=== PATIENT | female | born 1995 | race Caucasian/White ===

== ENCOUNTER → 2019-08-17 11:00 | Outpatient (BNVA) | payer OTHER, SELFPAY | PROVIDERS: Family Provider Family Medicine; PCP Family Medicine; Visit Provider Family Medicine | DX: I10 Essential (primary) hypertension (principal) | CPT/HCPCS: 80053; 85025 ==

== ENCOUNTER 2020-11-01 12:43 | Inpatient (IN) | payer OTHER, MEDICAID, SELFPAY ==
[2020-11-01] VITALS (52 sets, daily range): BP systolic 118–158; BP diastolic 66–111; PULSE 74–125; RESP 17; TEMP 36.1–36.9; O2SAT 97–99; BMI 25.4
[2020-11-01] MEDS: miSOPROStol 100 mcg tablet 25 MCG VAGINAL (13:13)
[2020-11-01 13:31] LABS: Basophils % 0.3 %; Eosinophils # 0.1 10^3/uL (0.0-0.8); Eosinophils % 0.5 %; Hemoglobin 12.1 g/dL (11.5-15.3); Lymphocytes # 1.8 10^3/uL (0.8-4.8); Lymphocytes % 17.3 %; Mean Corpuscular HGB Conc 33.6 g/dL (30.0-36.0); Mean Corpuscular Hemoglobin 31.9 pg (28.0-34.0); Mean Platelet Volume 10.6 fL (7.4-10.4); Monocytes # 0.6 10^3/uL (0.2-0.9); Monocytes % 5.6 %; Neutrophils # 7.88 10^3/uL (1.8-7.7); Neutrophils % 75.9 %; Nucleated Red Blood Cells % 0 %; Platelet Count 318 10^3/cmm (130-400); Red Blood Count 3.79 10^6/uL (4.1-5.3); Red Cell Distribution Width 12.8 % (12.1-15.1); White Blood Count 10.4 10^3/uL (4.0-10.0)
--- NOTE | 2020-11-01 16:11 | P.ANESASSM_ITS ---
Pre-Anesthetic Assessment Pre-Anesthetic Assessment: Height/Weight: Height 1.47 m Weight 55.338 kg Temp Pulse Resp BP 98.1 F 104 H 17 124/88 11/01/20 14:56 11/01/20 15:17 11/01/20 12:22 11/01/20 15:17 Was Beta Brett taken within 24 hours: N/A Was Clonidine taken within 24 hours: N/A Social: Social History: No alcohol and No tobacco Exam: Pre-Anes Outpt Exam: alert, oriented x 3, clear to auscultation bilaterally and regular rate & rhythm Airway: Submandibular: WNL Cervical ROM: WNL MP: 2 Dentition: Full CV/HEM: CV/HEM: HTN Anesthetic Plan: ASA status: 2 Anesthesia: Regional (specify below) (Labor epidural) Risk of > 500 ml blood loss (7ml/kg in children): No PFSH Anesthesia PFSH: Medical History (Updated 07/08/20 @ 12:49 by Madelyn Fernandez DO) Benign hypertension Surgical History History of appendectomy Family History Mother Crohn disease Father CAD (coronary artery disease) Social History Smoking and tobacco status: never smoked Alcohol intake: never Female Reproductive History: Date of last menstrual period: 01/30/20 : 5 Data Anesthesia CBC & Chem 7: 11/01/20 12:50 Other Labs: Laboratory Results - last 48 hr 11/01/20 12:50 WBC 10.4 H RBC 3.79 L Hgb 12.1 Hct 36.0 L MCV 95.0 MCH 31.9 MCHC 33.6 RDW 12.8 Plt Count 318 MPV 10.6 H Neut % (Auto) 75.9 Lymph % (Auto) 17.3 [place] % (Auto) 5.6 Eos % (Auto) 0.5 Baso % (Auto) 0.3 Neut # (Auto) 7.88 H Lymph # (Auto) 1.8 [place] # (Auto) 0.6 Eos # (Auto) 0.1 Baso # (Auto) 0.0 Nucleated RBC % (auto) 0 Nucleated RBCs # 0.0 Cardiac Studies: No Data to Display
[2020-11-01] MEDS: acetaminophen 325 mg Tablet 650 MG PO (17:01)
--- NOTE | 2020-11-01 17:04 | P.HP_ITS ---
Providers/Chief Complaint Admitting Physician: Luis Brown MD Primary Care Provider: Luis Brown MD Chief Complaint: elevated blood pressure and blurred vision History of Present Illness Rebekah Wagner is a 25 year old female who is a 5 para 2 with an EDC of 11/05/2020. She has been followed by this physician throughout her without any major problems or concerns. She was working today and found herself a little lightheaded and having some blurred vision. She also had a headache. At that time, they took her blood pressure and it was 156/112 and checked her urine which showed 2+ protein in her urine. She called this physician's office and she was sent to [facility] labor and delivery directly. On arrival to the OB department her blood pressure was 154/96. At that time a decision was made to proceed with misoprostel cervical ripening for -induced hypertension. She denies any significant edema or shortness of breath at this time. CBC was done on admission which showed a normal platelet count. The remainder of the preeclampsia profile will 1 and be drawn to see where we are at. Presently her blood pressure has come down to high normal levels with no tachycardia or other symptoms at this time. Her headache is improved. Review of Systems Const: Denies: fever(s), chills, change in appetite, change in weight or fatigue Eyes: Reports: blurry vision (This is improved at this time.) ENMT: Denies: throat pain, odynophagia or swelling of lips/tongue Card: Denies: chest pain, edema or dyspnea on exertion Resp: Denies: dyspnea, productive cough or non-productive cough GI: Denies: abdominal pain, nausea, vomiting, diarrhea or constipation : Reports: amenorrhea (She is 39 weeks . She is having occasional contractions.); Denies: vaginal bleeding Musc: Denies: neck pain or back pain Neuro: Reports: headache(s) (This is improved at this time.); Denies: sensory changes, difficulty walking, dizziness or vertigo Psych: Reports: anxiety (Slight.) Endo: Denies: polyuria, polydipsia, excessive sweating or heat intolerance Aftab/Lymph: Denies: easy bruising or enlarged lymph nodes All/Imm: Denies: urticaria, throat swelling or facial swelling Medications/Allergies Home Medications Medication Instructions Recorded Confirmed Last Taken Type azithromycin 250 mg tablet See Rx Instructions PO .COMPLEX #6 07/08/20 07/08/20 Unknown Rx tab amoxicillin 875 mg-potassium 1 tab PO Q12H #20 tab 07/15/20 Unknown Rx clavulanate 125 mg tablet ondansetron 4 mg disintegrating 4 mg PO Q8H PRN #10 tab 08/31/20 Unknown Rx tablet Allergies Allergy/AdvReac Type Severity Reaction Status Date / Time No Known Allergies Allergy Unverified 07/08/20 12:43 PFSH Acute PFSH: Medical History (Updated 11/01/20 @ 17:12 by Luis Brown MD) Benign hypertension Surgical History History of appendectomy Family History Mother Crohn disease Father CAD (coronary artery disease) Social History Smoking and tobacco status: never smoked Alcohol intake: never Female Reproductive History: Date of last menstrual period: 01/30/20 : 5 Vitals/I&O/Wt Last Vital Signs Temp 98.1 F 11/01/20 14:56 Pulse 99 11/01/20 16:38 Resp 17 11/01/20 12:22 BP 131/80 11/01/20 16:38 Weight last 48 hrs Weight 55.338 kg Physical Exam Const: COMMON NORMALS: no acute distress (She appears slightly uncomfortable with contractions.), healthy appearing, alert and well nourished HENMT: COMMON NORMALS: moist oral mucous membranes Resp: COMMON NORMALS: normal respiratory effort, No retractions, No use of accessory muscles and clear to auscultation bilaterally Cardio: COMMON NORMALS: regular rate, regular rhythm and No murmurs present (Cardio) GI: COMMON NORMALS: non-tender INSPECTION: Yes abdominal distension (She is 39 weeks .) Back/Pelvis: COMMON NORMALS: no CVA tenderness and no thoracic nor lumbar tenderness Extremity: COMMON NORMALS: normal to inspection, full ROM, no calf tenderness and no pedal edema Neuro: COMMON NORMALS: CN's II-XII intact bilaterally, moves all extremities, no focal motor deficits, no sensory deficits noted and deep tendon reflexes 2+ bilaterally Psych: COMMON NORMALS: mental status grossly normal, Normal thought process present, cooperative, normal affect and activity/motor behavior normal Skin: COMMON NORMALS: no rashes or lesions noted Data : 11/01/20 12:50 A&P Assessment and plan (1) -induced hypertension: As she is term and has -induced hypertension the decision is made after discussion with the patient and spouse to proceed with cervical ripening and induction. Her blood pressure will be monitored closely and if there is any sign of problems we may begin magnesium or emergency hypertensive measures if needed. We will going to check her preeclampsia profile from blood and urine and adjust orders depending on those findings. Status: Acute (2) Term : Secondary to her -induced hypertension we will go ahead and proceed with cervical ripening using misoprostol. Benefits and risks have been discussed with the patient and permission form has been signed. Status: Acute Attestations Medical Necessity Statement*: This patient has a term with -induced hypertension. We have begun induction processes to deliver her baby. I expect her hospital stay to be greater than 2 midnights at this time. Time Spent in Patient Care: 16 - 35 minutes Coding Level of Care Code Acute Transitional Kindergarten Teacher for Robb Fwd Diagnoses -induced hypertension O13.9 Term Z34.90
[2020-11-01 17:56] LABS: Add Urine Microscopic? YES; Bilirubin Urine 1+ (Negative); Blood Urine 2+ (Negative); Glucose Urine UA Norm (Normal); Ketones Urine 2+ (Negative); Leukocyte Esterase Urine Negative (Negative); Nitrate Urine Negative (Negative); Protein Urine Neg (Negative); Urine Appearance Clear (CLEAR); Urine Color Yellow (Yellow); Urobilinogen Urine 1 mg/dL (Negative); pH Urine 6.5 (5-7)
[2020-11-01 17:57] LABS: Bacteria Urine 1+ /hpf; Mucus Urine 2+ /hpf
[2020-11-01 18:01] LABS: Chloride 99 mmol/L (98-107); Potassium 4.1 mmol/L (3.5-5.1)
[2020-11-01 18:10] LABS: Urine Creatinine 170 mg/dL (28-217)
[2020-11-01 18:11] LABS: UPRO/UCREAT Ratio 0.12 mg/mg CR; Urine Protein Random 21 mg/dL
[2020-11-01 18:38] LABS: Alanine Aminotransferase 19 U/L (0-33); Albumin Level 3.8 g/dL (3.5-5.2); Alkaline Phosphatase 156 IU/L (35-105); Aspartate Amino Transferase 18 U/L (0-32); Blood Urea Nitrogen 12 mg/dL (6-20); Calcium 8.5 mg/dL (8.5-10.5); Carbon Dioxide 21 mmol/L (22-29); Globulin 2.8 g/dL (1.3-4.6); Glomerular Filtration Rate 121.8 mL/min (90-130); Glucose 69 mg/dL (65-115); Osmolality Calculated 272 mOsm/kg (285-295); Sodium 132 mmol/L (136-145); Total Bilirubin 0.5 mg/dL (0.15-1.2); Total Protein 6.6 g/dL (6.6-8.7); Uric Acid 4.3 mg/dL (2.4-5.7)
[2020-11-01] MEDS: lactated ringers 1,000 ML 999 ML IV (20:02)
--- NOTE | 2020-11-01 21:12 | ANES.PROC ---
Anesthesia Procedures Procedure/Date: 11/01/20 Procedure Narrative: LABOR EPIDURAL Epidural: Time Out Performed: Yes Consents Signed: Procedure Consent Consent: from patient, risks and benefits reviewed and patient agrees to proceed Lumbar Level: L3-L4 Epidural position: sitting Epidural procedure: sterile prep of area, 1% lidocaine to numb the area (2 ML), 18 g needle, negative for paresthesia passed, neg for paresthesia, test dose given, 1.5% xylocaine 1:200k epi (3 ML), placed PCEA, no systemic response, sterile dressing applied, L.U.D. no apparent complications and 0.2% Ropiavacaine @ mls/hr (9) Additional Comments: LOT [id number] EXP 2021-03-30 LABOR EPIDURAL REQUESTED. R/B DISCUSSED. PATIENT WISHES TO PROCEED. STERILE PREP AND DRAPE. JOANA, CATH ADVANCED EASILY. TAPED AT 11. TOLERATED WELL. NEG TEST DOSE. GOOD PAIN CONTROL NOTED.
[2020-11-01] MEDS: dextrose 5%-lactated ringers 1,000 ML 125 ML IV (21:21)
[2020-11-02] VITALS (19 sets, daily range): BP systolic 108–137; BP diastolic 62–93; PULSE 64–98; RESP 16; TEMP 35.7–36.9
--- NOTE | 2020-11-02 00:04 | P.PCNOB_ITS ---
Delivery Note: Date of delivery: November 02, 2020 this 25-year-old 5 now para 3 female at 39 weeks and 4 days gestation had began having a headache and blurred vision. She was found to have elevated blood pressure and protein in her urine and thus she was sent to [facility] labor and delivery. Evaluation there found her to have elevated blood pressure but no edema or other significant findings. As she was term with -induced hypertension the decision was made to proceed with misoprostol cervical ripening for induction purposes. She was given misoprostol 25 mcg x 1 dose and began having contractions. She contracted throughout the day and dilated to approximately 5 cm dilated. She was feeling a lot of pressure in spite of epidural anesthesia. Artificial rupture membranes was accomplished with a small amount of clear fluid obtained. She dilated to complete cervical dilatation and +2 station. She then was able to deliver a healthy, viable female by spontaneous vaginal delivery at 2327. Upon delivery the head the mouth and nose were suctioned at the perineum followed by delivery of the right shoulder anteriorly in the left shoulder posteriorly and the remainder of the . The was suctioned some more and then laid on mother's abdomen. She continued to spit up lots of clear fluid and after 1 minute the umbilical cord was clamped and cut. The was then taken to the warmer where she was deleed with approximately 20 mL of clear fluid obtained. She developed some tachypnea and the O2 sats were slow to come up. Therefore, she was given positive pressure with oxygen around 30% and is doing well. Infant Apgars were 7 and 8 at 1 and 5 minutes respecti vely. There was no nuchal cord and the cord had 3 blood vessels. There was no episiotomy and no lacerations. weighed 6 pounds 5 ounces. There was no complications. Estimated blood loss approximately 113 mL. A&P Assessment and plan (1) -induced hypertension: This was not a problem during labor or delivery process. Presently her blood pressure is not bad at all. Status: Acute (2) Normal spontaneous vaginal delivery: Patient did well with labor and delivery process after misoprostol cervical ripening. She will be followed for routine care and change will be made as necessary. Status: Acute Coding Level of Care Code Acute Production Machine Shop Supervisor for Cristian Sutton Diagnoses -induced hypertension O13.9 Normal spontaneous vaginal delivery O80
--- NOTE | 2020-11-02 07:16 | P.PN_ITS ---
LAMP CLEANER Subjective Subjective: Interval history: Patient is doing well with mild lochia. She is bonding with very well with her infant. She is formula feeding at this time. Labor: Station: +1 Amniotic Membrane Status: Ruptured Monitor Mode: Palpation Contraction Pattern: Regular Vitals/I&O/Wt Last Vital Signs Temp 96.3 F L 11/02/20 05:34 Pulse 76 11/02/20 05:33 Resp 16 11/02/20 00:34 BP 131/84 11/02/20 05:33 Pulse Ox 98 11/01/20 21:41 11/01/20 11/02/20 11/02/20 22:59 06:59 14:59 Intake Total 1000 / 1000 1036 / 2036 Output Total 900 / 910 Balance 990 / 990 136 / 1126 Weight last 48 hrs Weight 55.338 kg Physical Exam Const: COMMON NORMALS: no acute distress, patient oriented x3, healthy appearing, alert and well nourished Resp: COMMON NORMALS: normal respiratory effort, No retractions and No use of accessory muscles Cardio: COMMON NORMALS: regular rate, regular rhythm and No murmurs present (Cardio) RATE: regular rate RHYTHM: regular rhythm GI: COMMON NORMALS: Normal to inspection, nondistended, normoactive bowel sounds present, Soft to palpation and non-tender PALPATION: Yes Soft to palpation : COMMON NORMALS: Yes no CVA tenderness BLADDER/KIDNEY EXAM: Yes no CVA tenderness EXTERNAL FEMALE EXAM: Yes other (Fundus is firm.) Back/Pelvis: COMMON NORMALS: no CVA tenderness Neuro: COMMON NORMALS: patient oriented x3 SENSORIUM/ORIENTATION: Yes alert Psych: COMMON NORMALS: mental status grossly normal, Normal thought process present and cooperative THOUGHT PROCESS: Normal thought process present Skin: COMMON NORMALS: no rashes or lesions noted, no wounds and turgor normal GENERAL SKIN EXAM: no rashes or lesions noted and turgor normal Data : 11/01/20 12:50 11/01/20 17:15 A&P Assessment and plan (1) Normal spontaneous vaginal delivery: Patient is doing well with just mild lochia. She is ambulating well and tolerating a regular diet. Status: Acute (2) -induced hypertension: Blood pressures are running normal at this time. Status: Acute Attestations Medical Necessity Statement*: This patient delivered a baby by spontaneous vaginal delivery a little before midnight last night. She will require 1 more midnight hospital stay. Time Spent in Patient Care: less than 15 minutes Coding Level of Care Code Acute Speech Language Pathologist Prn for Chg Fwd Diagnoses Normal spontaneous vaginal delivery O80 -induced hypertension O13.9
[2020-11-02] MEDS: docusate sodium 100 mg Capsule PO ×2 (09:05→21:45)
[2020-11-02] MEDS: ibuprofen 800 mg tablet PO ×3 (09:05→21:44)
[2020-11-02] MEDS: prenatal vitamin Capsule 1 CAP PO (09:06)
[2020-11-02 14:29] LABS: Hematocrit 32.6 % (37.0-47.0); Hemoglobin 10.8 g/dL (11.5-15.3); Mean Corpuscular HGB Conc 33.1 g/dL (30.0-36.0); Mean Corpuscular Hemoglobin 31.3 pg (28.0-34.0); Mean Corpuscular Volume 94.5 fL (81-99); Mean Platelet Volume 10.8 fL (7.4-10.4); Platelet Count 278 10^3/cmm (130-400); Red Blood Count 3.45 10^6/uL (4.1-5.3); Red Cell Distribution Width 12.6 % (12.1-15.1)
[2020-11-03 00:01] VITALS: RESP 16
[2020-11-03 04:32] VITALS: BP 125/83; PULSE 75; TEMP 35.9
--- NOTE | 2020-11-03 09:06 | PM.OBGYDC ---
Discharge Providers LIFE SCIENCES TEACHER Date of Admission: 11/01/20 12:43 Date of Discharge: 11/03/20 Attending Provider at Admission: Luis Brown MD Attending Provider at Discharge: Luis Brown MD Primary Care Provider: Luis Brown MD Diagnoses at Discharge Discharge Diagnosis (1) Normal spontaneous vaginal delivery: Status: Acute (2) -induced hypertension: Status: Acute Reason for Visit Reason for Visit: elevated blood pressure and blurred vision Hospital Course Hospital Course Patient was admitted on her day of admission secondary to -induced hypertension and term . She was given misoprostol 25 mcg x 1 dose and delivered by spontaneous vaginal delivery shortly before midnight the day of admission. Since delivery, she is done extremely well. She is just had mild lochia with no significant clots or pain or cramping. She is ambulating well and tolerating regular diet and is felt to be stable for discharge. Information Peripartum Data: Delivery Method: Vaginal Physical Exam Const: COMMON NORMALS: no acute distress and healthy appearing GENERAL APPEARANCE: cooperative, comfortable and well kempt HENMT: COMMON NORMALS: moist oral mucous membranes Resp: COMMON NORMALS: normal respiratory effort and clear to auscultation bilaterally AUSCULTATION: clear to auscultation bilaterally Cardio: COMMON NORMALS: regular rate and regular rhythm RATE: regular rate RHYTHM: regular rhythm GI: COMMON NORMALS: Normal to inspection, nondistended, normoactive bowel sounds present, Soft to palpation and non-tender (Fundus is firm.) PALPATION: Yes Soft to palpation Extremity: COMMON NORMALS: normal to inspection, full ROM and no pedal edema Neuro: COMMON NORMALS: no focal motor deficits and no sensory deficits noted Psych: COMMON NORMALS: mental status grossly normal, cooperative and normal affect APPEARANCE: Yes well kempt Skin: COMMON NORMALS: no rashes or lesions noted GENERAL SKIN EXAM: no rashes or lesions noted Discharge Data Data Completed and Pending: Labs from last 24 hours 11/02/20 13:52 WBC 10.0 RBC 3.45 L Hgb 10.8 L Hct 32.6 L MCV 94.5 MCH 31.3 MCHC 33.1 RDW 12.6 Plt Count 278 MPV 10.8 H Vitals: Last Vital Signs Temp 96.6 F L 11/03/20 04:32 Pulse 75 11/03/20 04:32 Resp 16 11/03/20 00:01 BP 125/83 11/03/20 04:32 Pulse Ox 98 11/01/20 21:41 Discharge Plan Discharge Patient Disposition: Home Condition: Stable Prescriptions: No Action azithromycin [Zithromax Z-Ramsey] 250 mg tablet See Rx Instructions PO .COMPLEX Qty: 6 RF: 0 amoxicillin-pot clavulanate [Augmentin] 875-125 mg tablet 1 tab PO Q12H Qty: 20 RF: 0 ondansetron 4 mg tablet,disintegrating 4 mg PO Q8H PRN (Reason: nausea and vomiting) Qty: 10 RF: 0 Referrals: Luis Brown MD [Primary Care Provider] - 6 Weeks Discharge Diet: Usual diet Discharge Activity: Resume usual activity Patient Instructions: Opioid Safety Discharge Attestations LIFE SCIENCES TEACHER Time Spent in Discharge Care*: less than 30 min Specific Discharge Activities: Specific discharge activities: educating patient, documenting/other paperwork and evaluating patient/reviewing data Coding Level of Care Code Acute Shaving Machine Operator for [facility] Fwd Exam Comprehensive Diagnoses Normal spontaneous vaginal delivery O80 -induced hypertension O13.9
[2020-11-03 09:49] VITALS: BP 175/99; PULSE 101; TEMP 36.7
[2020-11-03] MEDS: prenatal vitamin Capsule 1 CAP PO (09:51)
[2020-11-03] MEDS: ibuprofen 800 mg tablet PO (09:51)
[2020-11-03] MEDS: docusate sodium 100 mg Capsule PO (09:52)
[2020-11-03 09:53] VITALS: BP 160/95; PULSE 88
[2020-11-03 09:57] VITALS: BP 148/92; PULSE 107
[2020-11-03 10:10] VITALS: BP 148/92; PULSE 107; RESP 15; TEMP 36.8
== END 2020-11-03 10:10 | disposition home or self-care (01) | DRG 807 ==
LOC: OPOB 12:50 → OBGYN 12:50
PROVIDERS: Admitting Provider Family Medicine; PCP Family Medicine; Visit Provider Family Medicine
DX: O13.4 Gestational [pregnancy-induced] hypertension without significant proteinuria, complicating childbirth (principal); Z37.0 Single live birth; Z3A.39 39 weeks gestation of pregnancy
CPT/HCPCS: 36415; 51702; 59025; 59409; 80053; 81001; 82570; 84156; 84550; 85025; 85027; 99211; J2795

== ENCOUNTER → 2021-02-22 11:28 | Outpatient (BNVA) | payer OTHER, MEDICAID, SELFPAY | PROVIDERS: PCP Family Medicine; Visit Provider Nurse Practitioner | DX: J06.9 Acute upper respiratory infection, unspecified (principal); Z20.822 Contact with and (suspected) exposure to COVID-19 | CPT/HCPCS: 87635 ==

== ENCOUNTER → 2021-03-08 11:39 | Outpatient (BNVA) | payer OTHER, MEDICAID, SELFPAY | PROVIDERS: PCP Family Medicine; Visit Provider Nurse Practitioner | DX: R53.83 Other fatigue (principal); R25.2 Cramp and spasm | CPT/HCPCS: 80053; 82306; 82728; 84439; 84443; 85025 ==

== ENCOUNTER → 2021-03-27 14:37 | Outpatient (BNVA) | payer OTHER, MEDICAID, SELFPAY | PROVIDERS: PCP Family Medicine; Visit Provider Pediatrics Adolescent Medicine | DX: R30.9 Painful micturition, unspecified (principal) | CPT/HCPCS: 81003 ==

== ENCOUNTER → 2021-04-26 14:12 | Outpatient (BNVA) | payer OTHER, MEDICAID, SELFPAY | PROVIDERS: PCP Family Medicine; Visit Provider Obstetrics & Gynecology | DX: Z12.4 Encounter for screening for malignant neoplasm of cervix (principal) | CPT/HCPCS: 88175 ==

== ENCOUNTER 2021-08-17 08:32 | Outpatient (CLI) | payer OTHER, MEDICAID, SELFPAY ==
--- NOTE | 2021-08-17 | US_ITS ---
WS: [id number] TRANSABDOMINAL PELVIC AND TRANSVAGINAL PELVIC ULTRASOUND HISTORY: PELVIC PAIN COMPARISON: 07/13/2016 Uterus: 7.1 cm x 4.7 cm x 3.8 cm. Normal size uterus is mobile. No fibroid or mass. Endometrium: 1.1 cm. Very minimally heterogeneous endometrium. No abnormality. Right ovary: 4.1 cm x 2.5 cm x 2.1 cm. Normal size RIGHT ovary with a few small follicles. In the jessica tral over this area increased echogenicity which may be collapsing hemorrhagic cyst. Left ovary: 3.5 cm x 1.7 cm x 1.8 cm. Small follicles. No mass. Normal vascularity. There is a very small amount of free fluid in the cul-de-sac and adjacent to the RIGHT ovary. US/US pelvic with transvaginal IMPRESSION: 1. No endometrial abnormality. 2. Small amount of free fluid in the pelvis and adjacent to the RIGHT ovary. 3. Mildly hemorrhagic cyst within the RIGHT ovary appears collapsed. No solid mass.
== END 2021-08-17 08:33 | disposition home or self-care (01) ==
PROVIDERS: PCP Family Medicine; Visit Provider Nurse Practitioner
DX: R10.2 Pelvic and perineal pain (principal); N83.201 Unspecified ovarian cyst, right side
CPT/HCPCS: 76830; 76856

== ENCOUNTER → 2022-01-23 11:19 | Outpatient (BNVA) | payer OTHER, MEDICAID, SELFPAY | PROVIDERS: Visit Provider Family Medicine | DX: R10.13 Epigastric pain (principal) | CPT/HCPCS: 80053; 85025 ==

== ENCOUNTER → 2022-02-01 12:55 | Outpatient (BNVA) | payer OTHER, MEDICAID, SELFPAY | PROVIDERS: Referring Provider Student in an Organized Health Care Education/Training Program; Visit Provider Student in an Organized Health Care Education/Training Program | DX: D72.820 Lymphocytosis (symptomatic) (principal) | CPT/HCPCS: 36415; 80503; 82550; 84443; 84484; 85651; 86038; 86140; 86308; 86618; 86664; 86665; 86666; 86757 ==

== ENCOUNTER 2022-03-09 14:55 | Outpatient (CLI) | payer OTHER, MEDICAID, SELFPAY ==
--- NOTE | 2022-03-09 15:15 | USCV_ITS ---
Rebekah Wagner Age: 26 Gender: F : 1995 Exam Date: 03/09/2022 15:05 Ordering Phys: Usha Bangura MD Technologist: Clarissa Flores [place] [facility] [place]: Tachycardia BP: 130 / 80 HR: 92 Rhythm: Sinus Technical Quality: Adequate MEASUREMENTS (Male / Female) Normal Values 2D ECHO LV Chamber Size 2.8 cm RV Chamber Size 2.5 cm LV Ejection Fraction MOD 2C 67.9 % LV Ejection Fraction 2C AL 69.9 % LA Diameter 2.8 cm LA Width 2.1 cm LA Height 2.4 cm RA Width 2.5 cm RA Height 2.4 cm IVC Diameter 1.1 cm M-MODE Aortic Annulus Diameter 2.6 cm LA Ao Ratio MM 1.1 MV E Point Septal Separation 0.7 cm DOPPLER AV Peak Velocity 127.0 cm/s LVOT Peak Velocity 99.0 cm/s MV Area PHT 4.1 cm squared Mitral E to A Ratio 1.0 MV E' Velocity 51.0 cm/s Mitral E to MV E' Ratio 4.8 Mitral E to LV E' Lateral Ratio 4.6 Mitral E to LV E' Septal Ratio 5.0 TR Peak Velocity 110.7 cm/s TR Peak Gradient 4.9 mmHg TR Mean Velocity 72.6 cm/s TR Mean Gradient 2.5 mmHg TR Velocity Time Integral 25.4 cm TV Peak E Velocity 68.0 cm/s Right Atrial Pressure 3.0 mmHg Pulmonary Artery Systolic Pressu 7.9 mmHg RV Acceleration Time 0.2 s RV Ejection Time 0.3 s RV AcT/ET 0.5 FINDINGS Left Ventricle Left ventricle is normal in size. LV systolic function is normal with EF 55 to 60%. No regional wall motion abnormalities are seen. Diastolic function is normal Right Ventricle Normal in size and function Right Atrium Normal in size Left Atrium Normal in size Mitral Valve Mitral valve is structurally normal. No significant stenosis or regurgitation Aortic Valve Structurally normal aortic valve. No significant stenosis or regurgitation. Tricuspid Valve Trace tricuspid regurgitation. Insufficient TR jet to evaluate RVSP. Pulmonic Valve Not well visualized Pericardium Normal Aorta Normal in size IVC IVC appears to be normal CONCLUSIONS LV systolic function is normal with EF 55 to 60%. Diastolic function is normal. Trace tricuspid regurgitation. No comparison studies are available Tim Da Silva MD (Electronically Signed) Final Date: 24 March 2022 12:38 S
== END 2022-03-09 14:56 | disposition home or self-care (01) ==
PROVIDERS: PCP Family Medicine; Visit Provider Student in an Organized Health Care Education/Training Program
DX: R00.0 Tachycardia, unspecified (principal); R00.2 Palpitations; I07.1 Rheumatic tricuspid insufficiency
CPT/HCPCS: 93306

== ENCOUNTER 2022-03-24 17:23 | Outpatient (CLI) | payer OTHER, MEDICAID, SELFPAY ==
--- NOTE | 2022-03-24 17:36 | XRR_ITS ---
PROCEDURE INFORMATION: Exam: XR Abdomen Exam date and time: 03/24/2022 5:37 PM Age: 26 years old Clinical indication: Abdominal pain; Additional info: Stomach pain TECHNIQUE: Imaging protocol: Radiologic exam of the abdomen. Views: Frontal supine view of the abdomen. 1 View. COMPARISON: No relevant prior studies available. FINDINGS: Gastrointestinal tract: Constipation without bowel dilation to indicate obstruction. Bones/joints: Unremarkable. XR/XR [id number] IMPRESSION: Constipation without bowel dilation to indicate obstruction.
== END 2022-03-24 17:24 | disposition home or self-care (01) ==
LOC: RAD 17:23
PROVIDERS: PCP Family Medicine; Visit Provider Nurse Practitioner
DX: K59.00 Constipation, unspecified (principal); R10.9 Unspecified abdominal pain
CPT/HCPCS: 74018

== ENCOUNTER → 2022-06-07 09:17 | Outpatient (BNVA) | payer OTHER, MEDICAID, SELFPAY | PROVIDERS: PCP Family Medicine; Visit Provider Nurse Practitioner | DX: J02.9 Acute pharyngitis, unspecified (principal) | CPT/HCPCS: 87070 ==

== ENCOUNTER 2022-06-19 11:30 | Outpatient (CLI) | payer OTHER, MEDICAID, SELFPAY ==
--- NOTE | 2022-06-19 12:00 | USCV_ITS ---
Rebekah Wagner Age: 27 Gender: F : 1995 Exam Date: 06/19/2022 11:38 Ordering Phys: Saúl Lee MD ([email or web address]) Technologist: CT Exam Location: [facility] – [place] Indication: stenosis/occlusion Risk Factors: Previous Vascular Surgery: Right Brachial BP: / Left Brachial BP: / Right Left Velocity (cm/s) Spectral Plaque Velocity (cm/s) Spectral Plaque Syst/Diast Broadening Syst/Diast Broadening 83.20/ 22.70 Prox CCA 124.50/ 25.10 85.20/ 27.50 Mid CCA 123.40/ 32.80 87.90/ 33.00 Distal CCA 101.60/ 38.20 73.30/ 34.80 Prox ICA 75.50 / 32.60 88.10/ 35.90 Mid ICA 88.30 / 30.90 78.70/ 31.20 Distal ICA 76.30 / 34.30 67.80 ECA 65.00 1.00 ICA/CCA 0.71 Antegrade Vertebral Antegrade 65.10/ 16.50 cm/s 97.00/ 30.90 cm/s Tri Subclavian Tri 83.50 92.90 FINDINGS No significant plaques No Unstable lesions normal Doppler flow velocities and ratios CONCLUSIONS No significant stenosis or unstable lesions in the internal carotid arteries bilaterally, based on the above findings Dr Saúl Lee MD [facility] (Electronically Signed) Final Date: 21 June 2022 08:24 S
== END 2022-06-19 11:31 | disposition home or self-care (01) ==
PROVIDERS: PCP Family Medicine; Visit Provider Internal Medicine Cardiovascular Disease
DX: I65.23 Occlusion and stenosis of bilateral carotid arteries (principal)
CPT/HCPCS: 93880

== ENCOUNTER → 2022-07-04 12:28 | Outpatient (BNVA) | payer OTHER, MEDICAID, SELFPAY | PROVIDERS: PCP Family Medicine; Visit Provider Family Medicine | DX: R00.0 Tachycardia, unspecified (principal); G47.00 Insomnia, unspecified; R06.02 Shortness of breath; I10 Essential (primary) hypertension | CPT/HCPCS: 80053; 82607; 85025 ==

== ENCOUNTER 2022-08-08 10:00 | Outpatient (CLI) | payer MEDICAID, SELFPAY ==
[2022-08-08 10:14] VITALS: BMI 19.4
--- NOTE | 2022-08-08 11:13 | ECG_ITS ---
[facility] Test Date: 2022-08-08 Pat Name: Rebekah Wagner Department: Room: Gender: Female Investment Analyst: : 1995 Requested By: Saúl Lee Order Number: [id number] Mica MD: Saúl Lee M.D. Interpretive Statements NAME OF STUDY: Exercise/sestamibi/sestamibi stress test INDICATION: VARGAS, PROCEDURE: The baseline electrocardiogram showed normal sinus rhythm with a diffuse nonspecific ST-T changes. At the baseline, the patient's blood pressure was 140/85 mm Hg with a heart rate of 106. The patient exercised for 11 minutes and 30 seconds on a standard Brenden protocol. Patient attained a maximum heart rate of 181 beats per minute(93% of the maximum predicted heart rate) with a blood pressure at the peak exercise of 157/95 mm Hg. The EKG at the peak exercise revealed no significant changes. Patient did not have any chest pain or any significant arrhythmis with the exercise Sestamibi was injected 1 minute prior to the peak exercise During the recovery phase, there were no new changes. Blood pressure at the end of the recovery phase was 127/85 mm Hg with a heart rate of 102 per minute. CONCLUSION: 1. No significant EKG changes with the treadmill exercise 2. No exercise-induced chest pain or cardiac arrhythmia 3. Good exercise tolerance, attained a maximum of 13.5 METs 4. Sestamibi/Sestamibi perfusion results pending; see separate report. Electronically Signed On 08-11-2022 13:50:39 [employer] by Saúl Lee M.D. [email or web address]
--- NOTE | 2022-08-08 11:13 | NMCV_ITS ---
NM nickie perf SPECT r/s* [id number] Rebekah Wagner Age: 27 Gender: F : 1995 Exam Date: 08/08/2022 11:58 Ordering Phys: Saúl Lee MD ([email or web address]) Technologist: SHERYL Aj Exam Location: [facility] Indications: DYSPNEA ON EXERTION STRESS TEST Please [facility] IMAGE PROTOCOL Rest/Stress 1 Exercise Day Radiopharmaceutical Dose (mCi) Administration Site Administered by Rest: Tc-99m 9.8 IV SHERYL Aj Sestamibi Stress:Tc-99m 30.1 IV SHERYL Avilez Sestamibi Rest: 08-Aug-2022 60 Discovery 630 Stress: 08-Aug-2022 30 Discovery 630 Radiopharmaceutical was injected at 91 % maximum heart rate. Images obtained in supine and prone position. SPECT RESULTS Technical Quality: Excellent Raw Data Analysis: Normal Image Corrections: No attenuation or motion correction applied Summed Stress Score: 0 Summed Rest Score: 0 Summed Difference Score: 0 PERFUSION FINDINGS Fairly uniform myocardial tracer uptake FUNCTIONAL RESULTS (calculated via Gated SPECT) Stress Image LV EF (%): 71 Stress EDV (mL):48 TID: 0.88 Stress ESV (mL):14 FUNCTIONAL FINDINGS: Segmental wall motion analysis revealing no gross wall motion abnormalities IMPRESSIONS 1. Unremarkable Myocardial perfusion imaging. 2. Normal LV ejection fraction of 71%. 3. LV wall motion analysis revealing no gross wall motion abnormalities. 4. Normal LV volume Low probability for coronary ischemia, based on the above findings Dr Saúl Lee MD [facility] (Electronically Signed) Final Date: 08 August 2022 13:30 S
[2022-08-08 12:52] VITALS: BP 127/85; PULSE 103
== END 2022-08-08 10:01 | disposition home or self-care (01) ==
LOC: CDL 10:05
PROVIDERS: PCP Family Medicine; Visit Provider Internal Medicine Cardiovascular Disease
DX: R06.09 Other forms of dyspnea (principal)
CPT/HCPCS: 36415; 78452; 81025; 93017; A9500

== ENCOUNTER 2022-09-04 13:49 | Inpatient (IN) | payer MEDICAID, SELFPAY ==
[2022-09-04] VITALS (59 sets, daily range): BP systolic 72–119; BP diastolic 41–84; PULSE 118–174; RESP 0–39; TEMP 36.9–39.7; O2SAT 93–100; BMI 19.4
--- NOTE | 2022-09-04 13:55 | ECG_ITS ---
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 Measurements Intervals [place] Rate: 182 P: 0 TN: 0 QRS: 69 QRSD: 60 T: 70 QT: 235 QTc: 410 Interpretive Statements SUPRAVENTRICULAR TACHYCARDIA NONSPECIFIC ST & T-WAVE ABNORMALITY CRITICAL TEST RESULT No previous ECG available for comparison Electronically Signed On 09-04-2022 18:18:43 AUTOMATED PROCESS OPERATOR by Brian Luna M.D. [email or web address] [email or web address]/store/[id number] f
--- NOTE | 2022-09-04 13:56 | W.ED.FEVER ---
HPI - Fever General: Chief Complaint: Fever Stated Complaint: fever, n/v Time Seen by Provider: 09/04/22 13:56 History of Present Illness: Ms. Wagner is a 27-year-old lady with history of hypertension, tachycardia presenting to the emergency department for generalized illness. Reports symptoms starting over the past 2 days with body aches, chills, subjective fevers, nausea, vomiting, tachycardia, shortness of breath, lightheadedness. Symptoms are worse with exertion. Moderate to severe in intensity. No other specific changes in health, exacerbating, or alleviating factors identified. Onset (ago): day(s) Exacerbating factors: nothing Relieving factors: nothing Associated symptoms: Reports chills, chest pain, myalgias, nausea, short of breath, vomiting and other Review of Systems General: Reports: 10 or more systems reviewed and unremarkable except in HPI and below Const: Reports: chills Card: Reports: chest pain GI: Reports: nausea and vomiting PFS ED PFSH: Medical History Benign hypertension Has chronic hypertension diagnosed in 2018 and is not currently on any medication. This is managed by her primary care provider Chest discomfort No pertinent past medical history Denies diabetes, asthma, seizures, DVT/PE PCP: Dr. Kevin Camposness of breath Surgical History History of appendectomy Laparoscopic procedure performed in 2011 Family History Father Hypertension CAD (coronary artery disease) Stroke CVA in 30's Mother Crohn disease Denies family history of Colon cancer Ovarian cancer Diabetes Clotting disorder Dementia Heart disease Hyperlipidemia Chronic kidney disease (CKD) Breast cancer Suicide Anesthesia complication Bleeding disorder Lung disease Cancer Uterine cancer Thyroid condition Social History (Updated 09/12/22 @ 15:30 by Kiya Mcclure LPN) Smoking and tobacco status: never smoked Alcohol intake: never Lives independently: Yes Marital status: Number of children: 3 Current occupational status: employed 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 Current gender identity: Female Physical Exam Const: COMMON NORMALS: alert GENERAL APPEARANCE: cooperative, well developed and ill appearing HENMT: COMMON NORMALS: normocephalic and atraumatic HEAD & SCALP: normocephalic and atraumatic Eye: COMMON NORMALS: conjunctivae normal CONJUNCTIVA: Yes conjunctivae normal SCLERA: sclerae normal Neck/C-Spine: COMMON NORMALS: supple GENERAL: Yes trachea midline Resp: COMMON NORMALS: normal respiratory effort and clear to auscultation bilaterally EFFORT & INSPECTION: Yes tachypneic AUSCULTATION: clear to auscultation bilaterally Cardio: COMMON NORMALS: regular rhythm RATE: tachycardic RHYTHM: regular rhythm GI: COMMON NORMALS: Soft to palpation PALPATION: Yes Soft to palpation and No Tenderness to palpation present (GI) Extremity: GENERAL: Yes normal exam except as noted and No edema Neuro: COMMON NORMALS: moves all extremities SENSORIUM/ORIENTATION: Yes alert and No Orientation impaired Psych: COMMON NORMALS: mental status grossly normal and Normal thought process present THOUGHT PROCESS: Normal thought process present Procedures Lumbar Puncture Time Out Performed: Yes Patient Position: left lateral decubitus Skin Prep: Povidone-Iodine 1% and 0.5% Chlorhexidine/Alcohol Local Anesthetic: lidocaine 2% and with epi Amount of anesthesia used (mL): 10 Spinal Needle Gauge: 20G Interspace Used: L3-L4 Opening Pressure (cmH20): 18 Fluid Initially Obtained: clear Complications: none Course Vital Signs: Vital signs: Vital Signs Temperature 98.1 F 09/07/22 13:17 Pulse Rate 85 09/07/22 13:17 Respiratory Rate 17 09/07/22 13:17 Blood Pressure 117/74 09/07/22 13:17 Pulse Oximetry 99 09/07/22 13:17 Oxygen Delivery Me thod 09/07/22 12:00 MDM - Fever Medical Decision Making 27-year-old lady presenting with generalized illness. Patient is ill-appearing on clinical exam with tachycardia. EKG notable for sinus tachycardia, no STEMI. Labs notable for leukocytosis, normal hemoglobin. Metabolic panel with evidence of mild dehydration/metabolic stress. Lactic acid is elevated, magnesium is mildly low. Negative range 2-hour delta troponin. Urinalysis with possible evidence of urinary tract infection though squamous epithelial contamination is present. Chest x-ray with no lobar consolidation or pneumothorax. Given patient's overall clinical appearance she requires advanced imaging. CT head with paranasal sinus inflammation however no acute intracranial abnormality. CT without acute pathology to explain symptoms. During ED course patient treated with IV fluids and broad-spectrum antibiotics. Given her history of tachycardia after fluid resuscitation a small dose of metoprolol was given. Antiemetic and magnesium supplementation also given. Patient appears to have sepsis picture though no clear etiology of infection is identified. Urinalysis is not convincing however may be a source if everything else is ruled out. The results of ED evaluation were discussed with the patient including plan for admission due to requirement for level of care not available if discharged to prevent significant worsening/deterioration. Patient agreeable with plan. Discussed with hospitalist service who was agreeable to admit patient. In further discussion after hospitalist evaluation of patient we will perform lumbar puncture. This is reasonable as the patient has evidence of infection as noted above without clear source and does endorse headache. She was consented for procedure and procedure performed without complication and sample sent to lab for further analysis. Medical Records I reviewed the patient's medical records. Lab Data I reviewed the patient's lab results. 09/04/22 14:00 09/04/22 14:00 Radiology Impressions Chest X-Ray 09/04/22 14:01 IMPRESSION: No acute findings. Chest/Abdomen/Pelvis CT 09/04/22 16:16 IMPRESSION: 1. No acute pulmonary findings. 2. 5 mm pulmonary nodules. If the patient does not have known cancer, follow up should be based on clinical information because of the low risk of cancer IMPRESSION: 1. No acute findings. COMMENTS: Consistent with the [employer]'s Incidental Findings Committee white paper (J Am Laura Radiol 2018): Any incidental renal lesion less than 1 cm or classified as too small to characterize, or any incidental cystic renal lesion characterized as simple-appearing, is likely benign. No follow-up imaging is recommended for these lesions per consensus recommendations based on imaging criteria. ADDENDUM: 09/04/22 1832 Findings were discussed with Dr Cardenas at 09/04/2022 6:27 PM COMMISSIONER OF INTERNAL REVENUE. The case was reviewed again for evidence of pyelonephritis or infection of the collecting system. There is no convincing evidence for pyelonephritis. 1-2 mm nonobstructing right renal calculus is noted in retrospect. Head CT 09/04/22 18:40 IMPRESSION: 1. No acute intracranial abnormality. 2. Inflammatory changes of the paranasal sinuses. Gallbladder Ultrasound 09/04/22 20:21 IMPRESSION: Normal RIGHT upper quadrant ultrasound. Cervical Spine CT 09/06/22 08:53 IMPRESSION: No evidence of discitis or osteomyelitis. Lumbar Spine CT 09/06/22 08:53 IMPRESSION: No evidence of discitis or osteomyelitis. Thoracic Spine CT 09/06/22 08:53 IMPRESSION: No acute thoracic spine findings. Laboratory Results WBC 29.4 10^3/uL (4.0-10.0) H 09/04/22 14:00 RBC 4.79 10^6/uL (4.1-5.3) 09/04/22 14:00 Hgb 14.5 g/dL (11.5-15.3) 09/04/22 14:00 Hct 43.3 % (37.0-47.0) 09/04/22 14:00 MCV 90.4 fl (81-99) 09/04/22 14:00 MCH 30.3 pg (28.0-34.0) 09/04/22 14:00 MCHC 33.5 g/dL (30.0-36.0) 09/04/22 14:00 RDW 12.3 % (12.1-15.1) 09/04/22 14:00 Plt Count 425 10^3/cmm (130-400) H 09/04/22 14:00 MPV 9.3 fL (7.4-10.4) 09/04/22 14:00 Neut % (Auto) 93.6 % 09/04/22 14:00 Lymph % (Auto) 3.1 % 09/04/22 14:00 [place] % (Auto) 0.7 % 09/04/22 14:00 Eos % (Auto) 1.2 % 09/04/22 14:00 Baso % (Auto) 0.3 % 09/04/22 14:00 Neut # (Auto) 27.49 10^3/uL (1.8-7.7) H 09/04/22 14:00 Lymph # (Auto) 0.9 10^3/uL (0.8-4.8) 09/04/22 14:00 [place] # (Auto) 0.2 10^3/uL (0.2-0.9) 09/04/22 14:00 Eos # (Auto) 0.3 10^3/uL (0.0-0.8) 09/04/22 14:00 Baso # (Auto) 0.1 10^3/uL (0.0-0.1) 09/04/22 14:00 Nucleated RBC % (auto) 0 % 09/04/22 14:00 Nucleated RBCs # 0.0 /100WBC 09/04/22 14:00 ESR 41 mm/hr (0-15) H 09/04/22 14:00 D-Dimer 0.99 ug/mIFEU (0-0.59) H 09/04/22 14:00 Sodium 134 mmol/L (136-145) L 09/04/22 14:00 Potassium 3.8 mmol/L (3.5-5.1) 09/04/22 14:00 Chloride 96 mmol/L (98-107) L 09/04/22 14:00 Carbon Dioxide 21 mmol/L (22-29) L 09/04/22 14:00 Anion Gap 20.8 (5-19) H 09/04/22 14:00 BUN 17 mg/dL (6-20) 09/04/22 14:00 Creatinine 0.9 mg/dL (0.5-0.9) 09/04/22 14:00 GFR Calculation 75.1 mL/min (90-130) L 09/04/22 14:00 Glucose 95 mg/dL (65-115) 09/04/22 14:00 Calculated Osmolality 279 mOsm/kg (285-295) L 09/04/22 14:00 Lactic Acid 1.6 mmol/L (0.5-2.2) 09/04/22 16:25 Lactate 3.5 mmol/L (0.5-2.2) H 09/04/22 14:00 Calcium 8.8 mg/dL (8.5-10.5) 09/04/22 14:00 Magnesium 1.6 mg/dL (1.7-2.3) L 09/04/22 14:00 Ferritin 124 ng/mL (15-150) 09/04/22 14:00 Total Bilirubin 1.0 mg/dL (0.15-1.2) 09/04/22 14:00 AST 23 U/L (0-32) 09/04/22 14:00 ALT 18 U/L (0-33) 09/04/22 14:00 Alkaline Phosphatase 91 U/L (35-105) 09/04/22 14:00 C-Reactive Protein 155.4 mg/L (0.0-4.9) H 09/04/22 14:00 Total Protein 7.4 g/dL (6.6-8.7) 09/04/22 14:00 Albumin 3.7 g/dL (3.5-5.2) 09/04/22 14:00 Globulin 3.7 g/dL (1.3-4.6) 09/04/22 14:00 Lipase 18 U/L (13-60) 09/04/22 14:00 Procalcitonin 2.85 ng/mL (0-0.5) H 09/04/22 14:00 TSH 1.16 uIU/mL (0.27-4.20) 09/04/22 14:00 TSH 1.19 uIU/mL (0.27-4.20) 09/04/22 14:00 HCG, Qual Negative (Negative) 09/04/22 14:00 Random Cortisol 30.19 ug/dL (2.47-19.5) H 09/04/22 14:00 Urine Color Yellow (Yellow) 09/04/22 15:20 Urine Appearance Clear (CLEAR) 09/04/22 15:20 Urine pH 5 (5-7) 09/04/22 15:20 Ur Specific [place] 1.015 (1.005-1.030) 09/04/22 15:20 Urine Protein Neg (Negative) 09/04/22 15:20 Urine Glucose (UA) Norm (Normal) 09/04/22 15:20 Urine Ketones 1+ (Negative) H 09/04/22 15:20 Urine Blood Neg (Negative) 09/04/22 15:20 Urine Nitrate Negative (Negative) 09/04/22 15:20 Urine Bilirubin Neg (Negative) 09/04/22 15:20 Urine Urobilinogen Norm mg/dL (Negative) 09/04/22 15:20 Ur Leukocyte Esterase 2+ (Negative) H 09/04/22 15:20 Urine RBC 0-4 /hpf (0-2) H 09/04/22 15:20 Urine WBC 55-80 /hpf (0-5) H 09/04/22 15:20 Ur Squamous Epith Cells 10-15 /hpf (0-5) H 09/04/22 15:20 Amorphous Sediment Not Reportable 09/04/22 15:20 Urine Bacteria Trace /hpf (NONE) 09/04/22 15:20 Urine Mucus Trace /hpf 09/04/22 15:20 Urine Opiates Screen Negative ng/mL (Negative) 09/04/22 15:20 Ur Barbiturates Screen Negative ng/mL (Negative) 09/04/22 15:20 Ur Phencyclidine Scrn Negative ng/mL (Negative) 09/04/22 15:20 Ur Amphetamines Screen Negative ng/mL (Negative) 09/04/22 15:20 U Benzodiazepines Scrn Negative ng/mL (Negative) 09/04/22 15:20 Urine Cocaine Screen Negative ng/mL (Negative) 09/04/22 15:20 U Marijuana (THC) Screen Negative ng/mL (Negative) 09/04/22 15:20 Hepatitis A IgM Ab Non-reactive (Nonreactive) 09/04/22 14:00 Hep Bs Antigen Non-reactive (Nonreactive) 09/04/22 14:00 Hep B Core IgM Ab Non-reactive (Nonreactive) 09/04/22 14:00 Hepatitis C Antibody Non-reactive (Nonreactive) 09/04/22 14:00 HIV 1&2 Ab & HIV 1 Ag Non-reactive (Non-Reactiv) 09/04/22 14:00 HIV 1&2 Antibody Non-reactive (Non-Reactiv) 09/04/22 14:00 Influenza Type A Ag negative (Negative) 09/04/22 14:11 Influenza Type B Ag negative (Negative) 09/04/22 14:11 SARS-CoV-2 Ag (Rapid) negative (Negative) 09/04/22 14:11 Critical Care Time Critical Care Time: Critical Care Time: Yes Total Critical Care Time: 55 Attestation: Due to a high probability of clinically significant, possibly life threatening deterioration, the patient required my highest level of attention and preparedness to intervene emergently and I personally spent this critical care time directly and personally managing the patient. This critical care time included obtaining a history; examining the patient; pulse oximetry; ordering and review of laboratory and imaging studies; arranging urgent treatment with development of a management plan; evaluation of patient's response to treatment; frequent reassessment; and, discussions with other providers as applicable. It was exclusive of separately billable procedures. Primary system involved is infectious disease. Discharge Plan Discharge Patient Disposition: Admitted As Inpatient Admit Provider: Gregory Cardenas Clinical Impression: Severe sepsis Condition: Stable Discharge Diet: Regular Discharge Activity: Resume usual activity Coding Level of Care Code ED Product/Device Technologist for Cristian Sutton
--- NOTE | 2022-09-04 14:01 | XRR_ITS ---
PROCEDURE INFORMATION: Exam: XR Chest Exam date and time: 09/04/2022 2:30 PM Age: 27 years old Clinical indication: Shortness of breath; Additional info: Svt, SOB TECHNIQUE: Imaging protocol: Radiologic exam of the chest. Views: 1 view. COMPARISON: CR XR KUB [id number] 03/24/2022 5:37 PM FINDINGS: Lungs: Unremarkable. No consolidation. Pleural spaces: Unremarkable. No pleural effusion. No pneumothorax. Heart/Mediastinum: Unremarkable. No cardiomegaly. Bones/joints: Unremarkable. XR/XR chest 1V portable [id number] IMPRESSION: No acute findings.
--- NOTE | 2022-09-04 14:05 | ECG_ITS ---
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 Measurements Intervals [place] Rate: 148 P: 65 AR: 125 QRS: 66 QRSD: 66 T: 45 QT: 324 QTc: 510 Interpretive Statements SINUS TACHYCARDIA, POSSIBLE ATRIAL FLUTTER NONSPECIFIC T-WAVE ABNORMALITY ABNORMAL RHYTHM ECG No previous ECG available for comparison Electronically Signed On 09-04-2022 18:18:52 LOCAL GOVERNMENT LEGISLATOR by Brian Luna M.D. [id number]
[2022-09-04] MEDS: sodium chloride 0.9% 1,000 ML 999 ML IV ×2 (14:15→14:29)
[2022-09-04 14:27] LABS: Basophils # 0.1 10^3/uL (0.0-0.1); Basophils % 0.3 %; Eosinophils # 0.3 10^3/uL (0.0-0.8); Eosinophils % 1.2 %; Hematocrit 43.3 % (37.0-47.0); Hemoglobin 14.5 g/dL (11.5-15.3); Lymphocytes # 0.9 10^3/uL (0.8-4.8); Lymphocytes % 3.1 %; Mean Corpuscular HGB Conc 33.5 g/dL (30.0-36.0); Mean Corpuscular Hemoglobin 30.3 pg (28.0-34.0); Mean Corpuscular Volume 90.4 fl (81-99); Mean Platelet Volume 9.3 fL (7.4-10.4); Monocytes # 0.2 10^3/uL (0.2-0.9); Monocytes % 0.7 %; Neutrophils # 27.49 10^3/uL (1.8-7.7); Neutrophils % 93.6 %; Nucleated Red Blood Cells % 0 %; Platelet Count 425 10^3/cmm (130-400); Red Blood Count 4.79 10^6/uL (4.1-5.3); Red Cell Distribution Width 12.3 % (12.1-15.1); White Blood Count 29.4 10^3/uL (4.0-10.0)
--- NOTE | 2022-09-04 14:27 | PC.PHAR ---
pt states she takes care of her own medications-nahid marion ordered mebendazole 100mg to be in 09/05/22 rx written 09/04/22-
[2022-09-04 14:36] LABS: Lactate (Lactic Acid level) 3.5 mmol/L (0.5-2.2)
[2022-09-04 14:37] LABS: HCG, Serum Qual Negative (Negative)
[2022-09-04 14:39] LABS: Influenza A by IFA negative (Negative); Influenza B by IFA negative (Negative); SARS Covid-2 Antigen negative (Negative)
[2022-09-04 14:46] LABS: Procalcitonin 2.85 ng/mL (0-0.5); Thyroid Stimulating Hormone 1.19 uIU/mL (0.27-4.20)
[2022-09-04] MEDS: piperacillin-tazobactam 3.375 GM in sodium chloride 0.9% (plus) 50 ML IV (14:56)
[2022-09-04 14:57] LABS: Alanine Aminotransferase 18 U/L (0-33); Albumin Level 3.7 g/dL (3.5-5.2); Alkaline Phosphatase 91 U/L (35-105); Anion Gap 20.8 (5-19); Aspartate Amino Transferase 23 U/L (0-32); Blood Urea Nitrogen 17 mg/dL (6-20); C Reactive Protein 155.4 mg/L (0.0-4.9); Calcium 8.8 mg/dL (8.5-10.5); Carbon Dioxide 21 mmol/L (22-29); Chloride 96 mmol/L (98-107); Globulin 3.7 g/dL (1.3-4.6); Glomerular Filtration Rate 75.1 mL/min (90-130); Glucose 95 mg/dL (65-115); Magnesium 1.6 mg/dL (1.7-2.3); Osmolality Calculated 279 mOsm/kg (285-295); Potassium 3.8 mmol/L (3.5-5.1); Sodium 134 mmol/L (136-145); Total Protein 7.4 g/dL (6.6-8.7)
[2022-09-04] MEDS: vancomycin 1,000 MG in sodium chloride 0.9% 250 ML 250 MG IV (14:59)
[2022-09-04] MEDS: magnesium sulfate premix 4 GM/100 ML PREMIX IV (15:46)
[2022-09-04 16:12] LABS: Add Urine Microscopic? YES; Bilirubin Urine Neg (Negative); Blood Urine Neg (Negative); Glucose Urine UA Norm (Normal); Ketones Urine 1+ (Negative); Leukocyte Esterase Urine 2+ (Negative); Nitrate Urine Negative (Negative); Protein Urine Neg (Negative); Specific Gravity, Urine 1.015 (1.005-1.030); Urine Appearance Clear (CLEAR); Urine Color Yellow (Yellow); Urobilinogen Urine Norm (Negative); pH Urine 5 (5-7)
[2022-09-04 16:13] LABS: Add Urine Culture? No; Bacteria Urine TRACE /hpf; Mucus Urine TRACE /hpf; RBC Urine 0-4 /hpf (0-2); WBC Urine 55-80 /hpf (0-5)
--- NOTE | 2022-09-04 16:16 | CTR_ITS ---
PROCEDURE INFORMATION: Exam: CT Chest With Contrast; Diagnostic Exam date and time: 09/04/2022 4:38 PM Age: 27 years old Clinical indication: Fever and nausea and vomiting; Fever and shortness of breath; Additional info: Sirs, SOB, nausea, vom TECHNIQUE: Imaging protocol: Diagnostic computed tomography of the chest with contrast. Radiation optimization: All CT scans at this facility use at least one of these dose optimization techniques: automated exposure control; mA and/or kV adjustment per patient size (includes targeted exams where dose is matched to clinical indication); or iterative reconstruction. Contrast material: OMNI 350; Contrast volume: 85 ml; Contrast route: INTRAVENOUS (IV); REPORTING DATA: Count of CT and Cardiac NM exams in prior 12 months: This patient has received [address] and 0 known cardiac nuclear medicine studies in the 12 months prior to the current study. COMPARISON: CR XR chest 1V portable [id number] 09/04/2022 2:30 PM RADIATION DOSE METRICS: Total DLP (mGy-cm): 429.73 FINDINGS: Lungs: 5 mm right lower lobe nodule. 5 mm left lower lobe nodule. The lungs are otherwise clear. No consolidation. Pleural spaces: Unremarkable. No pneumothorax. No pleural effusion. Heart: Unremarkable. No cardiomegaly. No pericardial effusion. Lymph nodes: Unremarkable. No enlarged lymph nodes. Vasculature: Unremarkable. No aortic aneurysm. Bones/joints: Unremarkable. No acute fracture. Soft tissues: Unremarkable. in this age group. (Reference: Josi) References: Josi Weber et al. Guidelines for Management of Incidental Pulmonary Nodules Detected on CT Images: From the Fleischner Society 2017. Radiology. 2017;284(1):228-243. PROCEDURE INFORMATION: Exam: CT Abdomen And Pelvis With Contrast Exam date and time: 09/04/2022 4:38 PM Age: 27 years old Clinical indication: Fever and nausea and vomiting; Fever and shortness of breath; Additional info: Sirs, SOB, nausea, vom TECHNIQUE: Imaging protocol: Computed tomography of the abdomen and pelvis with contrast. Radiation optimization: All CT scans at this facility use at least one of these dose optimization techniques: automated exposure control; mA and/or kV adjustment per patient size (includes targeted exams where dose is matched to clinical indication); or iterative reconstruction. Contrast material: OMNI 350; Contrast volume: 85 ml; Contrast route: INTRAVENOUS (IV); REPORTING DATA: Count of CT and Cardiac NM exams in prior 12 months: This patient has received [address] and 0 known cardiac nuclear medicine studies in the 12 months prior to the current study. COMPARISON: CR XR KUB [id number] 03/24/2022 5:37 PM RADIATION DOSE METRICS: Total DLP (mGy-cm): 429.73 FINDINGS: Liver: Normal. No mass. Gallbladder and bile ducts: Normal. No calcified stones. No ductal dilation. Pancreas: Normal. No ductal dilation. Spleen: Normal. No splenomegaly. Adrenal glands: Normal. No mass. Kidneys and ureters: Hypodensities in both kidneys are too small to characterize but are most likely cysts. No follow-up imaging is recommended. Otherwise unremarkable. No calculus or hydronephrosis. Stomach and bowel: Unremarkable. No obstruction. No mucosal thickening. Appendix: The appendix is not visualized. No secondary signs of appendicitis. Intraperitoneal space: Unremarkable. No free air. No significant fluid collection. Vasculature: Unremarkable. No abdominal aortic aneurysm. Lymph nodes: Unremarkable. No enlarged lymph nodes. Urinary bladder: Unremarkable as visualized. Reproductive: Unremarkable as visualized. Bones/joints: Unremarkable. No acute fracture. Soft tissues: Unremarkable. CT/CT chest abdpel w/*[id number] IMPRESSION: 1. No acute pulmonary findings. 2. 5 mm pulmonary nodules. If the patient does not have known cancer, follow up should be based on clinical information because of the low risk of cancer IMPRESSION: 1. No acute findings. COMMENTS: Consistent with the [place] [employer]'s Incidental Findings Committee white paper (J Am Laura Radiol 2018): Any incidental renal lesion less than 1 cm or classified as too small to characterize, or any incidental cystic renal lesion characterized as simple-appearing, is likely benign. No follow-up imaging is recommended for these lesions per consensus recommendations based on imaging criteria.
[2022-09-04] MEDS: metoprolol tartrate 1 mg/1 mL SDV 5 mL 2.5 MG IVP (16:47)
[2022-09-04] MEDS: iohexol 350 mg/mL 500 mL Btl (per mL) IV (16:50)
[2022-09-04 16:59] LABS: Lactic Sepsis W/Reflex 1.6 mmol/L (0.5-2.2)
[2022-09-04] MEDS: ondansetron 2 mg/ML SDV 2 mL 4 MG IVP (17:59)
--- NOTE | 2022-09-04 18:38 | ECG_ITS ---
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 Measurements Intervals [place] Rate: 135 P: 42 [place]: 149 QRS: 59 QRSD: 82 T: 18 QT: 297 QTc: 445 Interpretive Statements SINUS TACHYCARDIA LOW QRS VOLTAGE IN PRECORDIAL LEADS [QRS DEFLECTION < 1.0 mV IN CHEST LEADS] POSSIBLE RIGHT VENTRICULAR CONDUCTION DELAY [RSR (QR) IN V1/V2] NONSPECIFIC T-WAVE ABNORMALITY ABNORMAL RHYTHM ECG Compared to ECG 09/04/2022 14:05:49 Low QRS voltage now present T-wave abnormality still present Electronically Signed On 09-05-2022 15:03:43 EMERGENCY DETAIL DRIVER by Brian Luna M.D. [email or web address] [email or web address]/OM/[id number]
--- NOTE | 2022-09-04 18:40 | CTR_ITS ---
PROCEDURE INFORMATION: Exam: CT Head Without Contrast Exam date and time: 09/04/2022 7:10 PM Age: 27 years old Clinical indication: Abnormal findings; Abnormal lab test; Altered mental status/memory loss and other: N/v; Patient HX: Severe lethargy with n/v. Wbc of 30k. TECHNIQUE: Imaging protocol: Computed tomography of the head without contrast. Radiation optimization: All CT scans at this facility use at least one of these dose optimization techniques: automated exposure control; mA and/or kV adjustment per patient size (includes targeted exams where dose is matched to clinical indication); or iterative reconstruction. REPORTING DATA: Count of CT and Cardiac NM exams in prior 12 months: This patient has received 2 known CTs and 0 known cardiac nuclear medicine studies in the 12 months prior to the current study. COMPARISON: No relevant prior studies available. RADIATION DOSE METRICS: Total DLP (mGy-cm): 981.38 FINDINGS: Brain: Normal. No hemorrhage. Unremarkable white matter. No mass effect. Cerebral ventricles: No ventriculomegaly. Paranasal sinuses: Mucosal thickening in the paranasal sinuses. Small air-fluid level in the left maxillary sinus. Mastoid air cells: Visualized mastoid air cells are well aerated. Bones/joints: Unremarkable. No acute fracture. Soft tissues: Unremarkable. CT/CT head wo con* [id number] IMPRESSION: 1. No acute intracranial abnormality. 2. Inflammatory changes of the paranasal sinuses.
--- NOTE | 2022-09-04 18:41 | P.HP_ITS ---
Providers/Chief Complaint Admitting Physician: Gregory Cardenas MD Primary Care Provider: Luis Brown MD Chief Complaint: fever, n/v History of Present Illness Rebekah Wagner is a 27 year old female , history of tachycardia, history of COVID-19, history of leukocytosis is history of infectious mononucleosis, who presents to [facility] due to fatigue, malaise, fevers, nausea, vomiting, diffuse body aches since Saturday night. Patient tells me that she was doing well, she works in the [employer] in [place], she has 3 kids the youngest being 1-year-old, no sick contacts known at home, her works at a bank, he is not sick she was doing well over the weekend, she went to work on Saturday, she started to feel unwell in the evening time and when she went home she felt quite sick. She had fatigue, malaise, diffuse body aches, fevers, chills, nausea, vomiting, poor appetite. Throughout the next 24 hours, her symptoms worsen, she remained in bed due to feeling ill. No recent travel, no known sick contacts, no history of tick bites, she did have COVID twice, but no recent history of COVID-19, she had infectious mononucleosis for which she saw infectious disease, due to persistent shortness of breath and fatigue. She also had complaints of tachycardia she had a event monitor ordered that showed sinus tachycardia, heart rates as high as 160. She sees cardiology for her tachycardia she is on metoprolol. She denies any drug use, no IV drug use, she does not drink alcohol. She denies any headache, no blurry vision, she does hav e nausea vomiting. She points to her neck she tells me that everything from the neck down hurts her she hurts all over. She does report neck pain, neck pain with range of motion, but her arms hurt or her chest hurts her her abdomen hurts her, her back hurts her her legs hurt her. No recent falls, recent injuries. She has had an appendectomy. She is a bit tender in the right upper quadrant, and a bit nauseous she still has her gallbladder. No diarrhea. No bloody or black stools. Denies any dysuria she has had UTIs in the past, no history of kidney stones, no history of pyelonephritis. She denies being . Denies a history of STDs, no vaginal discharge. Currently alert oriented x3, no facial droop no slurring of words, no focal weakness, no paresthesias, Review of Systems Const: Reports: fever(s), chills, body aches, fatigue and malaise Eyes: Denies: change in vision ENMT: Denies: throat pain, hoarseness, mouth pain, nasal discharge or sinus pain Card: Reports: palpitations, pre-syncope and orthopnea; Denies: chest pain, syncope or dyspnea on exertion Resp: Reports: dyspnea; Denies: productive cough, non-productive cough or hemoptysis GI: Reports: abdominal pain, nausea and vomiting; Denies: hematemesis, coffee ground emesis, dysphagia, diarrhea, constipation, rectal pain or hematochezia : Reports: flank pain; Denies: difficulty voiding, dysuria, urinary frequency, urinary urgency, genital pruritis, vaginal odor, vaginal bleeding, vaginal discharge or pelvic pain Musc: Reports: neck pain, back pain, extremity pain, joint pain and muscle weakness Skin/Breast: Denies: rash Neuro: Denies: headache(s), numbness in extremities, weakness in extremities, difficulty walking, dizziness, confusion or seizure-like activity Endo: Denies: polyuria or polydipsia Aftab/Lymph: Reports: enlarged lymph nodes; Denies: easy bruising or easy bleeding Medications/Allergies Home Medications Medication Instructions Recorded Confirmed Last Taken Type metoprolol tartrate 25 mg tablet 25 mg PO BID 30 days #60 tabs 05/29/22 09/04/22 09/04/22 07:15 Rx albuterol sulfate 90 mcg/actuation 1 puff inhalation QID PRN 09/04/22 09/04/22 Unknown History aerosol inhaler shortness of breath or wheezing cefdinir 300 mg capsule 300 mg PO BID 10 days #20 caps 09/04/22 09/04/22 09/04/22 12:00 Rx ibuprofen 200 mg tablet 800 mg PO Q8H PRN Pain 09/04/22 09/04/22 09/04/22 History mebendazole 100 mg chewable tablet See Rx Instructions .Route 09/04/22 09/04/22 Unknown History .COMPLEX enterobiasis ondansetron 4 mg disintegrating 4 mg PO Q8H PRN nausea and 09/04/22 09/04/22 09/04/22 12:00 Rx tablet vomiting #10 tabs Allergies Allergy/AdvReac Type Severity Reaction Status Date / Time No Known Allergies Allergy Verified 09/04/22 14:23 PFSH Acute PFSH: Medical History Benign hypertension Has chronic hypertension diagnosed in 2018 and is not currently on any medication. This is managed by her primary care provider Chest discomfort No pertinent past medical history Denies diabetes, asthma, seizures, DVT/PE PCP: Dr. Brown Shortness of breath Surgical History History of appendectomy Laparoscopic procedure performed in 2011 Family History Father Hypertension CAD (coronary artery disease) Stroke CVA in 30's Mother Crohn disease Denies family history of Colon cancer Ovarian cancer Diabetes Clotting disorder Dementia Heart disease Hyperlipidemia Chronic kidney disease (CKD) Breast cancer Suicide Anesthesia complication Bleeding disorder Lung disease Cancer Uterine cancer Thyroid condition Social History Smoking and tobacco status: never smoked Alcohol intake: never Lives independently: Yes Marital status: Number of children: 3 Current occupational status: employed 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 Current gender identity: Female Vitals/I&O/Wt Last Vital Signs Temp 98.4 F 09/04/22 13:50 Pulse 153 H 09/04/22 15:55 Resp 18 09/04/22 15:55 BP 90/61 09/04/22 15:55 Pulse Ox 96 09/04/22 15:55 O2 Del Method 09/04/22 15:55 09/04/22 09/04/22 09/04/22 06:59 14:59 22:59 Intake Total 1000 / 1000 1406.731 / 2406.731 Balance 1000 / 1000 1406.731 / 2406.731 Weight last 48 hrs Weight 42.184 kg Physical Exam Const: COMMON NORMALS: no acute distress and patient oriented x3 OTHER: Ill-appearing HENMT: COMMON NORMALS: normocephalic HEAD & SCALP: normocephalic Eye: COMMON NORMALS: Equal, round and reactive pupils present and EOMs intact bilaterally Neck/C-Spine: COMMON NORMALS: no JVD OTHER: Kernig sign negative, Brudzinski sign negative, but does have neck pain with range of motion, no stiffness per se she has good range of motion but has complaints of pain with most range of motion Lymph: OTHER: Has cervical lymphadenopathy Resp: COMMON NORMALS: normal respiratory effort, No retractions, No use of accessory muscles and clear to auscultation bilaterally AUSCULTATION: clear to auscultation bilaterally Cardio: COMMON NORMALS: no JVD, regular rhythm, S1 normal heart sound present and S2 normal heart sound present RATE: tachycardic RHYTHM: regular rhythm HEART SOUNDS: S1 normal heart sound present and S2 normal heart sound present OTHER: Diminished peripheral pulses, DP PT pulses diminished, but palpable, pale appearing GI: COMMON NORMALS: Normal to inspection, nondistended, normoactive bowel sounds present, Soft to palpation, non-tender, No hepatosplenomegaly present, no masses and no bruits PALPATION: Yes Soft to palpation and Yes No hepatosplenomegaly present : OTHER: She has bilateral CVA tenderness Back/Pelvis: COMMON NORMALS: thoracic and lumbar spine normal to inspection and no thoracic nor lumbar tenderness OTHER: Bilateral CVA tenderness Extremity: COMMON NORMALS: no calf tenderness and no pedal edema Neuro: COMMON NORMALS: patient oriented x3, CN's II-XII intact bilaterally, moves all extremities, no focal motor deficits and no sensory deficits noted Psych: COMMON NORMALS: mental status grossly normal Sepsis: Is patient septic: Yes Focused sepsis exam performed: Yes Focused sepsis exam: DP PT pulses diminished bilaterally, capillary fill greater than 3 seconds, pale extremities Data 09/04/22 14:00 09/04/22 14:00 Micro: Microbiology 09/04/22 14:21 Blood Culture - Preliminary Blood SPECIMEN COLLECTED 09/04/22 14:15 Blood Culture - Preliminary Blood SPECIMEN COLLECTED A&P Assessment and plan (1) Septic shock: (2) Pyelonephritis: (3) Severe sepsis: (4) Sinus tachycardia: (5) Hypomagnesemia: Plan Fevers, fatigue, malaise, diffuse muscle aches, nausea, vomiting -Etiology unclear,? possibly second to pyelonephritis, possible meningitis -Could be possible pyelonephritis she has bilateral CVA tenderness, no radiographic evidence of obstructive uropathy, or renal abscess, I discussed this with Krys PRYOR, also spoke to urology -Her urine does have a fair amount of squamous cells, but leukocyte esterase is positive, WBCs are 55-80, 0-4 RBCs, creatinine 0.9 -Possible meningitis -She does have neck pain, but no neck stiffness, Kernig sign negative Brudzinski sign negative, no blurry vision -Nonetheless ER physician will go ahead and perform LP -On abdominal exam she does have some right upper quadrant tenderness although her LFTs are within normal limits, alk phos is within normal limits, will obtain right upper quadrant ultrasound -Lactate is 3.5 -pH is 7.48, bicarb 21 -WBC 29.4 -Pro-Tej 2.85, CRP 155 -COVID negative, flu negative -He is requiring 2 of Levophed has received sepsis bolus, his maps hovering around 65 -In the ER she is afebrile -She does have sinus tachycardia heart rates as high as 170 she received 1 dose of metoprolol Plan -Admit to ICU for concerns for septic shock -Broad-spectrum antibiotic therapy vancomycin, meropenem, doxycycline for atypical infection possible tickborne illness -We will follow urine cultures, blood cultures, sputum cultures -Viral studies -We will follow LP studies, I started her on Decadron -Levophed can maintain MAP in 65 -LR in the 150 cc an hour -Decadron hopefully will help with stress dosing for steroids, for persistent hypotension -Monitor mentation, monitor urine output, monitor clinical status -Neurochecks, aspiration precautions,CT head -RUQ us -DIC panel, D-dimer, serial troponins -Full code -Lovenox for DVT prophylaxis Attestations Medical Necessity Statement*: Patient requires hospitalization, ICU, for septic shock, severe sepsis, pyelonephritis, possible meningitis Coding Level of Care Code Critical Care >/= 30 minutes Critical care time (in minutes): 60 The high probability of a clinically significant, sudden or life threatening deterioration, as referenced in this documentation, required my full and direct attention, intervention and personal management. The critical care time shown is in addition to time spent performing any reported separately billable procedures and includes the following: [x] Data and vital sign review and interpretation [x ] Patient assessment, examination and intervention [x] Medication orders and management [x] Patient/Family updates as able [x] Care Coordination and Documentation. Diagnoses Septic shock A41.9; R65.21 Pyelonephritis N12 Severe sepsis A41.9; R65.20 Sinus tachycardia R00.0 Hypomagnesemia E83.42
[2022-09-04 18:48] LABS: ABG PCO2 23.8 mmHg (35-45); ABG PH Result 7.48 (7.35-7.45); Arterial Blood Gas Hematocrit 38.3 % (37-47); Base Excess ABG -4.3 mmol/L (-2.0-2.0); Blood Gas Allen Test Pos; Blood Gas Operator Identificat CAK; Blood Gas Sample Site Radial, left; Blood Gas Sample Type Arterial; HCO3 ABG 17.6 mmol/L (22-26); Oxygen Device ROOM AIR
[2022-09-04 19:21] LABS: Amphetamines Screen Urine Negative (Negative); Barbiturates Screen Urine Negative (Negative); Benzodiazepines Screen Urine Negative (Negative); Cocaine Screen Urine Negative (Negative); Opiate Screen Urine Negative (Negative); PCP Screen Urine Negative (Negative); THC Screen Urine Negative (Negative)
[2022-09-04 19:21] LABS: Appearance CSF CLEAR (CLEAR); Color CSF COLORLESS (COLORLESS)
[2022-09-04 19:27] LABS: CSF Mononuclear # 0.002 10^3/uL (50-90); Mononuclear WBC CSF % 100 % (50-90); Polynuclear WBC CSF % 0 % (0-10); Red Blood Cell CSF 0 10^3/uL (0-0); White Blood Cell CSF 2 /uL (0-5)
[2022-09-04 19:43] LABS: Pathology Referral Yes
[2022-09-04 19:44] LABS: D Dimer 0.99 ug/mIFEU (0-0.59)
[2022-09-04 19:58] LABS: Erythrocyte Sedimentation Rate 41 mm/hr (0-15); Ferritin 124 ng/mL (15-150); Lipase 18 U/L (13-60); Thyroid Stimulating Hormone 1.16 uIU/mL (0.27-4.20)
--- NOTE | 2022-09-04 19:58 | ECG_ITS ---
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 Measurements Intervals [place] Rate: 134 P: 0 DC: 0 QRS: 60 QRSD: 76 T: 43 QT: 294 QTc: 440 Interpretive Statements Sinus tachycardia ABNORMAL RHYTHM ECG Compared to ECG 09/04/2022 18:38:30 T-wave abnormality no longer present Electronically Signed On 09-05-2022 15:11:10 FUNDRAISING COORDINATOR by Brian Luna M.D. [email or web address] memorial [email or web address] health [id number]
[2022-09-04] MEDS: lactated ringers 1,000 ML 999 ML IV (20:08)
[2022-09-04] MEDS: pantoprazole 40 mg SDV IVP (20:09)
[2022-09-04] MEDS: meropenem 1,000 MG in sodium chloride 0.9% (plus) 50 ML 100 MG IV (20:09)
--- NOTE | 2022-09-04 20:21 | US_ITS ---
WS: [id number] RIGHT UPPER QUADRANT ULTRASOUND HISTORY: sepsis, ruq pain COMPARISON: 12/26/2010. CT examination 09/04/2022 Liver: 13.0 cm in length. Normal size liver. No bile duct dilatation or mass. Portal Vein: Normal hepatopetal flow with monophasic waveform. Gallbladder: Normally distended gallbladder with no stones or wall thickening. CBD: 0.4 cm Pancreas: Normal size and echogenicity. Right kidney: 10.5 cm in length. Normal size and echogenicity. No hydronephrosis or mass. Aorta and IVC: Unremarkable abdominal aorta and IVC. No ascites. US/US gall bladder [id number] IMPRESSION: Normal RIGHT upper quadrant ultrasound.
[2022-09-04 20:24] LABS: Troponin(5th) Baseline 12 ng/L (0-10)
[2022-09-04 20:30] LABS: Cyto Order Verification No Order
[2022-09-04] MEDS: doxycycline 100 MG in sodium chloride 0.9% (plus) 100 ML IV (21:11)
[2022-09-04 21:12] LABS: Cortisol Random 30.19 ug/dL (2.47-19.5)
[2022-09-04] MEDS: dexamethasone 10 mg/mL INJ 6 MG IVP (21:12)
[2022-09-04] MEDS: lactated ringers 1,000 ML 150 ML IV (21:32)
[2022-09-04] MEDS: metoclopramide 5 mg/mL SDV 2 mL IVP (21:33)
[2022-09-04 22:09] LABS: Glucose CSF 61 mg/dL (40-70); Total Protein CSF 22 mg/dL (15-45)
[2022-09-04 22:20] LABS: Creatine Phosphokinase 277 U/L (26-192)
[2022-09-04 22:32] LABS: Hepatitis A Antibody IgM Non-Reactive (Nonreactive); Hepatitis B Core IgM Non-Reactive (Nonreactive); Hepatitis B Surface Antigen Non-Reactive (Nonreactive); Hepatitis C Virus Antibody Non-Reactive (Nonreactive)
[2022-09-04] MEDS: acetaminophen 325 mg Tablet 650 MG PO (22:34)
[2022-09-04 22:38] LABS: HIV 1 & 2 Antibody Non-Reactive (Non-Reactiv); HIV 1 & 2 Antigen Non-Reactive (Non-Reactiv)
[2022-09-05] VITALS (95 sets, daily range): BP systolic 91–122; BP diastolic 52–92; PULSE 78–125; RESP 0–29; TEMP 36.6–37.2; O2SAT 90–100
[2022-09-05 00:13] LABS: Fibrinogen 432 mg/dL (174-498); Partial Thromboplastin Time 43.2 SECONDS (23.9-36.7)
--- NOTE | 2022-09-05 00:14 | ECG_ITS ---
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 Measurements Intervals [place] Rate: 91 P: 63 NH: 156 QRS: 61 QRSD: 68 T: 30 QT: 361 QTc: 446 Interpretive Statements SINUS RHYTHM Compared to ECG 09/04/2022 19:58:58 Sinus tachycardia no longer present Electronically Signed On 09-05-2022 15:12:07 CARAMEL CANDY MAKER by Brian Luna M.D. [email or web address] Groupcommunity hospital of huntington parkLegal River/store/[id number]
[2022-09-05 00:15] LABS: INR 1.57 (0.8-1.2)
[2022-09-05 00:16] LABS: D Dimer 1.66 ug/mIFEU (0-0.59)
[2022-09-05 00:18] LABS: Troponin 5 2HR 11.87 ng/L (0-10)
[2022-09-05 00:21] LABS: Troponin 5 2HR Delta -0.13 ABS# (0-10)
[2022-09-05 00:27] LABS: Monoscreen Negative (Negative)
[2022-09-05] MEDS: sodium chloride 0.9% 500 ML 999 ML IV (00:28)
[2022-09-05 02:07] LABS: Adenovirus Not Detected (NOT DETECT); Chlamydia Pneumoniae Not Detected (NOT DETECT); Coronavirus 229E,HKU1,NL63,OC4 Not Detected (NOT DETECT); Human Metapneumovirus Not Detected (NOT DETECT); Human Rhinovirus/Enterovirus Not Detected (NOT DETECT); Influenza A Not Detected (NOT DETECT); Influenza A H1 Not Detected (NOT DETECT); Influenza A H1-2009 Not Detected (NOT DETECT); Influenza A H3 Not Detected (NOT DETECT); Influenza B Not Detected (NOT DETECT); Mycoplasma Pneumoniae Not Detected (NOT DETECT); Parainfluenza Virus Type 1 Not Detected (NOT DETECT); Parainfluenza Virus Type 2 Not Detected (NOT DETECT); Parainfluenza Virus Type 3 Not Detected (NOT DETECT); Parainfluenza Virus Type 4 Not Detected (NOT DETECT); Respiratory Syncytial Virus A Not Detected (NOT DETECT); Respiratory Syncytial Virus B Not Detected (NOT DETECT); SARS-COV-2 Not Detected (NOT DETECT)
[2022-09-05] MEDS: lactated ringers 1,000 ML 150 ML IV ×3 (03:06→18:17)
[2022-09-05] MEDS: dexamethasone 10 mg/mL INJ 6 MG IVP (03:06)
[2022-09-05] MEDS: meropenem 1,000 MG in sodium chloride 0.9% (plus) 50 ML 100 MG IV ×3 (03:08→20:02)
[2022-09-05 03:34] LABS: Hematocrit 33.8 % (37.0-47.0); Mean Corpuscular HGB Conc 32.5 g/dL (30.0-36.0); Mean Corpuscular Hemoglobin 30.1 pg (28.0-34.0); Mean Corpuscular Volume 92.3 fl (81-99); Mean Platelet Volume 9.6 fL (7.4-10.4); Platelet Count 332 10^3/cmm (130-400); Red Blood Count 3.66 10^6/uL (4.1-5.3); Red Cell Distribution Width 12.6 % (12.1-15.1)
[2022-09-05 03:52] LABS: Troponin 5 6HR 9.29 ng/L (0-10); White Blood Count 36.7 10^3/uL (4.0-10.0)
[2022-09-05 03:53] LABS: Slide Review Slide Review Perform
[2022-09-05 03:57] LABS: Lactic Sepsis W/Reflex 1.4 mmol/L (0.5-2.2)
[2022-09-05 03:58] LABS: Absolute Eosinophils 0.3 10^3/cmm (0.0-0.7); Absolute Segmented Neutrophil 30.5 10/cmm (1.6-7.1); Band Neutrophils Absolute 5.1 10^3/cmm (0.0-1.2); Eosinophils 1 %; Lymphocytes 1 %; Lymphocytes Absolute 0.4 10^3/cmm (1.2-3.4); Monocytes Absolute 0.4 10^3/cmm (0.1-0.6); Segmented Neutrophils 83 %; Total Cells Counted 100 (0-100)
[2022-09-05 03:59] LABS: Absolute Neutrophil 35.6 10^3/cmm (1.4-6.5); Platelet Estimate Normal (Normal); Toxic Granulation 1+
[2022-09-05 04:01] LABS: Procalcitonin 5.71 ng/mL (0-0.5)
[2022-09-05 04:13] LABS: Alanine Aminotransferase 16 U/L (0-33); Albumin Level 2.7 g/dL (3.5-5.2); Alkaline Phosphatase 128 U/L (35-105); Anion Gap 16.7 (5-19); Aspartate Amino Transferase 31 U/L (0-32); Blood Urea Nitrogen 10 mg/dL (6-20); Calcium 7.1 mg/dL (8.5-10.5); Carbon Dioxide 18 mmol/L (22-29); Chloride 109 mmol/L (98-107); Globulin 2.5 g/dL (1.3-4.6); Glucose 135 mg/dL (65-115); Magnesium 2.5 mg/dL (1.7-2.3); Osmolality Calculated 291 mOsm/kg (285-295); Phosphorus 2.7 mg/dL (2.5-4.5); Potassium 3.7 mmol/L (3.5-5.1); Sodium 140 mmol/L (136-145); Total Bilirubin 0.9 mg/dL (0.15-1.2); Total Protein 5.2 g/dL (6.6-8.7)
[2022-09-05 04:35] LABS: Troponin 5 6HR Delta -2.58 ng/L (0-12)
--- NOTE | 2022-09-05 06:32 | PC.NURSE ---
Trejo Cath placed on admit to ICU as ordered. Patient complaint of discomfort from trejo and requested it's removal. Trejo removed without complication. Physician notified.
[2022-09-05 09:00] LABS: LAB Peripheral Smear Sent for Review
[2022-09-05] MEDS: enoxaparin 40 mg/0.4 mL Syringe SUBCUT (09:11)
[2022-09-05] MEDS: doxycycline 100 MG in sodium chloride 0.9% (plus) 100 ML IV ×2 (09:11→21:59)
[2022-09-05] MEDS: vancomycin 750 MG in sodium chloride 0.9% 250 ML 250 MG IV (09:14)
--- NOTE | 2022-09-05 12:01 | PC.NURSE ---
Pt stated her menstrual cycle was last month. She does use tampons. She states they are in around 1.5 hours.
--- NOTE | 2022-09-05 14:27 | P.PN_ITS ---
Subjective Subjective: Patient was seen this morning, she tells me that she feels a lot better, she still on 6 of Levophed, no lightheadedness, dizziness, she is quite hungry today she tells me, no abdominal pain, no flank pain, no fevers, no chills, she denies having a tampon in place, but does use them, Vitals/I&O/Wt Last Vital Signs Temp 98.0 F 09/05/22 08:00 Pulse 105 H 09/05/22 12:00 Resp 23 H 09/05/22 12:00 BP 122/86 09/05/22 12:00 Pulse Ox 99 09/05/22 10:45 O2 Del Method 09/05/22 10:30 09/04/22 09/05/22 09/05/22 22:59 06:59 14:59 Intake Total 2735.090 / 3735.090 1553.910 / 5289.000 1551.899 / 1551.899 Output Total 200 / 200 1350 / 1550 500 / 500 Balance 2535.090 / 3535.090 203.910 / 3739.000 1051.899 / 1051.899 Weight last 48 hrs Weight 42.184 kg Physical Exam Const: COMMON NORMALS: no acute distress and patient oriented x3 Resp: COMMON NORMALS: normal respiratory effort, No retractions, No use of accessory muscles and clear to auscultation bilaterally AUSCULTATION: clear to auscultation bilaterally Cardio: COMMON NORMALS: regular rate, regular rhythm, S1 normal heart sound present and S2 normal heart sound present RATE: regular rate RHYTHM: regular rhythm HEART SOUNDS: S1 normal heart sound present and S2 normal heart sound present GI: COMMON NORMALS: Normal to inspection, nondistended, normoactive bowel sounds present and non-tender Extremity: COMMON NORMALS: no pedal edema Neuro: COMMON NORMALS: patient oriented x3 Psych: COMMON NORMALS: mental status grossly normal Urinary Catheter Management: [place]illa: Cath Placed During This Visit: yes, but has since been removed by the nurse Reason for Continuing Indwelling Catheter: Decision to DC Catheter Urinary Catheter Date of Insertion: 09/04/22 Urinary Catheter Time of Insertion: 20:00 Date Urinary Catheter Removed: 09/04/22 Time Urinary Catheter Discontinued: 20:30 Data 09/05/22 02:16 09/05/22 02:16 Micro: Microbiology 09/04/22 14:21 Blood Culture - Preliminary Blood NEGATIVE TO DATE 09/04/22 14:15 Blood Culture - Preliminary Blood NEGATIVE TO DATE 09/04/22 18:55 Gram Stain - Final Cerebrospinal Fluid CSF Culture - Preliminary 09/04/22 17:06 Urine Culture - Preliminary Urine,Clean Catch Coag positive Staphylococcus 09/04/22 22:50 Gram Stain - Final Sputum - Expectorated Sputum A&P Assessment and plan (1) Septic shock: (2) Pyelonephritis: (3) Severe sepsis: (4) Sinus tachycardia: (5) Hypomagnesemia: (6) Urinary tract infection: Plan Fevers, fatigue, malaise, diffuse muscle aches, nausea, vomiting -Etiology likely sec to UTI, pyelonephritis -Could be possible pyelonephritis she has bilateral CVA tenderness, no radiographic evidence of obstructive uropathy, or renal abscess, I discussed t his with Krys PRYOR, also spoke to urology -Her urine does have a fair amount of squamous cells, but leukocyte esterase is positive, WBCs are 55-80, 0-4 RBCs, creatinine 0.9, urine cultures coagulase positive Staphylococcus -Unlikely meningitis, as Gram stain negative, culture negative, CF studies unrem arkable -This morning she denies neck pain, but no neck stiffness, Kernig sign negative Brudzinski sign negative, no blurry vision -Right upper quadrant ultrasound within normal notes -Lactate is 1.4 -pH is 7.48, bicarb 21 -WBC 36.7, did receive Decadron -Pro-Tej 4.71, CRP 155 -COVID negative, flu negative -She is requiring 6 of Levophed has received sepsis bolus, received IV fluids, his maps hovering around 65 -Currently is a afebrile -She does have sinus tachycardia heart rates as high as 170 she received 1 dose of metoprolol, currently tachycardia has resolved Plan -Admit to ICU for concerns for septic shock -Broad-spectrum antibiotic therapy vancomycin, meropenem, doxycycline for atypical infection possible tickborne illness -We will follow urine cultures, blood cultures, sputum cultures -Viral studies -We will follow LP studies cultures, Decadron stopped -Levophed can maintain MAP in 65 -LR in the 150 cc an hour -Monitor mentation, monitor urine output, monitor clinical status -Neurochecks, aspiration precautions -Full code -Lovenox for DVT prophylaxis Attestations Medical Necessity Statement*: Patient requires position for sepsis, septic shock, pyelonephritis, UTI Coding Level of Care Code Critical Care >/= 30 minutes Critical care time (in minutes): 40 The high probability of a clinically significant, sudden or life threatening deterioration, as referenced in this documentation, required my full and direct attention, intervention and personal management. The critical care time shown is in addition to time spent performing any reported separately billable procedures and includes the following: [x] Data and vital sign review and interpretation [x ] Patient assessment, examination and intervention [x] Medication orders and management [x] Patient/Family updates as able [x] Care Coordination and Documentation. Diagnoses Septic shock A41.9; R65.21 Pyelonephritis N12 Severe sepsis A41.9; R65.20 Sinus tachycardia R00.0 Hypomagnesemia E83.42 Urinary tract infection N39.0
[2022-09-05] MEDS: pantoprazole 40 mg SDV IVP (18:17)
--- NOTE | 2022-09-05 19:51 | PC.NURSE ---
Pt states she feels so much better this evening. She has been afebrile. BP WNL. Levophed gtt, at 6mcg/min this am, off since 1629. Her face , kelsey. around her eyes very swollen and puffy. IV fluids, LR, decreased from 150ml/hr to 50ml/hr. She reports no nausea, or pain this shift. Clear liquid diet started, she is tolerating very well. Pt gets up to BSC to void. Urine is pale yellow and clear. Bilat AC IV. Pt requested to get one out, she agreed to wait a little further out from Levophed being stopped prior to removing the right AC IV.
[2022-09-06] VITALS (11 sets, daily range): BP systolic 98–112; BP diastolic 56–81; PULSE 80–103; RESP 6–21; TEMP 36.3–36.8; O2SAT 96–99
[2022-09-06] MEDS: vancomycin 750 MG in sodium chloride 0.9% 250 ML 250 MG IV ×2 (02:03→22:26)
[2022-09-06] MEDS: meropenem 1,000 MG in sodium chloride 0.9% (plus) 50 ML 100 MG IV ×2 (03:59→16:34)
[2022-09-06 05:50] LABS: Basophils # 0.1 10^3/uL (0.0-0.1); Basophils % 0.3 %; Eosinophils # 0.2 10^3/uL (0.0-0.8); Eosinophils % 0.7 %; Hematocrit 30.2 % (37.0-47.0); Hemoglobin 9.9 g/dL (11.5-15.3); Lymphocytes # 1.3 10^3/uL (0.8-4.8); Lymphocytes % 4.1 %; Mean Corpuscular HGB Conc 32.8 g/dL (30.0-36.0); Mean Corpuscular Hemoglobin 30.1 pg (28.0-34.0); Mean Corpuscular Volume 91.8 fl (81-99); Mean Platelet Volume 9.5 fL (7.4-10.4); Monocytes # 0.9 10^3/uL (0.2-0.9); Monocytes % 2.9 %; Neutrophils # 26.59 10^3/uL (1.8-7.7); Neutrophils % 85.4 %; Nucleated Red Blood Cells % 0 %; Platelet Count 302 10^3/cmm (130-400); Red Blood Count 3.29 10^6/uL (4.1-5.3); Red Cell Distribution Width 12.9 % (12.1-15.1)
[2022-09-06 06:03] LABS: Slide Review Slide Review Perform; White Blood Count 31.1 10^3/uL (4.0-10.0)
[2022-09-06 06:07] LABS: Alanine Aminotransferase 16 U/L (0-33); Albumin Level 2.5 g/dL (3.5-5.2); Alkaline Phosphatase 67 U/L (35-105); Aspartate Amino Transferase 17 U/L (0-32); Blood Urea Nitrogen 11 mg/dL (6-20); C Reactive Protein 106.8 mg/L (0.0-4.9); Calcium 7.7 mg/dL (8.5-10.5); Carbon Dioxide 22 mmol/L (22-29); Chloride 109 mmol/L (98-107); Globulin 2.4 g/dL (1.3-4.6); Glucose 101 mg/dL (65-115); Magnesium 2.1 mg/dL (1.7-2.3); Osmolality Calculated 288 mOsm/kg (285-295); Phosphorus 1.6 mg/dL (2.5-4.5); Sodium 139 mmol/L (136-145); Total Bilirubin 0.4 mg/dL (0.15-1.2); Total Protein 4.9 g/dL (6.6-8.7)
[2022-09-06 06:12] LABS: Procalcitonin 5.19 ng/mL (0-0.5)
--- NOTE | 2022-09-06 08:53 | CT_ITS ---
WS: [email or web address] CT CERVICAL SPINE TECHNIQUE: Noncontrast CT of the cervical spine with coronal and sagittal reformatted images. CLINICAL INFORMATION: abscess/osteo COMPARISON: None. DLP: 836.[address] scans at [facility] use at least one of these dose optimization techniques: automated e xposure control; mA and/or kV adjustment per patient size (includes targeted exams where dose is matc hed to clinical indication); or iterative reconstruction. FINDINGS: Straightening with slight reversal normal cervical lordosis. Normal craniocervical articulation. Norm al C1-C2 articulation. No evidence of discitis or osteomyelitis. Spinal canal is patent. Normal parav ertebral soft tissues. No abscess or fluid collection. Normal thyroid gland. Lung apices are well aer ated. Normal visualized posterior nasopharynx. Visualized posterior nasopharynx: Normal. Prevertebral soft tissues: Normal. CT/CT cervical spin wo con* [id number] IMPRESSION: No evidence of discitis or osteomyelitis.
--- NOTE | 2022-09-06 08:53 | CT_ITS ---
WS: [email or web address] CT THORACIC SPINE TECHNIQUE: Noncontrast CT of the thoracic spine with coronal and sagittal reformatted images. CLINICAL INFORMATION: abscess/osteo COMPARISON: None. DLP: 836.[address] scans at [facility] use at least one of these dose optimization techniques: automated e xposure control; mA and/or kV adjustment per patient size (includes targeted exams where dose is matc hed to clinical indication); or iterative reconstruction. FINDINGS: Normal anatomic alignment. No acute compression. No high-grade central canal stenosis. Disc space hei ghts and vertebral body heights appear well-maintained. No acute compression fractures. Adrenal glands are normal. A few tiny 3 to 4 mm pulmonary opacities in the partially visualized lungs . Slight bibasilar atelectasis. CT/CT thoracic spin wo con* [id number] IMPRESSION: No acute thoracic spine findings.
--- NOTE | 2022-09-06 08:53 | CT_ITS ---
WS: [email or web address] CT LUMBAR SPINE TECHNIQUE: Noncontrast CT of the lumbar spine with coronal and sagittal reformatted images. CLINICAL INFORMATION: abscesss/osteo COMPARISON: None. DLP: 836.[address] scans at [facility] use at least one of these dose optimization techniques: automated e xposure control; mA and/or kV adjustment per patient size (includes targeted exams where dose is matc hed to clinical indication); or iterative reconstruction. FINDINGS: Mild lumbar curve. No acute compression. No high-grade central canal stenosis. No evidence of disciti s or osteomyelitis. Minimal annular bulging L4-L5 and L5-S1. Normal paravertebral soft tissues. Slight bibasilar atelectasis. CT/CT lumbar spine wo con* [id number] IMPRESSION: No evidence of discitis or osteomyelitis.
--- NOTE | 2022-09-06 09:06 | USCV_ITS ---
Rebekah Wagner Age: 27 Gender: F : 1995 Exam Date: 09/06/2022 10:26 Ordering Phys: Gregory Cardenas MD Technologist: Andrea Steele Exam Location: [facility] – [place] Indication: ? veg BP: 115 / 89 HR: 113 Rhythm: Sinus Technical Quality: Adequate MEASUREMENTS (Male / Female) Normal Values 2D ECHO LV Diastolic Diameter PLAX 2.6 cm 4.2 - 5.9 / 3.9 - 5.3 cm LV Systolic Diameter PLAX 2.0 cm IVS Diastolic Thickness 0.9 cm 0.6 - 1.0 / 0.6 - 0.9 cm IVS Systolic Thickness 1.3 cm LVPW Diastolic Thickness 0.8 cm 0.6 - 1.0 / 0.6 - 0.9 cm LVPW Systolic Thickness 1.3 cm LVOT Diameter 1.7 cm LV Ejection Fraction 2D Teich 38.7 % LV Ejection Fraction MOD 2C 57.2 % LV Ejection Fraction 2C AL 57.3 % LA Diameter 2.9 cm IVC Diameter 1.4 cm M-MODE Aortic Annulus Diameter 2.4 cm LA Ao Ratio MM 1.2 MV E Point Septal Separation 0.5 cm DOPPLER AV Peak Velocity 144.0 cm/s LVOT Peak Velocity 105.0 cm/s AV Area Cont Eq vti 1.6 cm squared AV Area Cont Eq pk 1.7 cm squared MV Area PHT 5.0 cm squared Mitral E to A Ratio 0.8 MV E' Velocity 60.0 cm/s Mitral E to MV E' Ratio 5.6 Mitral E to LV E' Lateral Ratio 5.3 Mitral E to LV E' Septal Ratio 5.9 TR Peak Velocity 136.0 cm/s TR Peak Gradient 7.4 mmHg TV Peak E Velocity 108.0 cm/s Right Atrial Pressure 3.0 mmHg Pulmonary Artery Systolic Pressu 10.4 mmHg RV Acceleration Time 0.1 s FINDINGS Left Ventricle Normal left ventricular size and systolic function, EF 62 %. No regional wall motion abnormalities. Right Ventricle The right ventricle is normal in size and function. Right Atrium The right atrium is normal in size. Left Atrium The left atrium is normal in size. Mitral Valve No masses or vegetations noted Aortic Valve Valve appears to be tricuspid. No masses or vegetations noted Tricuspid Valve Thickened tricuspid valve. Pulmonic Valve Not visualized well Pericardium No pericardial effusion. Aorta Normal aortic annulus size. IVC Normal inferior vena cava. CONCLUSIONS Normal left ventricular size and systolic function, EF 62 %. No regional wall motion abnormalities. Normal chamber sizes. No significant stenotic or regurgitant valvular lesions, based on color-flow Doppler examination. No intracardiac masses or vegetations noted Dr Saúl Lee MD [facility] (Electronically Signed) Final Date: 06 September 2022 20:06 S
[2022-09-06] MEDS: enoxaparin 40 mg/0.4 mL Syringe SUBCUT (09:45)
[2022-09-06] MEDS: doxycycline 100 MG in sodium chloride 0.9% (plus) 100 ML IV (09:45)
--- NOTE | 2022-09-06 11:10 | PC.NURSE ---
Transfer Note Patient transferred to med-surg room 256-1 from ICU via wheelchair. Handoff report given to WILLY Do. Patient oriented to environment and equipment. Covering service notified. Orders reviewed and will continue to monitor. Patient alert/oriented x4 on room air upon transfer. No wounds or skin issues noted at this time. All belongings transferred with patient and placed at bedside.
[2022-09-06 12:29] LABS: EBV IGG TEST >750.00 U/mL
[2022-09-06] MEDS: acetaminophen 325 mg Tablet 650 MG PO (13:04)
--- NOTE | 2022-09-06 13:46 | P.PN_ITS ---
Vitals/I&O/Wt Last Vital Signs Temp 98.1 F 09/06/22 12:00 Pulse 99 09/06/22 12:00 Resp 16 09/06/22 12:00 BP 110/76 09/06/22 12:00 Pulse Ox 99 09/06/22 12:00 O2 Del Method 09/06/22 12:00 09/05/22 09/06/22 09/06/22 22:59 06:59 14:59 Intake Total 2197.399 / 4499.298 300 / 4799.298 Output Total 500 / 1500 Balance 1697.399 / 2999.298 300 / 3299.298 Weight last 48 hrs Weight 44.906 kg Weight 42.184 kg Physical Exam Const: COMMON NORMALS: no acute distress and patient oriented x3 Resp: COMMON NORMALS: normal respiratory effort, No retractions, No use of accessory muscles and clear to auscultation bilaterally AUSCULTATION: clear to auscultation bilaterally Cardio: COMMON NORMALS: regular rate, regular rhythm, S1 normal heart sound present and S2 normal heart sound present RATE: regular rate RHYTHM: regular rhythm HEART SOUNDS: S1 normal heart sound present and S2 normal heart sound present GI: COMMON NORMALS: Normal to inspection, nondistended, normoactive bowel so unds present and non-tender Extremity: COMMON NORMALS: no pedal edema Neuro: COMMON NORMALS: patient oriented x3 Psych: COMMON NORMALS: mental status grossly normal Urinary Catheter Management: [place]: Cath Placed During This Visit: yes, but has since been removed by the nurse Reason for Continuing Indwelling Catheter: Decision to DC Catheter Urinary Catheter Date of Insertion: 09/04/22 Urinary Catheter Time of Insertion: 20:00 Date Urinary Catheter Removed: 09/04/22 Time Urinary Catheter Discontinued: 20:30 Data 09/06/22 05:34 09/06/22 05:34 Micro: Microbiology 09/04/22 18:55 Gram Stain - Final Cerebrospinal Fluid CSF Culture - Preliminary 09/04/22 22:50 Gram Stain - Final Sputum - Expectorated Sputum Sputum Culture - Preliminary 09/06/22 05:34 Blood Culture - Preliminary Blood SPECIMEN COLLECTED 09/06/22 05:34 Blood Culture - Preliminary Blood SPECIMEN COLLECTED 09/04/22 14:21 Blood Culture - Preliminary Blood NEGATIVE TO DATE 09/04/22 14:15 Blood Culture - Preliminary Blood NEGATIVE TO DATE 09/04/22 17:06 Urine Culture - Preliminary Urine,Clean Catch Coag positive Staphylococcus A&P Assessment and plan (1) Septic shock: (2) Pyelonephritis: (3) Severe sepsis: (4) Sinus tachycardia: (5) Hypomagnesemia: (6) Urinary tract infection: Plan Fevers, fatigue, malaise, diffuse muscle aches, nausea, vomiting -Etiology likely sec to UTI, pyelonephritis -Could be possible pyelonephritis she has bilateral CVA tenderness, no radiographic evidence of obstructive uropathy, or renal abscess, I discussed this with Krys PRYOR, also spoke to urology -Her urine does have a fair amount of squamous cells, but leukocyte esterase is positive, WBCs are 55-80, 0-4 RBCs, creatinine 0.9, urine cultures coagulase positive Staphylococcus -Unlikely meningitis, as Gram stain negative, culture negative, CF studies unremarkable -This morning she denies neck pain, but no neck stiffness, Kernig sign negative Brudzinski sign negative, no blurry vision -Right upper quadrant ultrasound within normal limits -She did complain of back pain, CT scan of cervical/thoracic/lumbar spine within normal limits -ESR 41 -Lactate is 1.4 -pH is 7.48, bicarb 21 -WBC 36.7, did receive Decadron -Pro-Tej 5, CRP 106 -COVID negative, flu negative -Off Levophed -Currently is a afebrile -She does have sinus tachycardia heart rates as high as 170 she received 1 dose of metoprolol, currently tachycardia has resolved Plan -Moved to general medical floor -Broad-spectrum antibiotic therapy vancomycin, meropenem, doxycycline for atypical infection possible tickborne illness -We will follow urine cultures, blood cultures, sputum cultures -Viral studies -We will follow LP studies cultures, Decadron stopped -Can consider a tagged white blood cell scan if white blood cell count does not improve -LR at 30 cc an hour -Monitor mentation, monitor urine output, monitor clinical status -Infectious disease consulted -Neurochecks, aspiration precautions -Full code -Lovenox for DVT prophylaxis Attestations Medical Necessity Statement*: Patient with his hospitalization for Staph UTI Diagnoses Septic shock A41.9; R65.21 Pyelonephritis N12 Severe sepsis A41.9; R65.20 Sinus tachycardia R00.0 Hypomagnesemia E83.42 Urinary tract infection N39.0
[2022-09-06 14:14] LABS: Cytomegalovirus Antibody (IGG) >10.00 U/mL; Cytomegalovirus Antibody (IGM) <30.00 AU/mL
[2022-09-06] MEDS: pantoprazole 40 mg SDV IVP (17:34)
[2022-09-06] MEDS: lactated ringers 1,000 ML 50 ML IV (18:35)
[2022-09-06 21:35] LABS: Vancomycin Trough < 4.0 ug/mL (10-15)
[2022-09-07] MEDS: doxycycline 100 MG in sodium chloride 0.9% (plus) 100 ML IV
[2022-09-07] MEDS: meropenem 1,000 MG in sodium chloride 0.9% (plus) 50 ML 100 MG IV (00:20)
[2022-09-07 00:50] VITALS: BP 100/61; PULSE 83; RESP 16; TEMP 36.7; O2SAT 98
--- NOTE | 2022-09-07 01:04 | PC.PHAR ---
Pharmacokinetic dosing service Date: 09/07/22 Time: 103 Patient: Floor: Weight: 44.906 Kilograms Vancomycin single level analysis: Current dose being given: mg Current dosing interval: hrs Current infusion time (hrs): 1 Single level Trough Data: Trough level obtained: 4 mcg/ml Timing of trough - # of hrs before next dose: 00.01 Hrs Desired peak: 40 mcg/ml Desired trough: 15 mcg/ml Diagnosis: Relevant medical/social history: Cultures and sensitivities: Other labs: Estimated PK Parameters: New rate constant (lior): 0.096 hr-1 Half-life: 7.22 Hours Vd from levels: 40.42 Liters (0.7 L/kg) CLvanco=?? 3.880 L/hr Estimated New Dose and Interval Recommended dose: 1117.0 mg Recommended interval: 11.2 Hrs Patient response: Patient is responding to treatment [yes/no] wbc decreasing, S/SX reduced [yes/no] Renal function is stable/unstable Recommendations: Give Vancomycin 750 mg q 8 hrs. Infuse over 1 hrs Expected Cpeak: 33.0 mcg/mL Expected Ctrough: 16.9 mcg/mL AUC 0-24 /SUZAN Data: SUZAN 0.5 mcg/mL:?? AUC/SUZAN:? 1159.8 SUZAN 1.0 mcg/mL:?? AUC/SUZAN:? 579.9 Recommended labs and intervals: Measure Bun and Scr 3 times/week. Renal dosing of other antibiotics (review renal dosing of other medications and list guidelines here): Thank you for the consult, will continue to follow. Signature: Tootie Neville [facility]
[2022-09-07 02:54] LABS: Basophils % 0.2 %; Eosinophils % 8.1 %; Hematocrit 28.4 % (37.0-47.0); Hemoglobin 9.2 g/dL (11.5-15.3); Lymphocytes # 2.4 10^3/uL (0.8-4.8); Lymphocytes % 18.9 %; Mean Corpuscular HGB Conc 32.4 g/dL (30.0-36.0); Mean Corpuscular Hemoglobin 29.8 pg (28.0-34.0); Mean Corpuscular Volume 91.9 fl (81-99); Mean Platelet Volume 9.7 fL (7.4-10.4); Monocytes # 0.7 10^3/uL (0.2-0.9); Monocytes % 5.6 %; Neutrophils # 8.45 10^3/uL (1.8-7.7); Neutrophils % 66.4 %; Nucleated Red Blood Cells % 0 %; Platelet Count 260 10^3/cmm (130-400); Red Blood Count 3.09 10^6/uL (4.1-5.3); Red Cell Distribution Width 12.9 % (12.1-15.1); White Blood Count 12.7 10^3/uL (4.0-10.0)
[2022-09-07 03:10] LABS: Alanine Aminotransferase 14 U/L (0-33); Albumin Level 2.6 g/dL (3.5-5.2); Alkaline Phosphatase 65 U/L (35-105); Anion Gap 11.7 (5-19); Aspartate Amino Transferase 15 U/L (0-32); Blood Urea Nitrogen 13 mg/dL (6-20); Calcium 6.9 mg/dL (8.5-10.5); Carbon Dioxide 25 mmol/L (22-29); Chloride 106 mmol/L (98-107); Globulin 1.9 g/dL (1.3-4.6); Glucose 91 mg/dL (65-115); Osmolality Calculated 288 mOsm/kg (285-295); Potassium 3.7 mmol/L (3.5-5.1); Sodium 139 mmol/L (136-145); Total Bilirubin 0.2 mg/dL (0.15-1.2); Total Protein 4.5 g/dL (6.6-8.7)
[2022-09-07 03:18] LABS: Procalcitonin 2.62 ng/mL (0-0.5)
[2022-09-07 04:14] VITALS: BP 100/67; PULSE 92; RESP 16; TEMP 36.5; O2SAT 98
[2022-09-07] MEDS: vancomycin 750 MG in sodium chloride 0.9% 250 ML 250 MG IV (06:26)
--- NOTE | 2022-09-07 06:58 | P.CONIM_ITS ---
Providers/Reason For Consult Consulting Physician/Specialty*: Usha Bangura MD/ Infectious Disease Reason for Consult*: Septic shock Attending Physician: Gregory Cardenas MD Primary Care Provider: Luis Brown MD History of Present Illness History of Present Illness Rebekah Wagner is a 27 year old female in her usual state of health until this Saturday when she went to work. Later that evening she started to experience fever, chills, extereme fatigue, generalized bodyache and was unable to get out of bed the next morning due to lethargy. She presented to the ER where she was found to be hypotensive, leukocytosis > 20893. She also reported neck pain without headache, photophobia. Denies any chest pain, dyspnea, palpitations or syncope. Denies any abdominal pain, nausea or vomiting. Denies any URI symptoms,c hange in voice or change in hearing. Denies any rash though on exam today noted to have faint redness over he face and upper arms, which just started this morning per patient and her nurse at bedside. It appears to be improving since onset. No sick contacts at home. She has 3 kids in elementary school- none have been sick recently. No dysuria. No abnormal vaginal discharge. NO recent skin or soft tissue infections. She has dogs as pets, no h/o tick bites. Uses tampons during her periods but there is none retained currently Her PMH is notable for infectious mononucleosis in 01/2022, esstential vs secondary HTN undergoing outpatient evaluation, sinus tachycardia of unclear significance. Currently w/up is notable for urine cx + MSSA. TTE without vegetations grossly. Blood cx are negative thus far. She is colonized with grp A strep (06/21) Review of Systems General: Reports: 10 or more systems reviewed and unremarkable except in HPI and below Const: Denies: fever(s), chills or body aches Eyes: Denies: change in vision, blurry vision or photophobia ENMT: Reports: hoarseness; Denies: throat pain, enlarged tonsils, odynophagia or nasal congestion Card: Denies: chest pain, palpitations, irregular heart rhythm, edema, swelling of feet/ankles, lightheadedness, pre-syncope, dyspnea on exertion or orthopnea Resp: Denies: dyspnea, productive cough, non-productive cough, wheezing, stridor, pain on inspiration, change in phlegm color, hemoptysis or chest congestion GI: Denies: abdominal pain, nausea, vomiting, hematemesis, coffee ground emesis, dysphagia, heartburn, diarrhea, constipation, GI cramping, change in stool character, hematochezia or melena : Denies: flank pain, difficulty voiding, dysuria, urinary frequency, urinary urgency, urinary hesitancy or hematuria Musc: Denies: neck pain, back pain, extremity pain, joint swelling, joint warmth or deformity Neuro: Denies: headache(s), numbness in extremities, weakness in extremities, sensory changes, difficulty walking, frequent falls, dizziness, vertigo, behavioral changes, Slurred speech present or seizure-like activity Psych: Denies: anxiety, depression, suicidal ideation or homicidal ideation Endo: Denies: polyuria, polydipsia, tired all the time, cold intolerance or hot flashes Aftab/Lymph: Denies: easy bruising or easy bleeding Medications/Allergies Home Medications Medication Instructions Recorded Confirmed Last Taken Type ibuprofen 200 mg tablet 800 mg PO Q8H PRN Pain 09/04/22 09/19/22 09/09/22 10:30 History ondansetron 4 mg disintegrating 4 mg PO Q8H PRN nausea and 09/04/22 09/19/22 09/08/22 Rx tablet vomiting #10 tabs promethazine 25 mg tablet 25 mg PO Q6H PRN nausea and 09/12/22 09/19/22 Unknown Rx vomiting/headache #20 tabs sumatriptan succinate 100 mg tablet See Rx Instructions PO .COMPLEX 09/12/22 09/19/22 Unknown Rx #30 tabs metoprolol tartrate 25 mg tablet 12.5 mg PO BID PRN 09/19/22 Unknown History Allergies Allergy/AdvReac Type Severity Reaction Status Date / Time No Known Allergies Allergy Verified 09/19/22 16:10 Current Medications Generic Name Dose Route Start Last Admin Trade Name Freq PRN Reason Stop Dose Admin Acetaminophen 650 mg 09/04/22 18:12 09/06/22 13:04 Acetaminophen 325 Mg Tablet PO 650 mg Q6H PRN Administration Mild/Mod Pain Or Temp >/= 101 Enoxaparin Sodium 40 mg 09/05/22 09:00 09/06/22 09:45 Enoxaparin 40 Mg/0.4 Ml Syringe SUBCUT 40 mg Q24H JER Administration Lactated Ringer's 1,000 mls @ 30 mls/hr 09/04/22 18:15 09/06/22 18:35 Lactated Ringers IV 50 mls/hr .Q24H JER Administration Meropenem 1,000 mg/ Sodium 50 mls @ 100 mls/hr 09/04/22 20:00 09/07/22 00:55 Chloride IV Infused Q8H JER Infusion Protocol Doxycycline Hyclate 100 mg/ 100 mls @ 100 mls/hr 09/04/22 21:00 09/07/22 00:20 Sodium Chloride IV 0 mls/hr Q12H JER Infusion Protocol Vancomycin HCl 750 mg/ Sodium 250 mls @ 250 mls/hr 09/07/22 07:00 09/07/22 06:26 Chloride IV 250 mls/hr Q8H JER Administration Protocol As Directed Pantoprazole Sodium 40 mg 09/04/22 18:30 09/06/22 17:34 Pantoprazole 40 Mg Sdv IVP 40 mg Q24H JER Administration PFSH Acute PFSH: Medical History Benign hypertension Has chronic hypertension diagnosed in 2018 and is not currently on any medication. This is managed by her primary care provider Chest discomfort No pertinent past medical history Denies diabetes, asthma, seizures, DVT/PE PCP: Dr. Brown Shortness of breath Surgical History History of appendectomy Laparoscopic procedure performed in 2011 Family History Father Hypertension CAD (coronary artery disease) Stroke CVA in 30's Mother Crohn disease Denies family history of Colon cancer Ovarian cancer Diabetes Clotting disorder Dementia Heart disease Hyperlipidemia Chronic kidney disease (CKD) Breast cancer Suicide Anesthesia complication Bleeding disorder Lung disease Cancer Uterine cancer Thyroid condition Social History Smoking and tobacco status: never smoked Alcohol intake: never Substance/Drug Use: never Lives independently: Yes Marital status: Number of children: 3 Current occupational status: employed 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 Current gender identity: Female Vitals/I&O/Wt Last Vital Signs Temp 97.7 F 09/07/22 04:14 Pulse 92 09/07/22 04:14 Resp 16 09/07/22 04:14 BP 100/67 09/07/22 04:14 Pulse Ox 98 09/07/22 04:14 O2 Del Method 09/06/22 20:38 09/06/22 09/06/22 09/07/22 14:59 22:59 06:59 Intake Total 970 / 970 150 / 1120 687.917 / 1807.917 Balance 970 / 970 150 / 1120 687.917 / 1807.917 Weight last 48 hrs Weight 44.906 kg Physical Exam Narrative: General: No acute distress, AO x3 HEENT: PERRLA, pupils bilaterally equal and reactive, pallors not present Chest: Normal vesicular breath sounds, no added sounds, equal good air entry bilaterally CVS: S1-S2 regular, no murmurs, no tachycardia, no gallops, no rubs Abdomen: Soft, nontender, no organomegaly, bowel sounds present Neuro: No focal deficits, no facial deformity, AO x3, power 5/5 in all limbs Extremities:faint rash over her face and upper extremities appearing to be flushed, per patient and nurse much improved since a few hrs ago. Urinary Catheter Management: [place]illa: Cath Placed During This Visit: yes, but has since been removed by the nurse Reason for Continuing Indwelling Catheter: Decision to DC Catheter Urinary Catheter Date of Insertion: 09/04/22 Urinary Catheter Time of Insertion: 20:00 Date Urinary Catheter Removed: 09/04/22 Time Urinary Catheter Discontinued: 20:30 Data 09/07/22 02:16 09/07/22 02:16 Micro: Microbiology 09/06/22 05:34 Blood Culture - Preliminary Blood NEGATIVE TO DATE 09/06/22 05:34 Blood Culture - Preliminary Blood NEGATIVE TO DATE 09/04/22 17:06 Urine Culture - Preliminary Urine,Clean Catch Coag positive Staphylococcus 09/04/22 18:55 Gram Stain - Final Cerebrospinal Fluid CSF Culture - Preliminary 09/04/22 22:50 Gram Stain - Final Sputum - Expectorated Sputum Sputum Culture - Preliminary 09/04 URine cx : S aureus M.I.C. RX --------- ------ * Amoxicillin/Clavulanate <=4/2 S * Ampicillin >8 R * Ampicillin/Sulbactam <=8/4 S * Ceftriaxone <=8 S * Ciprofloxacin <=1 S * Clindamycin <=0.5 S * Gentamicin <=4 S * Levofloxacin <=1 S * Linezolid 4 S * Nitrofurantoin <=32 S * Oxacillin 0.5 S * Penicillin >8 R * Rifampin <=1 S * Tetracycline <=4 S * Trimethoprim/Sulfamethoxazole <=0.5/9.[address] thoracic, lumbosacral spine: no evidence of discitis or OM CSF Claude CLEAR CLEAR CSF Col COLORLESS COLORLESS CSF WBC 2 0-5 /uL CSF RBC 0 0-0 10^3/uL CSF [place] WBC % 100 H 50-90 % CSF Poly WBC % 0 0-10 % CSF [place] # 0.002 L 50-90 10^3/uL CSF Poly # 0.000 0-10 10^3/uL Path Referral Yes CSF cytology : CSF analysis with regards to requisition [id number]. Cerebrospinal fluid, cytology: ? Rare mononuclear cells identified. ? No malignancy identified. Specimen adequacy: Satisfactory. Gram Stain Final 09/05/22 Result RARE WHITE BLOOD CELLS NO ORGANISMS SEEN CSF Culture Final 09/07/22 NO GROWTH ON DAY 3 * This is a corrected result. * A prior result that was reported as final has been changed. CSF Culture Preliminary (changed) 09/06/22 NO GROWTH AFTER 2 DAYS CSF Culture Final (changed) 09/06/22 NO GROWTH AFTER 2 DAYS CSF Culture Preliminary (changed) 09/05/22 NO GROWTH AFTER 1 DAY 09/04: blood cx : negative to date 09/06: blood cx : negtaive to date 06/21: grp A strep throat: positive Other data: [id number] CT Scan Report Signed with Liana Patient: Rebekah Wagner Unit #: [id number] : [id number] Age/Sex: 27 / F ADM Date: 09/04/22 Loc: ICU Room/Bed: [place] [address]: Gregory Cardenas MD Ordering Provider/Ordering MD: Omar Byrne MD Date of Service: 09/04/22 Procedure(s): CT chest abdpel w/*[id number] Accession Number(s): [id number] Report Number: [id number]/CT chest abdpel w/*[id number] Findings were discussed with Dr Cardenas at 09/04/2022 6:27 PM [employer].? The case was reviewed again for evidence of pyelonephritis or infection of the collecting system. There is no convincing evidence for pyelonephritis.? 1-2 mm nonobstructing right renal calculus is noted in retrospect. ? Addendum Dictated By: ?Rafael Potter Addendum Signed By: ?Rafael Potter Signed Date/Time: 09/04/221831 Addendum Cosigned By: ? PROCEDURE INFORMATION: Exam: CT Chest With Contrast; Diagnostic Exam date and time: 09/04/2022 4:38 PM Age: 27 years old Clinical indication: Fever and nausea and vomiting; Fever and shortness of breath; Additional info: Sirs, SOB, nausea, vom TECHNIQUE: Imaging protocol: Diagnostic computed tomography of the chest with contrast. Radiation optimization: All CT scans at this facility use at least one of these dose optimization techniques: automated exposure control; mA and/or kV adjustment per patient size (includes targeted exams where dose is matched to clinical indication); or iterative reconstruction. Contrast material: OMNI 350; Contrast volume: 85 ml; Contrast route: INTRAVENOUS (IV);? REPORTING DATA: Count of CT and Cardiac NM exams in prior 12 months: This patient has received [address] and 0 known cardiac nuclear medicine studies in the 12 months prior to the current study. COMPARISON: CR XR chest 1V portable [id number] 09/04/2022 2:30 PM RADIATION DOSE METRICS: Total DLP (mGy-cm): 429.73 FINDINGS: Lungs: 5 mm right lower lobe nodule. 5 mm left lower lobe nodule. The lungs are otherwise clear. No consolidation. Pleural spaces: Unremarkable. No pneumothorax. No pleural effusion. Heart: Unremarkable. No cardiomegaly. No pericardial effusion. Lymph nodes: Unremarkable. No enlarged lymph nodes. Vasculature: Unremarkable. No aortic aneurysm.? Bones/joints: Unremarkable. No acute fracture. Soft tissues: Unremarkable. in this age group. (Reference: Josi) References: Josi Weber et al. Guidelines for Management of Incidental Pulmonary Nodules Detected on CT Images: From the Fleischner Society 2017. Radiology. 2017;284(1):228-243. ? PROCEDURE INFORMATION: Exam: CT Abdomen And Pelvis With Contrast Exam date and time: 09/04/2022 4:38 PM Age: 27 years old Clinical indication: Fever and nausea and vomiting; Fever and shortness of breath; Additional info: Sirs, SOB, nausea, vom TECHNIQUE: Imaging protocol: Computed tomography of the abdomen and pelvis with contrast. Radiation optimization: All CT scans at this facility use at least one of these dose optimization techniques: automated exposure control; mA and/or kV adjustment per patient size (includes targeted exams where dose is matched to clinical indication); or iterative reconstruction. Contrast material: OMNI 350; Contrast volume: 85 ml; Contrast route: INTRAVENOUS (IV);? REPORTING DATA: Count of CT and Cardiac NM exams in prior 12 months: This patient has received [address] and 0 known cardiac nuclear medicine studies in the 12 months prior to the current study. COMPARISON: CR XR KUB [id number] 03/24/2022 5:37 PM RADIATION DOSE METRICS: Total DLP (mGy-cm): 429.73 FINDINGS: Liver: Normal. No mass. Gallbladder and bile ducts: Normal. No calcified stones. No ductal dilation. Pancreas: Normal. No ductal dilation. Spleen: Normal. No splenomegaly. Adrenal glands: Normal. No mass. Kidneys and ureters: Hypodensities in both kidneys are too small to characterize but are most likely cysts. No follow-up imaging is recommended. Otherwise unremarkable. No calculus or hydronephrosis. Stomach and bowel: Unremarkable. No obstruction. No mucosal thickening. Appendix: The appendix is not visualized. No secondary signs of appendicitis. Intraperitoneal space: Unremarkable. No free air. No significant fluid collection. Vasculature: Unremarkable. No abdominal aortic aneurysm. Lymph nodes: Unremarkable. No enlarged lymph nodes. Urinary bladder: Unremarkable as visualized. Reproductive: Unremarkable as visualized. Bones/joints: Unremarkable. No acute fracture. Soft tissues: Unremarkable. CT/CT chest abdpel w/*[id number] IMPRESSION: 1. No acute pulmonary findings. 2. 5 mm pulmonary nodules. If the patient does not have known cancer, follow up should be based on clinical information because of the low risk of cancer IMPRESSION: 1. No acute findings. ? COMMENTS: Consistent with the [employer]'s Incidental Findings Committee white paper (J Am Laura Radiol 2018): Any incidental renal lesion less than 1 cm or classified as too small to characterize, or any incidental cystic renal lesion characterized as simple-appearing, is likely benign. No follow-up imaging is recommended for these lesions per consensus recommendations based on imaging criteria. ? Dictated By: Rafael Potter Signed By: Rafael Potter Signed Date/Time: 09/04/22 1727 DD TTE: CONCLUSIONS ?Normal left ventricular size and systolic function, EF 62 %. No ?regional wall motion abnormalities. ?Normal chamber sizes. ?No significant stenotic or regurgitant valvular lesions, based ?on color-flow Doppler examination. ?No intracardiac masses or vegetations noted A&P Assessment and plan (1) Septic shock: (2) Severe sepsis: (3) Urinary tract infection: Plan 27 year old lady with history outlined as above p/w sepsis, septic shock Currently on meropenem, vancomycin and doxycycline Overall evaluation thus far with URine cx + was MSSA UA 55-80 WBC, 2+ leukocyte esterase, no reported dysuria though, no recent urological interventions No retained tampons Blood cx negative on 09/04 and 09/06 CT CAP, thoracolumbar spine without any infectious source No URI symptoms, tonsils not enlarged No abdominal pain diarrhea Echocardiogram negative Overall no other source identified apart from a positive UA and urine cx D/c meropenem, vanc and doxy, start cefazolin 2g iv q8h for MSSA directed therapy Overall 10-14 days of treatment will suffice since blood cx negative and no other source identified. Can switch to ceftriaxone at discharge for ease of once daily administration Patient alerted to report to ER if any signs of recurrent symptoms Coding Level of Care Code Acute Code for Chg Fwd High MDM includes number and complexity of problems actively addressed during encounter, amount and/or complexity of data reviewed/ordered and described risk of complication, morbidity or mortality of management as documented Diagnoses Septic shock A41.9; R65.21 Severe sepsis A41.9; R65.20 Urinary tract infection N39.0
[2022-09-07 08:00] VITALS: BP 103/62; PULSE 84; PULSE 88; RESP 17; TEMP 36.7; O2SAT 100; O2SAT 97
[2022-09-07] MEDS: ceFAZolin 2,000 MG in sodium chloride 0.9% (plus) 50 ML 100 MG IV (08:40)
[2022-09-07] MEDS: enoxaparin 40 mg/0.4 mL Syringe SUBCUT (08:40)
[2022-09-07 12:00] VITALS: BP 117/74; PULSE 85; RESP 17; TEMP 36.7; O2SAT 99
--- NOTE | 2022-09-07 12:54 | PM.DCS ---
Discharge Providers Date of Admission: 09/04/22 17:49 Date of Discharge: September 07, 2022 Attending Provider at Admission: Grgeory Cardenas MD Attending Provider at Discharge: Gregory Cardenas MD Primary Care Provider: Luis Brown MD Diagnoses at Discharge Discharge Diagnosis (1) Septic shock: Status: Acute (2) Pyelonephritis: Status: Acute (3) Severe sepsis: Status: Acute (4) Sinus tachycardia: Status: Acute (5) Hypomagnesemia: Status: Acute (6) Urinary tract infection: Status: Acute Reason for Visit Reason for Visit: fever, n/v Hospital Course Hospital Course Rebekah Wagner is a 27 year old female , history of tachycardia, history of COVID-19, history of leukocytosis is history of infectious mononucleosis, who presents to [facility] due to fatigue, malaise, fevers, nausea, vomiting, diffuse body aches since Saturday night.? Patient tells me that she was doing well, she works in the [employer] department in [place], she has 3 kids the youngest being 1-year-old, no sick contacts known at home, her works at a bank, he is not sick she was doing well over the weekend, she went to work on Saturday, she started to feel unwell in the evening time and when she went home she felt quite sick.? She had fatigue, malaise, diffuse body aches, fevers, chills, nausea, vomiting, poor appetite.? Throughout the next 24 hours, her symptoms worsen, she remained in bed due to feeling ill.? No recent travel, no known sick contacts, no history of tick bites, she did have COVID twice, but no recent history of COVID-19, she had infectious mononucleosis for which she saw infectious disease, due to persistent shortness of breath and fatigue.? She also had complaints of tachycardia she had a event monitor ordered that showed sinus tachycardia, heart rates as high as 160.? She sees cardiology for her tachycardia she is on metoprolol.? She denies any drug use, no IV drug use, she does not drink alcohol.? She denies any headache, no blurry vision, she does have nausea vomiting.? She points to her neck she tells me that everything from the neck down hurts her she hurts all over.? She does report neck pain, neck pain with range of motion, but her arms hurt or her chest hurts her her abdomen hurts her, her back hurts her her legs hurt her.? No recent falls, recent injuries.? She has had an appendectomy.? She is a bit tender in the right upper quadrant, and a bit nauseous she still has her gallbladder.? No diarrhea.? No bloody or black stools.? Denies any dysuria she has had UTIs in the past, no history of kidney stones, no history of pyelonephritis.? She denies being .? Denies a history of STDs, no vaginal discharge.? Currently alert oriented x3, no facial droop no slurring of words, no focal weakness, no paresthesias, Patient was admitted to [facility] for fever, fatigue, malaise secondary to UTI and pyelonephritis, initially she was admitted to ICU, due to septic shock, requiring Levophed, possibly broad-spectrum antibiotic therapy, her urine cultures grew Staph aureus, infectious disease was consulted. Patient's condition overall improved, she was moved to general medical floors remained afebrile, leukocytosis improved. Discharged on 7 remaining days of Rocephin follow-up with infectious disease as outpatient. Due to atypical nature of and infection, Staph aureus, she had broad work-up for other sources of infections. So far lumbar puncture cultures remain unremarkable. Blood cultures remain unremarkable. CT of the chest and abdomen pelvis does not show any acute source of infection. CT of her spine does not show any acute source of infection. Gallbladder ultrasound unremarkable. Cardiac echo, no significant valvular vegetations. Interestingly her EBV IgM antibody, and capsid antibody remain positive in addition to her nuclear antigen., Advised to avoid contact sports if any left upper quadrant pain, come back to the emergency room. Follow-up with infectious disease, Physical Exam Const: COMMON NORMALS: no acute distress and patient oriented x3 Resp: COMMON NORMALS: normal respiratory effort, No retractions, No use of accessory muscles and clear to auscultation bilaterally AUSCULTATION: clear to auscultation bilaterally Cardio: COMMON NORMALS: regular rate, regular rhythm, S1 normal heart sound present and S2 normal heart sound present RATE: regular rate RHYTHM: regular rhythm HEART SOUNDS: S1 normal heart sound present and S2 normal heart sound present GI: COMMON NORMALS: Normal to inspection, nondistended, normoactive bowel sounds present and non-tender Extremity: COMMON NORMALS: no pedal edema Neuro: COMMON NORMALS: patient oriented x3 Psych: COMMON NORMALS: mental status grossly normal Urinary Catheter Management: [place]illa: Cath Placed During This Visit: yes, but has since been removed by the nurse Reason for Continuing Indwelling Catheter: Decision to DC Catheter Urinary Catheter Date of Insertion: 09/04/22 Urinary Catheter Time of Insertion: 20:00 Date Urinary Catheter Removed: 09/04/22 Time Urinary Catheter Discontinued: 20:30 Discharge Data Studies Completed and Pending Completed Studies During Hospitalization Category Date Time Status CT cervical spin wo con* [id number] Routine Cat Scan 09/06/22 08:[address] chest abdomen pelvis [CT chest abdpel w/*[id number] Cat Scan 09/04/22 16:16 Completed ] Stat CT head wo con* [id number] Stat Cat Scan 09/04/22 18:[address] lumbar spine wo con* [id number] Routine Cat Scan 09/06/22 08:[address] thoracic spin wo con* [id number] Routine Cat Scan 09/06/22 08:53 Completed XR chest 1V portable [id number] Stat Exams 09/04/22 14:01 Completed CV. echo complete* [id number] Routine Ultrasound 09/06/22 09:06 Completed US gall bladder [id number] Routine Ultrasound 09/04/22 20:21 Completed Pending at discharge Category Date Time Status DIOMEDES Profile Rheumatology AM LABS Lab 09/06/22 05:34 Received Blood Culture AM LABS Lab 09/06/22 05:34 Results Blood Culture Stat Lab 09/04/22 14:21 Results C Reactive Protein AM LABS Lab 09/08/22 04:00 Ordered CSF Culture & Gram Stain Stat Lab 09/04/22 18:55 Results Complete Blood Count w/Auto AM LABS Lab 09/08/22 04:00 Ordered Comprehensive Metabolic Panel AM LABS Lab 09/08/22 04:00 Ordered Herpes Simplex Virus DNA Stat Lab 09/04/22 18:55 Received Lymes Disease Antibodies CSF Stat Lab 09/04/22 18:55 Received Procalcitonin AM LABS Lab 09/08/22 04:00 Ordered Sputum Culture and Gram Stain Stat Lab 09/04/22 22:50 Results Harmon Enceph.Virus IFA CSF Stat Lab 09/04/22 18:55 Received Tick Panel Stat Lab 09/04/22 19:38 Received Urine Culture Stat Lab 09/04/22 17:06 Results West Nile Virus AB Panel,CSF Stat Lab 09/04/22 18:55 Received Radiology Impressions Chest X-Ray 09/04/22 14:01 IMPRESSION: No acute findings. Chest/Abdomen/Pelvis CT 09/04/22 16:16 IMPRESSION: 1. No acute pulmonary findings. 2. 5 mm pulmonary nodules. If the patient does not have known cancer, follow up should be based on clinical information because of the low risk of cancer IMPRESSION: 1. No acute findings. COMMENTS: Consistent with the [employer]'s Incidental Findings Committee white paper (J Am Laura Radiol 2018): Any incidental renal lesion less than 1 cm or classified as too small to characterize, or any incidental cystic renal lesion characterized as simple-appearing, is likely benign. No follow-up imaging is recommended for these lesions per consensus recommendations based on imaging criteria. ADDENDUM: 09/04/22 1832 Findings were discussed with Dr Cardenas at 09/04/2022 6:27 PM [facility] [employer]DER. The case was reviewed again for evidence of pyelonephritis or infection of the collecting system. There is no convincing evidence for pyelonephritis. 1-2 mm nonobstructing right renal calculus is noted in retrospect. Head CT 09/04/22 18:40 IMPRESSION: 1. No acute intracranial abnormality. 2. Inflammatory changes of the paranasal sinuses. Gallbladder Ultrasound 09/04/22 20:21 IMPRESSION: Normal RIGHT upper quadrant ultrasound. Cervical Spine CT 09/06/22 08:53 IMPRESSION: No evidence of discitis or osteomyelitis. Lumbar Spine CT 09/06/22 08:53 IMPRESSION: No evidence of discitis or osteomyelitis. Thoracic Spine CT 09/06/22 08:53 IMPRESSION: No acute thoracic spine findings. Laboratory Results WBC 12.7 10^3/uL (4.0-10.0) H 09/07/22 02:16 RBC 3.09 10^6/uL (4.1-5.3) L 09/07/22 02:16 Hgb 9.2 g/dL (11.5-15.3) L 09/07/22 02:16 Hct 28.4 % (37.0-47.0) L 09/07/22 02:16 MCV 91.9 fl (81-99) 09/07/22 02:16 MCH 29.8 pg (28.0-34.0) 09/07/22 02:16 MCHC 32.4 g/dL (30.0-36.0) 09/07/22 02:16 RDW 12.9 % (12.1-15.1) 09/07/22 02:16 Plt Count 260 10^3/cmm (130-400) 09/07/22 02:16 MPV 9.7 fL (7.4-10.4) 09/07/22 02:16 Neut % (Auto) 66.4 % 09/07/22 02:16 Lymph % (Auto) 18.9 % 09/07/22 02:16 Motley % (Auto) 5.6 % 09/07/22 02:16 Eos % (Auto) 8.1 % 09/07/22 02:16 Baso % (Auto) 0.2 % 09/07/22 02:16 Neut # (Auto) 8.45 10^3/uL (1.8-7.7) H 09/07/22 02:16 Lymph # (Auto) 2.4 10^3/uL (0.8-4.8) 09/07/22 02:16 Motley # (Auto) 0.7 10^3/uL (0.2-0.9) 09/07/22 02:16 Eos # (Auto) 1.0 10^3/uL (0.0-0.8) H 09/07/22 02:16 Baso # (Auto) 0.0 10^3/uL (0.0-0.1) 09/07/22 02:16 Nucleated RBC % (auto) 0 % 09/07/22 02:16 Total Counted 100 (0-100) 09/05/22 02:16 Atypical Lymphs % 0.0 % (0-5) 09/05/22 02:16 Absolute Neutrophils 35.6 10^3/cmm (1.4-6.5) H 09/05/22 02:16 Segmented Neutrophils 83 % 09/05/22 02:16 Abs Segm Neuts (Man) 30.5 10/cmm (1.6-7.1) H 09/05/22 02:16 Band Neutrophils 14.0 % 09/05/22 02:16 Abs Band Neuts (Man) 5.1 10^3/cmm (0.0-1.2) H 09/05/22 02:16 Absolute Lymphocytes 0.4 10^3/cmm (1.2-3.4) L 09/05/22 02:16 Lymphocytes (Manual) 1 % 09/05/22 02:16 Monocytes (Manual) 1.0 % 09/05/22 02:16 Absolute Monocytes 0.4 10^3/cmm (0.1-0.6) 09/05/22 02:16 Eosinophils (Manual) 1 % 09/05/22 02:16 Absolute Eosinophils 0.3 10^3/cmm (0.0-0.7) 09/05/22 02:16 Basophils (Manual) 0.0 % 09/05/22 02:16 Absolute Basophils 0.0 10^3/cmm (0.0-0.2) 09/05/22 02:16 Nucleated RBCs # 0.0 /100WBC 09/07/22 02:16 Toxic Granulation 1+ H 09/05/22 02:16 Platelet Estimate Normal (Normal) 09/05/22 02:16 ESR 41 mm/hr (0-15) H 09/04/22 14:00 PT 19.30 SECONDS (12.1-14.9) H 09/04/22 23:50 INR 1.57 (0.8-1.2) H 09/04/22 23:50 APTT 43.2 SECONDS (23.9-36.7) H 09/04/22 23:50 Fibrinogen 432 mg/dL (174-498) 09/04/22 23:50 Fibrin Degrad Products Neg, <10 ug/mL (NEG) 09/04/22 23:50 D-Dimer 1.66 ug/mIFEU (0-0.59) H 09/04/22 23:50 Specimen Type Arterial 09/04/22 18:37 Sample Site Radial, left 09/04/22 18:37 ABG pH 7.48 (7.35-7.45) H 09/04/22 18:37 ABG pCO2 23.8 mmHg (35-45) L 09/04/22 18:37 ABG pO2 102.0 mmHg (80.0-100.0) H 09/04/22 18:37 ABG HCO3 17.6 mmol/L (22-26) L 09/04/22 18:37 ABG Base Excess -4.3 mmol/L (-2.0-2.0) L 09/04/22 18:37 Hipolito Test Pos 09/04/22 18:37 Hematocrit 38.3 % (37-47) 09/04/22 18:37 O2 Delivery Device Room air 09/04/22 18:37 FiO2 21.0 % 09/04/22 18:37 Senior Automation Engineer ID Cak 09/04/22 18:37 Sodium 139 mmol/L (136-145) 09/07/22 02:16 Potassium 3.7 mmol/L (3.5-5.1) 09/07/22 02:16 Chloride 106 mmol/L (98-107) 09/07/22 02:16 Carbon Dioxide 25 mmol/L (22-29) 09/07/22 02:16 Anion Gap 11.7 (5-19) 09/07/22 02:16 BUN 13 mg/dL (6-20) 09/07/22 02:16 Creatinine 0.5 mg/dL (0.5-0.9) 09/07/22 02:16 GFR Calculation 148.0 mL/min (90-130) H 09/07/22 02:16 Glucose 91 mg/dL (65-115) 09/07/22 02:16 Calculated Osmolality 288 mOsm/kg (285-295) 09/07/22 02:16 Lactic Acid 1.4 mmol/L (0.5-2.2) 09/05/22 02:16 Lactate 3.5 mmol/L (0.5-2.2) H 09/04/22 14:00 Calcium 6.9 mg/dL (8.5-10.5) L 09/07/22 02:16 Phosphorus 1.6 mg/dL (2.5-4.5) L 09/06/22 05:34 Magnesium 2.1 mg/dL (1.7-2.3) 09/06/22 05:34 Ferritin 124 ng/mL (15-150) 09/04/22 14:00 Total Bilirubin 0.2 mg/dL (0.15-1.2) 09/07/22 02:16 AST 15 U/L (0-32) 09/07/22 02:16 ALT 14 U/L (0-33) 09/07/22 02:16 Alkaline Phosphatase 65 U/L (35-105) 09/07/22 02:16 Creatine Kinase 277 U/L (26-192) H 09/04/22 19:38 Troponin T Baseline 12 ng/L (0-10) H 09/04/22 19:38 Troponin T 120 Minute 11.87 ng/L (0-10) H 09/04/22 23:50 Delta Troponin T -0.13 ABS# (0-10) L 09/04/22 23:50 Troponin T Hi Sens 6Hr 9.29 ng/L (0-10) 09/05/22 02:16 Troponin T Hi Sens 6Hr Delta -2.58 ng/L (0-12) L 09/05/22 02:16 C-Reactive Protein 40.0 mg/L (0.0-4.9) H 09/07/22 02:16 Total Protein 4.5 g/dL (6.6-8.7) L 09/07/22 02:16 Albumin 2.6 g/dL (3.5-5.2) L 09/07/22 02:16 Globulin 1.9 g/dL (1.3-4.6) 09/07/22 02:16 Lipase 18 U/L (13-60) 09/04/22 14:00 Procalcitonin 2.62 ng/mL (0-0.5) H 09/07/22 02:16 TSH 1.16 uIU/mL (0.27-4.20) 09/04/22 14:00 TSH 1.19 uIU/mL (0.27-4.20) 09/04/22 14:00 HCG, Qual Negative (Negative) 09/04/22 14:00 Random Cortisol 30.19 ug/dL (2.47-19.5) H 09/04/22 14:00 Urine Color Yellow (Yellow) 09/04/22 15:20 Urine Appearance Clear (CLEAR) 09/04/22 15:20 Urine pH 5 (5-7) 09/04/22 15:20 Ur Specific [place] 1.015 (1.005-1.030) 09/04/22 15:20 Urine Protein Neg (Negative) 09/04/22 15:20 Urine Glucose (UA) Norm (Normal) 09/04/22 15:20 Urine Ketones 1+ (Negative) H 09/04/22 15:20 Urine Blood Neg (Negative) 09/04/22 15:20 Urine Nitrate Negative (Negative) 09/04/22 15:20 Urine Bilirubin Neg (Negative) 09/04/22 15:20 Urine Urobilinogen Norm mg/dL (Negative) 09/04/22 15:20 Ur Leukocyte Esterase 2+ (Negative) H 09/04/22 15:20 Urine RBC 0-4 /hpf (0-2) H 09/04/22 15:20 Urine WBC 55-80 /hpf (0-5) H 09/04/22 15:20 Ur Squamous Epith Cells 10-15 /hpf (0-5) H 09/04/22 15:20 Amorphous Sediment Not Reportable 09/04/22 15:20 Urine Bacteria Trace /hpf (NONE) 09/04/22 15:20 Urine Mucus Trace /hpf 09/04/22 15:20 CSF Appearance Clear (CLEAR) 09/04/22 18:55 CSF Color Colorless (COLORLESS) 09/04/22 18:55 CSF Specific [place] 1.010 09/04/22 18:55 CSF WBC 2 /uL (0-5) 09/04/22 18:55 CSF RBC 0 10^3/uL (0-0) 09/04/22 18:55 CSF Mononuclear # Auto 0.002 10^3/uL (50-90) L 09/04/22 18:55 CSF Mononuclear WBCs % 100 % (50-90) H 09/04/22 18:55 CSF Polynuclear WBCs # 0.000 10^3/uL (0-10) 09/04/22 18:55 CSF Polynuclear WBCs % 0 % (0-10) 09/04/22 18:55 CSF Diff Comment Yes 09/04/22 18:55 CSF Glucose 61 mg/dL (40-70) 09/04/22 18:55 CSF Total Protein 22 mg/dL (15-45) 09/04/22 18:55 Nasal Influ A H1 2008 PCR Not detected (NOT DETECT) 09/04/22 23:40 Vancomycin Trough < 4.0 ug/mL (10-15) L 09/06/22 21:00 Urine Opiates Screen Negative ng/mL (Negative) 09/04/22 15:20 Ur Barbiturates Screen Negative ng/mL (Negative) 09/04/22 15:20 Ur Phencyclidine Scrn Negative ng/mL (Negative) 09/04/22 15:20 Ur Amphetamines Screen Negative ng/mL (Negative) 09/04/22 15:20 U Benzodiazepines Scrn Negative ng/mL (Negative) 09/04/22 15:20 Urine Cocaine Screen Negative ng/mL (Negative) 09/04/22 15:20 U Marijuana (THC) Screen Negative ng/mL (Negative) 09/04/22 15:20 Adenovirus (PCR) Not detected (NOT DETECT) 09/04/22 23:40 C. pneumoniae DNA (PCR) Not detected (NOT DETECT) 09/04/22 23:40 Coronavirus 229E (PCR) Not detected (NOT DETECT) 09/04/22 23:40 CMV IgG Ab >10.00 U/mL H 09/04/22 19:38 CMV IgM Ab <30.00 AU/mL 09/04/22 19:38 EBV IgG Ab >750.00 U/mL H 09/04/22 19:38 EBV IgM Ab 64.10 U/mL H 09/04/22 19:38 EBV Capsid Ag IgG, IgM 60.40 U/mL H 09/04/22 19:38 EBV Nuclear Antigen 269.00 U/mL H 09/04/22 19:38 EBV Interpretation See note 09/04/22 19:38 Hepatitis A IgM Ab Non-reactive (Nonreactive) 09/04/22 14:00 Hep Bs Antigen Non-reactive (Nonreactive) 09/04/22 14:00 Hep B Core IgM Ab Non-reactive (Nonreactive) 09/04/22 14:00 Hepatitis C Antibody Non-reactive (Nonreactive) 09/04/22 14:00 Monoscreen Negative (Negative) 09/04/22 23:50 HIV 1&2 Ab & HIV 1 Ag Non-reactive (Non-Reactiv) 09/04/22 14:00 HIV 1&2 Antibody Non-reactive (Non-Reactiv) 09/04/22 14:00 Human Metapneumovir PCR Not detected (NOT DETECT) 09/04/22 23:40 Influenza A (H1) PCR Not detected (NOT DETECT) 09/04/22 23:40 Influenza A (H3) PCR Not detected (NOT DETECT) 09/04/22 23:40 Influenza Type A Ag negative (Negative) 09/04/22 14:11 Influenza Type A (PCR) Not detected (NOT DETECT) 09/04/22 23:40 Influenza Type B Ag negative (Negative) 09/04/22 14:11 Influenza Type B (PCR) Not detected (NOT DETECT) 09/04/22 23:40 M. pneumoniae (PCR) Not detected (NOT DETECT) 09/04/22 23:40 Parainfluenza 1 (PCR) Not detected (NOT DETECT) 09/04/22 23:40 Parainfluenza 2 (PCR) Not detected (NOT DETECT) 09/04/22 23:40 Parainfluenza 3 (PCR) Not detected (NOT DETECT) 09/04/22 23:40 Parainfluenza 4 (PCR) Not detected (NOT DETECT) 09/04/22 23:40 RSV Type A (PCR) Not detected (NOT DETECT) 09/04/22 23:40 RSV Type B (PCR) Not detected (NOT DETECT) 09/04/22 23:40 Entero/Rhino (PCR) Not detected (NOT DETECT) 09/04/22 23:40 SARS-CoV-2 (PCR) Not detected (NOT DETECT) 09/04/22 23:40 SARS-CoV-2 Ag (Rapid) negative (Negative) 09/04/22 14:11 Vitals Last Vital Signs Temp 98.0 F 09/07/22 08:00 Pulse 88 09/07/22 08:00 Resp 17 09/07/22 08:00 BP 103/62 09/07/22 08:00 Pulse Ox 100 09/07/22 08:00 O2 Del Method 09/07/22 08:00 Discharge Plan Discharge Patient Disposition: Home Condition: Stable Prescriptions: New ceftriaxone 1 gram recon soln 1 g IV DAILY 7 Days Qty: 7 0RF Continued ondansetron 4 mg tablet,disintegrating 4 mg PO Q8H PRN (Reason: nausea and vomiting) Qty: 10 0RF ibuprofen 200 mg Tablet 800 mg PO Q8H PRN (Reason: Pain) albuterol sulfate 90 mcg/actuation HFA aerosol inhaler 1 puff inhalation QID PRN (Reason: shortness of breath or wheezing) Changed metoprolol tartrate 25 mg tablet 12.5 mg PO BID 30 Days Qty: 60 5RF Discontinued cefdinir 300 mg capsule 300 mg PO BID 10 Days Qty: 20 0RF mebendazole 100 mg tablet,chewable See Rx Instructions .ROUTE .COMPLEX Rx Instructions: Take 1 tab today; repeat in 14 days. Discharge Orders: Discharge Order (Routine); Ordered 09/07/22 Ordered By: Gregory Cardenas Referrals: Outpt IV Antibiotics- [facility] [Other] (You are scheduled to come in daily for the next 10 days, at 11:30 to get your IV antibiotics Rocephin, at the GI Lab here in the Hospital. On the weekend you will need to check in at the ER admissions & through the week you can checkin at the Surgical Entrance desk. Any questions call the number above & Ext [phone] or ext. [phone]. ) Usha Bangura MD [Hospitalist] - 09/27/22 3:00 pm ( ) Luis Brown MD [Primary Care Provider] - 09/11/22 10:30 am Discharge Diet: Regular Discharge Activity: Resume usual activity Patient Instructions: Opioid Safety Activity Restrictions/Additional Instructions: - Rocephin, 1 gram, every 24 hours for 7 days -If any recurrent fevers or chills go to the emergency room -Please see primary care in 1 week Discharge Attestations Time Spent in Discharge Care*: greater than 30 min Quality Metrics Clinical Quality Measures [ No reported AMI, CVA or VTE this stay] Coding Level of Care Code 57893 Total time (in minutes) for Discharge: 40 Diagnoses Septic shock A41.9; R65.21 Pyelonephritis N12 Severe sepsis A41.9; R65.20 Sinus tachycardia R00.0 Hypomagnesemia E83.42 Urinary tract infection N39.0
[2022-09-07 13:17] VITALS: BP 117/74; PULSE 85; RESP 17; TEMP 36.7; O2SAT 99
[2022-09-07 13:29] LABS: CENTROMERE B ANTIBODY <1.0 NEG AI (<1.0 NEG); JO-1 ANTIBODY <1.0 NEG AI (<1.0 NEG); RNP ANTIBODY <1.0 NEG AI (<1.0 NEG); SCL-70 ANTIBODY <1.0 NEG AI (<1.0 NEG); SJOGREN'S ANTIBODY (SS-A) <1.0 NEG AI (<1.0 NEG); SM ANTIBODY <1.0 NEG AI (<1.0 NEG); SS-B <1.0 NEG AI (<1.0 NEG)
[2022-09-07 13:37] LABS: Lyme AB Screen <0.90 index
[2022-09-07 14:08] LABS: COMPLEMENT, TOTAL (CH50) 41 U/mL (31-60); Leukemia Profile (BBPL) See Report; Lymphoma Profile (BBPL) See Report
[2022-09-07 15:05] LABS: COMPLEMENT COMPONENT C3C 86 mg/dL (83-193); COMPLEMENT COMPONENT C4C 25 mg/dL (15-57)
[2022-09-07 15:30] LABS: THYROID PEROXIDASE ANTIBODIES 1 IU/mL (<9)
[2022-09-07 16:25] LABS: ANA SCREEN, IFA NEGATIVE (NEGATIVE)
[2022-09-09 15:50] LABS: HSV 1 DNA NOT DETECTED; HSV 2 DNA NOT DETECTED; HSV Source csf
[2022-09-10 17:25] LABS: E. Chaffeensis AB IGG <1:64; E. Chaffeensis AB IGM <1:20
[2022-09-11 10:33] LABS: DNA AB (DS) CRITHIDIA,IFA NEGATIVE (NEGATIVE)
[2022-09-11 17:35] LABS: St. Louis Enceph.Virus IGG CSF <1:1; St. Louis Enceph.Virus IGM CSF <1:1
[2022-09-11 17:35] LABS: RMSF IGG NOT DETECTED; RMSF IGM NOT DETECTED
[2022-09-11 19:35] LABS: Lyme Disease AB (IGG),IBL NO BANDS DETECTED; Lyme Disease AB (IGM), IBL NO BANDS DETECTED
[2022-09-13 21:10] LABS: West Nile Virus AB (IGG) <1.30 index; West Nile Virus AB (IGM) <0.90 index
== END 2022-09-07 13:31 | disposition home or self-care (01) | DRG 871 ==
LOC: ER 17:49 → ICU 17:58 → MEDSURG 09-06 11:18
PROVIDERS: Student in an Organized Health Care Education/Training Program; Admitting Provider Family Medicine; Emergency Provider Emergency Medicine; PCP Family Medicine; Visit Provider Family Medicine
DX: A41.01 Sepsis due to Methicillin susceptible Staphylococcus aureus (principal); R65.21 Severe sepsis with septic shock; N39.0 Urinary tract infection, site not specified; N12 Tubulo-interstitial nephritis, not specified as acute or chronic; E83.42 Hypomagnesemia; R00.0 Tachycardia, unspecified; M54.2 Cervicalgia; I10 Essential (primary) hypertension; I95.9 Hypotension, unspecified; Z86.16 Personal history of COVID-19; Z86.19 Personal history of other infectious and parasitic diseases
CPT/HCPCS: 36415; 36600; 51702; 62270; 70450; 71045; 71260; 72125; 72128; 72131; 74177; 76705; 80053; 80074; 80202; 80306; 80503; 81000; 81001; 82533; 82550; 82728; 82803; 82945; 83605; 83690; 83735; 84100; 84145; 84157; 84315; 84443; 84484; 84703; 85007; 85025; 85362; 85378; 85384; 85610; 85651; 85730; 86140; 86160; 86162; 86235; 86255; 86308; 86376; 86617; 86618; 86653; 86664; 86665; 86666; 86757; 86788; 86789; 87040; 87070; 87075; 87077; 87086; 87184; 87186; 87205; 87426; 87486; 87530; 87581; 87633; 87804; 87806; 88184; 88185; 89050; 93005; 93306; 94664; 96365; 96366; 96367; 96372; 96375; 96376; 99285; C9113; J0690; J1100; J1650; J2185; J2405; J2543; J2765; J3370; J3475; J3490; J7030; J7040; J7050; J7060; J7120; Q9967

== ENCOUNTER 2022-09-08 11:32 | Emergency (ER) | payer MEDICAID, SELFPAY ==
[2022-09-08] VITALS (7 sets, daily range): BP systolic 94–139; BP diastolic 64–102; PULSE 65–100; RESP 12–19; TEMP 36.7; O2SAT 98–100; BMI 19.4
--- NOTE | 2022-09-08 12:41 | ED_ITS ---
HPI - Headache General: Chief Complaint: Headache Stated Complaint: neck pressure/spinal tap 2 days ago Time Seen by Provider: 09/08/22 11:59 Source: patient Mode of arrival: ambulatory History of Present Illness: 27-year-old female who was in earlier this week. She was seen on September 04 and had a significant leukocytosis septic work-up was done CSF blood cultures were negative urine showed coagulase positive staph she is currently on IV antibiotics daily until her final blood cultures are done. She reports today complaining of a headache whenever she is upright it is relieved by laying down. She is concerned about is post spinal tap headache and is asking about potential relief. MD elicited complaint: headache Onset (ago): day(s) Quality & Timing: throbbing Exacerbating factors: sitting/standing Relieving factors: other (Supine) Associated symptoms: Reports nausea; Deny chest pain, confusion, cough, diaphoresis, eye pain, eye redness, fever(s), lightheadedness, loss of vision, malaise, neck stiffness, numbness, paresthesias, photophobia, pre-syncope, rash, seizures, short of breath, sound sensitivity, syncope, vomiting, weakness or other Review of Systems Const: Denies: fever(s), chills, fatigue, malaise or diaphoresis ENMT: Denies: throat pain, ear or mastoid pain, nasal discharge or nasal congestion Card: Denies: chest pain, lightheadedness, syncope or pre-syncope Resp: Denies: dyspnea, productive cough or non-productive cough GI: Reports: nausea; Denies: abdominal pain or vomiting : Denies: flank pain, difficulty voiding, dysuria, urinary frequency or urinary urgency Skin/Breast: Denies: rash Neuro: Denies: confusion PFSH ED PFSH: Medical History Benign hypertension Has chronic hypertension diagnosed in 2018 and is not currently on any medication. This is managed by her primary care provider Chest discomfort No pertinent past medical history Denies diabetes, asthma, seizures, DVT/PE PCP: Dr. Kevin Camposness of breath Surgical History History of appendectomy Laparoscopic procedure performed in 2011 Family History Father Hypertension CAD (coronary artery disease) Stroke CVA in 30's Mother Crohn disease Denies family history of Colon cancer Ovarian cancer Diabetes Clotting disorder Dementia Heart disease Hyperlipidemia Chronic kidney disease (CKD) Breast cancer Suicide Anesthesia complication Bleeding disorder Lung disease Cancer Uterine cancer Thyroid condition Social History Smoking and tobacco status: never smoked Alcohol intake: never Lives independently: Yes Marital status: Number of children: 3 Current occupational status: employed 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 Current gender identity: Female Physical Exam Const: COMMON NORMALS: no acute distress GENERAL APPEARANCE: cooperative and comfortable ORIENTATION/CONSCIOUSNESS: Yes awake, Yes oriented to person, Yes oriented to place and Yes oriented to time HENMT: COMMON NORMALS: normocephalic, atraumatic and hearing grossly normal bilaterally HEAD & SCALP: normocephalic and atraumatic Eye: DIRECT OPHTHALMOSCOPY: No photophobia Resp: COMMON NORMALS: normal respiratory effort, No retractions, No use of accessory muscles and clear to auscultation bilaterally AUSCULTATION: clear to auscultation bilaterally Cardio: COMMON NORMALS: regular rate, regular rhythm and No murmurs present (Cardio) RATE: regular rate RHYTHM: regular rhythm GI: COMMON NORMALS: Soft to palpation and No hepatosplenomegaly present AUSCULTATION: Yes normoactive bowel sounds PALPATION: Yes Soft to palpation, No Tenderness to palpation present (GI), No Guarding due to palpation present (GI) and Yes No hepatosplenomegaly present Extremity: COMMON NORMALS: normal to inspection, capillary refill normal, no clubbing, cyanosis or edema, no calf tenderness and no pedal edema Neuro: SENSORIUM/ORIENTATION: Yes oriented to person, Yes oriented to place and Yes oriented to time Skin: COMMON NORMALS: no rashes or lesions noted GENERAL SKIN EXAM: no rashes or lesions noted Course Vital Signs: Vital signs: Vital Signs Temperature 98.1 F 09/08/22 11:38 Pulse Rate 65 09/08/22 14:30 Respiratory Rate 12 09/08/22 14:30 Blood Pressure 97/64 09/08/22 14:30 Pulse Oximetry 100 09/08/22 14:30 Oxygen Delivery Me thod 09/08/22 11:38 MDM - Headache Medical Decision Making Consult and anesthesiology. Dr. Moran was kind enough to come and see the patient she offered the patient blood patch however after she reviewed the case and discussed the risks with the patient there is some risk that if she does have a positive blood culture we may introduce infection to that area. It seems rather low all of the blood cultures to this point are negative Dr. Moran discussed with the patient and ultimately decided not to do the blood patch. In lieu of this she was given infusion of aminophylline as well as IV fluids she is feeling much better after this along with Phenergan that she was given. We will discharge patient home have her follow-up if symptoms persistent. Advised bed rest and should be supine is much as possible increased caffeine ingestion and fluid ingestion. Patient did receive her ceftriaxone infusion while she was in the emergency room because it was due during that time. Medical Records I reviewed the patient's medical records. Lab Data I reviewed the patient's lab results. Laboratory Results PT 12.50 SECONDS (12.1-14.9) 09/08/22 12:05 INR 0.90 (0.8-1.2) 09/08/22 12:05 APTT 30.8 SECONDS (23.9-36.7) 09/08/22 12:05 Discharge Plan Discharge Patient Disposition: Home Clinical Impression: Cerebrospinal fluid leak at lumbar puncture site Condition: Stable Prescriptions: New promethazine 25 mg tablet 25 mg PO Q6H PRN (Reason: nausea and vomiting/headache) Qty: 10 0RF No Action ondansetron 4 mg tablet,disintegrating 4 mg PO Q8H PRN (Reason: nausea and vomiting) Qty: 10 0RF ibuprofen 200 mg Tablet 800 mg PO Q8H PRN (Reason: Pain) metoprolol tartrate 25 mg tablet 12.5 mg PO BID 30 Days Qty: 60 5RF Discharge Orders: Discharge ED (Routine); Ordered 09/08/22 Ordered By: Adelfo Christian Referrals: Luis Brown MD [Primary Care Provider] - Discharge Diet: Usual diet Discharge Activity: Limit activity as instructed Patient Instructions: Opioid Safety, Pain Management Activity Restrictions/Additional Instructions: You were seen today for post spinal tap headache. Your blood cultures have not final resulted so anesthesia did not feel it appropriate to place an epidural patch. The fluids and aminophylline seem to have resolved the majority of your symptoms. Recommend minimal activity try scaling down is much as possible for the next 24 does 48 hours the symptoms should continue to improve you can use promethazine caffeine or anti-inflammatories as needed. If your symptoms worsen recheck. Coding Level of Care Code ED Exceptional Student Education Teacher for Cristian Sutton
[2022-09-08] MEDS: sodium chloride 0.9% 1,000 ML 999 ML IV ×2 (13:01→13:44)
--- NOTE | 2022-09-08 13:19 | PM.MISC ---
Miscellaneous Note Purpose of Documentation: Epidural Blood patch Note: Assessed patient for PDPH after lumbar puncture several days ago for meningitis r/o. Patient presents with classic symptoms of positional headache and neck ache, relieved with recumbent positioning. Discussed options with patient - watchful waiting vs epidural blood patch. Patient's significant other pushed for watchful waiting, but patient desired blood patch. Patient then stated she was still on antibiotics for sepsis. Patient is supposed to be on IV antibiotics for the next 10 days. She has staph in her urine, but blood cultures have been [id number]. However, on 09/05/22 her WBC was over 30K with some neutrophilia. Today is 12.5 with mild continued neutrophilia. Unknown, but elevated risk of epidural abscess was discussed with patient in setting of autologous blood injection into epidural space in setting of recent systemic infection and not having completed a a full course of antibiotics. Patient became more apprehensive of the procedure's risks with this information. Due to her apprehension, I offered a trial of aminophylline, ibuprofen, sumatripan, acetaminophen, and fluid bolus as a way to temporize the headache in the hopes that she can continue to do a few more days of antibiotics and wait for final blood culture results, before reconsidering blood patch. I did inform patient conservative measures are often not that impressive, but that we could try them to see if they help. I emphasized that if patient were to change her mind and decide to undergo blood patch in the next days or so, she could return and we would perform it at anytime for her. I also emphasized the importance of her being well enough to continue her IV antibiotic infusions. She assured me she felt well enough to get to the infusion location and that as long as she could lay down during the infusions, she would be able to complete her course of antibiotics.
[2022-09-08] MEDS: ibuprofen 200 mg Tablet PO (13:43)
[2022-09-08] MEDS: promethazine 25 mg/mL SDV 1 mL IM (13:44)
[2022-09-08] MEDS: SUMAtriptan 25 mg Tablet PO (13:44)
[2022-09-08 14:05] LABS: Partial Thromboplastin Time 30.8 SECONDS (23.9-36.7)
--- NOTE | 2022-09-08 14:17 | PC.NURSE ---
DR. ANNE CONSULTED WITH PT ABOUT BLOOD PATCH. PT REFUSED
--- NOTE | 2022-09-08 14:58 | PC.NURSE ---
PT TYLENOL DOSE LATE DUE TO PT REFUSING SECOND IV AND OTHER MEDICATION INFUSIONS
[2022-09-08] MEDS: acetaminophen 1,000 MG/100 ML PIGGYBACK 400 MG IV (15:12)
[2022-09-08] MEDS: cefTRIAXone 1,000 MG in sodium chloride 0.9% (plus) 50 ML 100 MG IV (15:41)
== END 2022-09-08 16:06 | disposition home or self-care (01) ==
PROVIDERS: Emergency Provider Family Medicine; PCP Family Medicine
DX: G96.09 Other spinal cerebrospinal fluid leak (principal); I10 Essential (primary) hypertension
CPT/HCPCS: 85610; 85730; 96365; 96367; 96372; 96375; 99284; J0131; J0280; J0696; J2550; J7030; J7050

== ENCOUNTER 2022-09-17 11:30 | Outpatient (RCR) | payer MEDICAID, SELFPAY ==
--- NOTE | 2022-09-08 11:40 | SUR.PREOP ---
1125 pt brought to room in ops per in wheelchair,head down and pt rubbing the back of her neck,c/o of severe pressure to neck and head,unable to lift head up at all,stated she has felt bad for 2 days since she had a spinal tap and has tried everything to get rid of it without any success,pt decided she needed to go to ER to get some relief and accompanied pt and to ER 1135 spoke with shahzad in pharmacy and medication mixed and unable to save and rx disposed of properly
[2022-09-09 11:35] VITALS: BP 123/79; PULSE 93; RESP 16; TEMP 36.8; O2SAT 100
[2022-09-09] MEDS: cefTRIAXone 1,000 MG in sodium chloride 0.9% (plus) 50 ML 100 MG IV (11:50)
--- NOTE | 2022-09-09 12:35 | PC.NURSE ---
saline lock flushed with 10ml saline. IV padded with 2x2 and wrapped with coban for comfort.
[2022-09-10] MEDS: cefTRIAXone 1,000 MG in sodium chloride 0.9% (plus) 50 ML 100 MG IV (11:08)
[2022-09-10 11:20] VITALS: BP 125/79; PULSE 89; RESP 18; TEMP 37.1; O2SAT 97
[2022-09-11] MEDS: cefTRIAXone 1,000 MG in sodium chloride 0.9% (plus) 50 ML 100 MG IV (11:43)
[2022-09-11 11:45] VITALS: BP 113/72; PULSE 76; RESP 18; TEMP 36.7; O2SAT 100
[2022-09-12] MEDS: cefTRIAXone 1,000 MG in sodium chloride 0.9% (plus) 50 ML 100 MG IV (11:32)
[2022-09-12 11:34] VITALS: BP 112/74; PULSE 89; RESP 18; TEMP 37.1; O2SAT 99
[2022-09-13] MEDS: cefTRIAXone 1,000 MG in sodium chloride 0.9% (plus) 50 ML 100 MG IV (11:34)
[2022-09-13 11:36] VITALS: BP 117/84; PULSE 79; RESP 18; TEMP 36.6; O2SAT 96
[2022-09-14] MEDS: cefTRIAXone 1,000 MG in sodium chloride 0.9% (plus) 50 ML 100 MG IV (11:33)
[2022-09-14 11:34] VITALS: BP 123/71; PULSE 92; RESP 18; TEMP 36.6; O2SAT 98
[2022-09-15] MEDS: cefTRIAXone 1,000 MG in sodium chloride 0.9% (plus) 50 ML 100 MG IV (11:34)
[2022-09-15 11:36] VITALS: BP 104/80; PULSE 81; RESP 18; TEMP 36.1; O2SAT 98
[2022-09-16 11:33] VITALS: BP 123/83; PULSE 87; RESP 18; TEMP 37; O2SAT 98
[2022-09-16] MEDS: cefTRIAXone 1,000 MG in sodium chloride 0.9% (plus) 50 ML 100 MG IV (11:35)
[2022-09-17] MEDS: cefTRIAXone 1,000 MG in sodium chloride 0.9% (plus) 50 ML 100 MG IV (11:36)
[2022-09-17 11:39] VITALS: BP 127/86; PULSE 90; RESP 18; TEMP 36.8; O2SAT 99
== END 2022-09-28 23:59 | disposition home or self-care (01) ==
LOC: GILAB 11:30
PROVIDERS: PCP Family Medicine; Visit Provider Family Medicine
DX: A41.9 Sepsis, unspecified organism (principal); R65.20 Severe sepsis without septic shock; N39.0 Urinary tract infection, site not specified
CPT/HCPCS: 96365; J0696

== ENCOUNTER 2022-12-23 11:49 | Inpatient (IN) | payer MEDICAID, SELFPAY ==
[2022-12-23] VITALS (8 sets, daily range): BP systolic 95–141; BP diastolic 57–74; PULSE 103–142; RESP 16–20; TEMP 36.6–39.2; O2SAT 94–99; BMI 19.8
--- NOTE | 2022-12-23 12:05 | XRR_ITS ---
PROCEDURE INFORMATION: Exam: XR Chest Exam date and time: 12/23/2022 12:40 PM Age: 27 years old Clinical indication: Cough and dyspnea and fever; Additional info: Dyspnea/cough/fever TECHNIQUE: Imaging protocol: Radiologic exam of the chest. Views: 1 view. COMPARISON: CT chest abdpel w/*[id number] 09/04/2022 4:38 PM FINDINGS: Lungs: Unremarkable. No consolidation. Pleural spaces: Unremarkable. No pleural effusion. No pneumothorax. Heart/Mediastinum: Unremarkable. No cardiomegaly. Bones/joints: Unremarkable. XR/XR chest 1V portable [id number] IMPRESSION: No acute findings.
[2022-12-23 12:17] LABS: Basophils # 0.1 10^3/uL (0.0-0.1); Basophils % 0.3 %; Eosinophils # 0.2 10^3/uL (0.0-0.8); Eosinophils % 1.2 %; Hematocrit 39.3 % (37.0-47.0); Lymphocytes % 5.2 %; Mean Corpuscular HGB Conc 33.1 g/dL (30.0-36.0); Mean Corpuscular Hemoglobin 29.6 pg (28.0-34.0); Mean Corpuscular Volume 89.5 fl (81-99); Neutrophils # 17.25 10^3/uL (1.8-7.7); Neutrophils % 87.6 %; Nucleated Red Blood Cells % 0 %; Platelet Count 314 10^3/cmm (130-400); Red Blood Count 4.39 10^6/uL (4.1-5.3); Red Cell Distribution Width 12.1 % (12.1-15.1); White Blood Count 19.7 10^3/uL (4.0-10.0)
--- NOTE | 2022-12-23 12:21 | ED_ITS ---
HPI - Nausea/Vomiting/Diarrhea General: Chief complaint: Nausea/Vomiting/Diarrhea Stated complaint: BP Low, Loc, N/V, Dizzy Time Seen by Provider: 12/23/22 12:00 Source: patient Mode of arrival: ambulatory History of Present Illness: 27-year-old female who presents to the emergency room with complaints of nausea and vomiting. [place] in the heat she has not been feeling well today felt like she may have gotten overheated yesterday she has been vomiting no diarrhea. She has a fever on arrival here no respiratory compromise no chest pain. She is hospitalized earlier this year with urosepsis and hypomagnesium [place]. MD elicited complaint: nausea and vomiting Onset (ago): hour(s) Description of vomiting: watery and bilious Description of diarrhea: semi-solid Associated nausea: Yes Associated abdominal pain: Yes Location of pain: Diffuse Severity: moderate Quality: cramping Exacerbating factors: none Relieving factors: none Associated symtoms: Reports anorexia, malaise, nausea and weakness; Denies altered mental status, anxiety, bloating, change in vision, chest pain, cough, diaphoresis, decreased urine output, dizziness, dysuria, epistaxis, fatigue, fecal incontinence, fevers/chills, headache(s), myalgias, numbness, palpitations, rash, short of breath, syncope, tenesmus or tinnitus Review of Systems Const: Reports: fever(s) and malaise; Denies: chills, fatigue or diaphoresis Eyes: Denies: change in vision ENMT: Denies: tinnitus or epistaxis Card: Denies: chest pain, palpitations or syncope Resp: Denies: dyspnea, productive cough or non-productive cough GI: Reports: abdominal pain, nausea, vomiting and diarrhea; Denies: bloating or fecal incontinence : Denies: dysuria, urinary frequency or urinary urgency Skin/Breast: Denies: rash or pruritus Neuro: Denies: headache(s) or dizziness Psych: Denies: anxiety PFSH ED PFSH: Medical History Benign hypertension Has chronic hypertension diagnosed in 2018 and is not currently on any medication. This is managed by her primary care provider Chest discomfort No pertinent past medical history Denies diabetes, asthma, seizures, DVT/PE PCP: Dr. Brown Shortness of breath Surgical History History of appendectomy Laparoscopic procedure performed in 2011 Family History Father Hypertension CAD (coronary artery disease) Stroke CVA in 30's Mother Crohn disease Denies family history of Colon cancer Ovarian cancer Diabetes Clotting disorder Dementia Heart disease Hyperlipidemia Chronic kidney disease (CKD) Breast cancer Suicide Anesthesia complication Bleeding disorder Lung disease Cancer Uterine cancer Thyroid condition Social History Smoking and tobacco status: never smoked Alcohol intake: never Substance/Drug Use: never Lives independently: Yes Marital status: Number of children: 3 Current occupational status: employed 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: Female Physical Exam Const: EXAM LIMITATIONS: no altered mental status GENERAL APPEARANCE: cooperative ORIENTATION/CONSCIOUSNESS: Yes awake, Yes oriented to person, Yes oriented to place and Yes oriented to time HENMT: COMMON NORMALS: normocephalic, atraumatic and hearing grossly normal bilaterally HEAD & SCALP: normocephalic and atraumatic Resp: COMMON NORMALS: normal respiratory effort, No retractions, No use of accessory muscles and clear to auscultation bilaterally AUSCULTATION: clear to auscultation bilaterally Cardio: COMMON NORMALS: regular rate, regular rhythm and No murmurs present (Cardio) RATE: regular rate RHYTHM: regular rhythm GI: COMMON NORMALS: Soft to palpation and No hepatosplenomegaly present AUSCULTATION: Yes normoactive bowel sounds PALPATION: Yes Soft to palpation, No Tenderness to palpation present (GI), No Guarding due to palpation present (GI) and Yes No hepatosplenomegaly present Extremity: COMMON NORMALS: normal to inspection, capillary refill normal, no clubbing, cyanosis or edema, no calf tenderness and no pedal edema Neuro: SENSORIUM/ORIENTATION: Yes oriented to person, Yes oriented to place and Yes oriented to time Skin: COMMON NORMALS: no rashes or lesions noted GENERAL SKIN EXAM: no rashes or lesions noted Course Vital Signs: Vital signs: Vital Signs Temperature 102.5 F H 12/23/22 12:01 Pulse Rate 135 H 12/23/22 14:00 Respiratory Rate 18 12/23/22 14:00 Blood Pressure 141/71 12/23/22 14:00 Pulse Oximetry 98 12/23/22 14:00 Oxygen Delivery Me thod Room Air 12/23/22 12:01 MDM - Nausea/Vomiting/Diarrhea Medical Decision Making CT abdomen and chest are negative no signs of cystitis on urine sample. Cultures done fluids given. Her 30 mL/kg bolus would have been 1200 we actually gave her 2000 which she is tolerating well. She is still little bit tachycardic. Discussed Dr. Ortega will admit to [facility] floor. Continue IV fluids and prophylactic antibiotics. Treat hypomagnesemia and hypokalemia per hospitalist. Medical Records I reviewed the patient's medical records. Lab Data I reviewed the patient's lab results. 12/23/22 12:10 12/23/22 12:10 Radiology Impressions Chest X-Ray 12/23/22 12:05 IMPRESSION: No acute findings. Abdomen/Pelvis CT 12/23/22 12:59 IMPRESSION: There are air-fluid levels in nondilated small bowel loops. This can be seen with a nonspecific enteritis. COMMENTS: Consistent with the [employer]'s Incidental Findings Committee white paper (J Am Laura Radiol 2018): Any incidental renal lesion less than 1 cm or classified as too small to characterize, or any incidental cystic renal lesion characterized as simple-appearing, is likely benign. No follow-up imaging is recommended for these lesions per consensus recommendations based on imaging criteria. Laboratory Results WBC 19.7 10^3/uL (4.0-10.0) H 12/23/22 12:10 RBC 4.39 10^6/uL (4.1-5.3) 12/23/22 12:10 Hgb 13.0 g/dL (11.5-15.3) 12/23/22 12:10 Hct 39.3 % (37.0-47.0) 12/23/22 12:10 MCV 89.5 fl (81-99) 12/23/22 12:10 MCH 29.6 pg (28.0-34.0) 12/23/22 12:10 MCHC 33.1 g/dL (30.0-36.0) 12/23/22 12:10 RDW 12.1 % (12.1-15.1) 12/23/22 12:10 Plt Count 314 10^3/cmm (130-400) 12/23/22 12:10 MPV 9.0 fL (7.4-10.4) 12/23/22 12:10 Neut % (Auto) 87.6 % 12/23/22 12:10 Lymph % (Auto) 5.2 % 12/23/22 12:10 [place] % (Auto) 5.0 % 12/23/22 12:10 Eos % (Auto) 1.2 % 12/23/22 12:10 Baso % (Auto) 0.3 % 12/23/22 12:10 Neut # (Auto) 17.25 10^3/uL (1.8-7.7) H 12/23/22 12:10 Lymph # (Auto) 1.0 10^3/uL (0.8-4.8) 12/23/22 12:10 [place] # (Auto) 1.0 10^3/uL (0.2-0.9) H 12/23/22 12:10 Eos # (Auto) 0.2 10^3/uL (0.0-0.8) 12/23/22 12:10 Baso # (Auto) 0.1 10^3/uL (0.0-0.1) 12/23/22 12:10 Nucleated RBC % (auto) 0 % 12/23/22 12:10 Nucleated RBCs # 0.0 /100WBC 12/23/22 12:10 Sodium 135 mmol/L (136-145) L 12/23/22 12:10 Potassium 3.4 mmol/L (3.5-5.1) L 12/23/22 12:10 Chloride 100 mmol/L (98-107) 12/23/22 12:10 Carbon Dioxide 23 mmol/L (22-29) 12/23/22 12:10 Anion Gap 15.4 (5-19) 12/23/22 12:10 BUN 13 mg/dL (6-20) 12/23/22 12:10 Creatinine 0.7 mg/dL (0.5-0.9) 12/23/22 12:10 GFR Calculation 100.4 mL/min (90-130) 12/23/22 12:10 Glucose 102 mg/dL (65-115) 12/23/22 12:10 Calculated Osmolality 280 mOsm/kg (285-295) L 12/23/22 12:10 Lactic Acid 2.2 mmol/L (0.5-2.2) 12/23/22 12:10 Calcium 8.8 mg/dL (8.5-10.5) 12/23/22 12:10 Magnesium 1.4 mg/dL (1.7-2.3) L 12/23/22 12:10 Total Bilirubin 0.6 mg/dL (0.15-1.2) 12/23/22 12:10 AST 13 U/L (0-32) 12/23/22 12:10 ALT 11 U/L (0-33) 12/23/22 12:10 Alkaline Phosphatase 75 U/L (35-105) 12/23/22 12:10 Total Protein 6.4 g/dL (6.6-8.7) L 12/23/22 12:10 Albumin 3.6 g/dL (3.5-5.2) 12/23/22 12:10 Globulin 2.8 g/dL (1.3-4.6) 12/23/22 12:10 Lipase 16 U/L (13-60) 12/23/22 12:10 HCG, Qual Negative (Negative) 12/23/22 12:10 Urine Color Colorless (Yellow) 12/23/22 13:52 Urine Appearance Clear (CLEAR) 12/23/22 13:52 Urine pH 9 (5-7) H 12/23/22 13:52 Ur Specific [place] 1.010 (1.005-1.030) 12/23/22 13:52 Urine Protein Neg (Negative) 12/23/22 13:52 Urine Glucose (UA) Norm (Normal) 12/23/22 13:52 Urine Ketones 1+ (Negative) H 12/23/22 13:52 Urine Blood Neg (Negative) 12/23/22 13:52 Urine Nitrate Negative (Negative) 12/23/22 13:52 Urine Bilirubin Neg (Negative) 12/23/22 13:52 Prot Sulfosalicylic Acd Negative (Negative) 12/23/22 13:52 Urine Urobilinogen Norm mg/dL (Negative) 12/23/22 13:52 Ur Leukocyte Esterase Negative (Negative) 12/23/22 13:52 Discharge Plan Discharge Patient Disposition: Admitted As Inpatient Admit Provider: Paul Ortega Clinical Impression: Sepsis, Hypokalemia, Hypomagnesemia Condition: Stable Coding Level of Care Code ED Technician Test Systems for Cristian Sutton
[2022-12-23 12:34] LABS: HCG, Serum Qual Negative (Negative)
[2022-12-23] MEDS: ondansetron 2 mg/ML SDV 2 mL 4 MG IVP ×2 (12:34→17:47)
[2022-12-23] MEDS: sodium chloride 0.9% 1,000 ML 999 ML IV ×3 (12:34→20:37)
[2022-12-23 12:38] LABS: Lactic Sepsis W/Reflex 2.2 mmol/L (0.5-2.2)
[2022-12-23 12:39] LABS: Alanine Aminotransferase 11 U/L (0-33); Albumin Level 3.6 g/dL (3.5-5.2); Alkaline Phosphatase 75 U/L (35-105); Anion Gap 15.4 (5-19); Aspartate Amino Transferase 13 U/L (0-32); Blood Urea Nitrogen 13 mg/dL (6-20); Calcium 8.8 mg/dL (8.5-10.5); Carbon Dioxide 23 mmol/L (22-29); Chloride 100 mmol/L (98-107); Creatinine Clr Calc Pharmacy 82.1208; Globulin 2.8 g/dL (1.3-4.6); Glomerular Filtration Rate 100.4 mL/min (90-130); Glucose 102 mg/dL (65-115); Magnesium 1.4 mg/dL (1.7-2.3); Osmolality Calculated 280 mOsm/kg (285-295); Potassium 3.4 mmol/L (3.5-5.1); Sodium 135 mmol/L (136-145); Total Bilirubin 0.6 mg/dL (0.15-1.2); Total Protein 6.4 g/dL (6.6-8.7)
--- NOTE | 2022-12-23 12:59 | CTR_ITS ---
PROCEDURE INFORMATION: Exam: CT Abdomen And Pelvis With Contrast Exam date and time: 12/23/2022 1:08 PM Age: 27 years old Clinical indication: Abdominal pain; Epigastric; Prior surgery; Surgery date: 6+ months; Surgery type: Appy; Additional info: Abd pain TECHNIQUE: Imaging protocol: Computed tomography of the abdomen and pelvis with contrast. Radiation optimization: All CT scans at this facility use at least one of these dose optimization techniques: automated exposure control; mA and/or kV adjustment per patient size (includes targeted exams where dose is matched to clinical indication); or iterative reconstruction. Contrast material: OMNI 350; Contrast volume: 80 ml; Contrast route: INTRAVENOUS (IV); REPORTING DATA: Count of CT and Cardiac NM exams in prior 12 months: This patient has received 6 known CTs and 0 known cardiac nuclear medicine studies in the 12 months prior to the current study. COMPARISON: CT chest abdpel w/*[id number] 09/04/2022 4:38 PM RADIATION DOSE METRICS: Total DLP (mGy-cm): 298.1 FINDINGS: Lungs: 3 mm well-circumscribed nodule at the right lung base is stable when compared to the prior study. Liver: Normal. No mass. Gallbladder and bile ducts: Normal. No calcified stones. No ductal dilation. Pancreas: Normal. No ductal dilation. Spleen: Normal. No splenomegaly. Adrenal glands: Normal. No mass. Kidneys and ureters: Subcentimeter bilateral renal cysts with benign features. Follow-up is not necessary. Stomach and bowel: There are air-fluid levels in nondilated small bowel loops. This can be seen with a nonspecific enteritis. Appendix: There has been an appendectomy. Intraperitoneal space: Unremarkable. No free air. No significant fluid collection. Vasculature: Unremarkable. No abdominal aortic aneurysm. Lymph nodes: Unremarkable. No enlarged lymph nodes. Urinary bladder: Unremarkable as visualized. Reproductive: Bilateral ovarian follicles. Bones/joints: Unremarkable. No acute fracture. Soft tissues: Unremarkable. CT/CT abdomen pelvis w con* [id number] IMPRESSION: There are air-fluid levels in nondilated small bowel loops. This can be seen with a nonspecific enteritis. COMMENTS: Consistent with the [place] [employer]'s Incidental Findings Committee white paper (J Am Laura Radiol 2018): Any incidental renal lesion less than 1 cm or classified as too small to characterize, or any incidental cystic renal lesion characterized as simple-appearing, is likely benign. No follow-up imaging is recommended for these lesions per consensus recommendations based on imaging criteria.
[2022-12-23 13:01] LABS: Reflex Lactate Order REFLEX LACTIC ORDERD
[2022-12-23] MEDS: iohexol 350 mg/mL 500 mL Btl (per mL) IV ×2 (13:20→18:01)
[2022-12-23 13:27] LABS: Lipase 16 U/L (13-60)
[2022-12-23] MEDS: levofloxacin-dextrose 5 % 750 MG/150 ML PREMIX 100 MG IV (13:34)
--- NOTE | 2022-12-23 13:34 | PC.PHAR ---
pt states she takes care of her own medications-pt states changed her metoprolol tartrate 25mg to 12.5mg bid prn-ext shows 25mg bid filled 12/17/22 30d/s-pt states not been taking since the dr changed to prn-
[2022-12-23 14:16] LABS: Add Urine Microscopic? NO; Charge for UA Resulting for Rev
[2022-12-23 14:31] LABS: Bilirubin Urine Neg (Negative); Blood Urine Neg (Negative); Glucose Urine UA Norm (Normal); Ketones Urine 1+ (Negative); Leukocyte Esterase Urine Negative (Negative); Nitrate Urine Negative (Negative); Protein Urine Neg (Negative); Sulfosalicylic Acid Urine Negative (Negative); Urine Appearance Clear (CLEAR); Urine Color Colorless (Yellow); Urobilinogen Urine Norm (Negative); pH Urine 9 (5-7)
--- NOTE | 2022-12-23 14:35 | ECG_ITS ---
[facility] Test Date: 2022-12-23 Pat Name: Rebekah Wagner Department: Room: 256 Gender: Female Safety Specialist: : 1995 Requested By: Adelfo Guzman Order Number: [id number] Mica MD: Tim Da Silva M.D. Measurements Intervals [place] Rate: 133 P: 65 ID: [id number] QRS: 77 QRSD: 70 T: 41 QT: 279 QTc: 416 Interpretive Statements SINUS TACHYCARDIA WITH SHORT ID INTERVAL NONSPECIFIC ST & T-WAVE ABNORMALITY Compared to ECG 09/05/2022 02:22:40 Short ID interval now present T-wave abnormality now present Sinus rhythm no longer present Electronically Signed On 12-23-2022 15:47:29 CDT by Tim Da Silva M.D. [id number]
--- NOTE | 2022-12-23 14:49 | CTR_ITS ---
PROCEDURE INFORMATION: Exam: CT Maxillofacial Without Contrast Exam date and time: 12/23/2022 2:52 PM Age: 27 years old Clinical indication: Other: Nasal drainage, sepsis TECHNIQUE: Imaging protocol: Computed tomography of the face without contrast. Radiation optimization: All CT scans at this facility use at least one of these dose optimization techniques: automated exposure control; mA and/or kV adjustment per patient size (includes targeted exams where dose is matched to clinical indication); or iterative reconstruction. REPORTING DATA: Count of CT and Cardiac NM exams in prior 12 months: This patient has received 6 known CTs and 0 known cardiac nuclear medicine studies in the 12 months prior to the current study. COMPARISON: CT head wo con* [id number] 09/04/2022 7:10 PM RADIATION DOSE METRICS: Total DLP (mGy-cm): 440.78 FINDINGS: Orbital cavities: Orbits are normal. Globes are unremarkable. Bones/joints: No acute fracture. Paranasal sinuses: Mild mucosal thickening of the ethmoid air cells and maxillary sinuses. Bilateral ostiomeatal complexes are patent. Soft tissues: Unremarkable. CT/CT sinus wo con* [id number] IMPRESSION: There is mild mucosal thickening of the ethmoid air cells and maxillary sinuses.
--- NOTE | 2022-12-23 15:25 | PM.HP ---
Providers/Chief Complaint Admitting Physician: Paul Ortega Primary Care Provider: Juan Alberto Sharma MD Chief Complaint: BP Low, Loc, N/V, Dizzy History of Present Illness 27-year-old lady came in for evaluation due to nausea vomiting, malaise, in ER with fever 1-2.5, leukocytosis 19.7, sinus tachycardia 140s. Back in August she was hospitalized with septic shock, white count up into the 30s initially, sinus tachycardia, presentation initially shock, which had improved. At that time work-up had revealed urine culture positive for Staph aureus for which she had completed additional 7 days of IV antibiotic after discharge. Admission also had headache, posterior neck pain, was assessed by lumbar puncture which was aseptic, no growth on culture. Blood cultures were negative. Autoimmune DIOMEDES panel negative. Current symptoms started last night with recurrent vomiting, malaise, epigastric pain. Denies any hematemesis, has had no diarrhea, melena or hematochezia. Denies urinary symptoms. She denies any recent ibuprofen use. Does not drink any alcohol. Earlier she has [place] most [place] She sustained mild sunburn, with mild erythema on upper outer arms. May have swallowed little water. No headache, no neck pain or stiffness, no ear discomfort/pain or drainage, no toothache. Has had a runny nose. Throat is mildly sore, she thinks perhaps after vomiting. No cough or shortness of breath no phlegm production. Denies any urinary symptoms, no hematuria, denies any retained tampon. Denies any other rash. Did not notice any tick bites. No recreational drug use, does not smoke or drink alcohol. was sick with a flulike illness 2 weeks ago but resolved within a day. She is noted to have leukocytosis 19.7, tachycardia 140s, fever 102.5F. Neutrophilia 70.25. Minimal monocytosis 1. No significant eosinophilia. Lipase is not elevated. Renal and liver parameters WNL. Sodium 135, potassium 3.4. Magnesium 1.4. Chest x-ray without acute findings. CT abdomen pelvis with air-fluid levels in nondilated small bowel loops. Can be seen with a nonspecific enteritis. UA obtained, 1+ ketones. Otherwise unremarkable. In ER she received 1 L fluid bolus, Zofran, Levaquin. Review of Systems Const: Reports: fever(s) and malaise ENMT: Denies: throat pain, oral sores or ear or mastoid pain Card: Denies: chest pain, edema, pre-syncope or dyspnea on exertion Resp: Denies: dyspnea, productive cough, change in phlegm color or hemoptysis GI: Reports: abdominal pain, nausea and vomiting; Denies: diarrhea, constipation, hematochezia or melena : Denies: flank pain, urinary frequency or hematuria Musc: Denies: back pain, joint swelling or joint redness Skin/Breast: Reports: erythema (Mild sunburn on upper outer arms/shoulders); Denies: rash or new lesions Neuro: Denies: headache(s), numbness in extremities, weakness in extremities, dizziness, confusion or seizure-like activity Medications/Allergies Home Medications Medication Instructions Recorded Confirmed Last Taken Type ibuprofen 200 mg tablet 800 mg PO Q8H PRN Pain 09/04/22 12/23/22 09/09/22 10:30 History metoprolol tartrate 25 mg tablet 12.5 mg PO BID PRN blood 09/19/22 12/23/22 Unknown History pressure/heartrate Allergies Allergy/AdvReac Type Severity Reaction Status Date / Time No Known Allergies Allergy Verified 12/23/22 13:31 PFSH Acute PFSH: Medical History Benign hypertension Has chronic hypertension diagnosed in 2018 and is not currently on any medication. This is managed by her primary care provider Chest discomfort No pertinent past medical history Denies diabetes, asthma, seizures, DVT/PE PCP: Dr. Brown Shortness of breath Surgical History History of appendectomy Laparoscopic procedure performed in 2011 Family History Father Hypertension CAD (coronary artery disease) Stroke CVA in 30's Mother Crohn disease Denies family history of Colon cancer Ovarian cancer Diabetes Clotting disorder Dementia Heart disease Hyperlipidemia Chronic kidney disease (CKD) Breast cancer Suicide Anesthesia complication Bleeding disorder Lung disease Cancer Uterine cancer Thyroid condition Social History Smoking and tobacco status: never smoked Alcohol intake: never Substance/Drug Use: never Lives independently: Yes Marital status: Number of children: 3 Current occupational status: employed Current occupation: [employer] Current gender identity: Female Vitals/I&O/Wt Last Vital Signs Temp 102.5 F H 12/23/22 12:01 Pulse 142 H 12/23/22 14:50 Resp 20 H 12/23/22 14:50 BP 129/69 12/23/22 14:50 Pulse Ox 98 12/23/22 14:50 O2 Del Method Room Air 12/23/22 12:01 12/23/22 12/23/22 12/23/22 06:59 14:59 22:59 Intake Total 1000 / 1000 1150 / 2150 Balance 1000 / 1000 1150 / 2150 Weight last 48 hrs Weight 43.091 kg Physical Exam Narrative: Accompanied by her [id number]. Const: COMMON NORMALS: patient oriented x3 and alert GENERAL APPEARANCE: cooperative ORIENTATION/CONSCIOUSNESS: Yes awake HENMT: COMMON NORMALS: oropharynx normal Neck/C-Spine: COMMON NORMALS: no JVD Resp: COMMON NORMALS: normal respiratory effort and clear to auscultation bilaterally AUSCULTATION: clear to auscultation bilaterally Cardio: COMMON NORMALS: no JVD, regular rhythm, S1 normal heart sound present, S2 normal heart sound present and No murmurs present (Cardio) RATE: regular rate and tachycardic RHYTHM: regular rhythm HEART SOUNDS: S1 normal heart sound present and S2 normal heart sound present GI: COMMON NORMALS: Normal to inspection, nondistended, normoactive bowel sounds present, Soft to palpation and non-tender PALPATION: Yes Soft to palpation Extremity: COMMON NORMALS: no joint enlargement and no pedal edema Neuro: COMMON NORMALS: patient oriented x3 and moves all extremities SENSORIUM/ORIENTATION: Yes alert Skin: COMMON NORMALS: no rashes or lesions noted GENERAL SKIN EXAM: no rashes or lesions noted Data 12/23/22 12:10 12/23/22 12:10 Micro: Microbiology 12/23/22 12:17 Blood Culture - Preliminary Blood SPECIMEN COLLECTED 12/23/22 12:20 Blood Culture - Preliminary Blood SPECIMEN COLLECTED A&P Assessment and plan (1) Sepsis: Sepsis of unclear origin at current time, has been having nausea and vomiting, noted to some possible nonspecific enteritis on CT. Was having epigastric abdominal pain. Vomiting. So far no further vomiting, subjectively feeling a bit better after Zofran, 1 L bolus. Started on Levaquin in ER. We will continue Levaquin for now, as she did have staphylococcal UTI of unclear etiology with hospitalization back in August. For now also add vancomycin. Having a runny nose, check sinus CT. Spent a day outdoors yesterday swimming in a [place]. We will add doxycycline for now, check tick panel. States may be had swallowed small mount of water while swimming in a [place]. Enteritis may be related to that. So far no diarrhea, but discussed with her to let us know in case develops diarrhea to collect a stool sample. Additionally will assess viral panel, does have mild sore throat, possibly secondary to vomiting, but will assess for rapid strep. Monospot. Chest x-ray is clear. No respiratory symptoms. Currently no meningeal signs. No signs of pancreatitis. Urine currently not suggestive of infection. We will request to culture urine nonetheless. Blood cultures have been obtained, follow-up. Does have some sunburn on her arms. No malar rash. Autoimmune DIOMEDES panel last hospitalization was negative. We will check CRP, ESR. Spent most of the day History, feels perhaps got somewhat overheated. Possibly heat related illness component. We will check CK as well. Other lower likelihood but will check urine porphobilinogen for lower likelihood of AIP. Currently noted in sepsis, without endorgan damage. Not in shock. Lactate normal, maintaining blood pressure. Per discussion with ER physician for now hospitalization will start on medical surgical floor. In case of any deterioration condition moved to ICU. Given significant tachycardia continue cardiac monitoring. Additionally likely contraction, no oral intake and vomiting, continue LR infusion for now at 150 mill per hour. (2) Nausea and vomiting: Possibly gastroenteritis as above. PPI twice daily IV. Zofran as needed. NPO, sips chips and meds for now. Lipase noted negative. No EtOH use. States has not taken ibuprofen in several weeks. Would consider discontinuation at discharge. (3) Hypokalemia: Replace hypomagnesemia, replace potassium. Follow-up chemistry and magnesium. (4) Hypomagnesemia: Replace hypomagnesemia, follow-up magnesium. (5) Abdominal pain: Epigastric pain. Minimal abdominal wall tenderness, like after vomiting. PPI twice daily. Plan HTN: Mild, episodic hypertension, takes metoprolol as needed. States has not taken it in several weeks. Discussed with ER physician. ER documentation reviewed. PCP documentation reviewed. ID documentation from last visit reviewed. Attestations Medical Necessity Statement*: Admission of over 2 midnights anticipated for assessment management of sepsis of unclear etiology, at risk of deterioration with recent septic shock, recent complicated UTI with Staphylococcus aureus of unclear etiology. Diagnoses Sepsis A41.9 Nausea and vomiting R11.2 Hypokalemia E87.6 Hypomagnesemia E83.42 Abdominal pain R10.9
[2022-12-23 15:26] LABS: Lactic Acid level (Lactate) 1.1 mmol/L (0.5-2.2)
[2022-12-23] MEDS: lactated ringers 1,000 ML 150 ML IV ×3 (15:33→23:23)
[2022-12-23] MEDS: pantoprazole 40 mg SDV IVP (15:33)
--- NOTE | 2022-12-23 15:38 | PC.PHAR ---
@[email or web address] VANCOMYCIN: 750 MG Q12H SHOULD YIELD TROUGH 16.08. LEVEL ENTERED BEFORE 4TH DOSE 12/25@5185
--- NOTE | 2022-12-23 15:48 | CTR_ITS ---
PROCEDURE INFORMATION: Exam: CTA Chest With Contrast Exam date and time: 12/23/2022 5:56 PM Age: 27 years old Clinical indication: Other: Tachycardia/hypotensive; Patient HX: Tachycardic with hypotension; Additional info: Assess for pe/dissection TECHNIQUE: Imaging protocol: Computed tomographic angiography of the chest with contrast. Exam focused on the arteries. 3D rendering (Not supervised by radiologist): MIP and/or 3D reconstructed images were created by the technologist. Radiation optimization: All CT scans at this facility use at least one of these dose optimization techniques: automated exposure control; mA and/or kV adjustment per patient size (includes targeted exams where dose is matched to clinical indication); or iterative reconstruction. Contrast material: OMNI 350; Contrast volume: 55 ml; Contrast route: INTRAVENOUS (IV); REPORTING DATA: Count of CT and Cardiac NM exams in prior 12 months: This patient has received 6 known CTs and 0 known cardiac nuclear medicine studies in the 12 months prior to the current study. COMPARISON: CT chest abdpel w/*[id number] 09/04/2022 4:38 PM RADIATION DOSE METRICS: Total DLP (mGy-cm): 141.4 FINDINGS: Pulmonary arteries: Normal. No pulmonary emboli. Aorta: Unremarkable. No aortic aneurysm. No aortic dissection. Lungs: Unremarkable. No consolidation. No masses. Pleural spaces: Unremarkable. No pneumothorax. No pleural effusion. Heart: Unremarkable. No cardiomegaly. No pericardial effusion. Lymph nodes: Unremarkable. No enlarged lymph nodes. Bones/joints: Unremarkable. No acute fracture. Soft tissues: Unremarkable. CT/CT angio chest PE protcl [id number] IMPRESSION: No acute findings.
[2022-12-23 15:49] LABS: Monoscreen Negative (Negative)
[2022-12-23 15:55] LABS: Creatine Phosphokinase 61 U/L (26-192)
[2022-12-23 16:04] LABS: Erythrocyte Sedimentation Rate 15 mm/hr (0-15)
[2022-12-23] MEDS: magnesium sulfate premix 4 GM/100 ML PREMIX IV (16:18)
[2022-12-23 16:42] LABS: Rapid Strep A Test Negative (Negative)
--- NOTE | 2022-12-23 17:39 | PC.NURSE ---
Called Dr. Ortega for antibiotics running and patient being a hard stick. Dr. Ortega stated to run magnesium first, Vancomycin second, doxycycline third then run potassium. Talked to Pharmacist and times were changed accordingly.
[2022-12-23] MEDS: vancomycin 750 MG in sodium chloride 0.9% 250 ML 250 MG IV (18:15)
[2022-12-23] MEDS: enoxaparin 30 mg/0.3 mL Syringe SUBCUT (18:15)
[2022-12-23] MEDS: acetaminophen 325 mg Tablet 650 MG PO (18:19)
[2022-12-23 18:20] LABS: Adenovirus Not Detected (NOT DETECT); Chlamydia Pneumoniae Not Detected (NOT DETECT); Coronavirus 229E,HKU1,NL63,OC4 Not Detected (NOT DETECT); Human Metapneumovirus Not Detected (NOT DETECT); Human Rhinovirus/Enterovirus Not Detected (NOT DETECT); Influenza A Not Detected (NOT DETECT); Influenza A H1 Not Detected (NOT DETECT); Influenza A H1-2009 Not Detected (NOT DETECT); Influenza A H3 Not Detected (NOT DETECT); Influenza B Not Detected (NOT DETECT); Mycoplasma Pneumoniae Not Detected (NOT DETECT); Parainfluenza Virus Type 1 Not Detected (NOT DETECT); Parainfluenza Virus Type 2 Not Detected (NOT DETECT); Parainfluenza Virus Type 3 Not Detected (NOT DETECT); Parainfluenza Virus Type 4 Not Detected (NOT DETECT); Respiratory Syncytial Virus A Not Detected (NOT DETECT); Respiratory Syncytial Virus B Not Detected (NOT DETECT); SARS-COV-2 Not Detected (NOT DETECT)
[2022-12-23] MEDS: doxycycline 100 MG in sodium chloride 0.9% (plus) 100 ML IV (19:52)
[2022-12-23] MEDS: ibuprofen 200 mg Tablet 400 MG PO (20:31)
[2022-12-23] MEDS: metroNIDAZOLE IV 500 MG/100 ML PREMIX 100 MG IV (21:27)
[2022-12-23 21:37] LABS: Anion Gap 19.6 (5-19); Blood Urea Nitrogen 12 mg/dL (6-20); Calcium 8.8 mg/dL (8.5-10.5); Carbon Dioxide 21 mmol/L (22-29); Chloride 101 mmol/L (98-107); Creatinine Clr Calc Pharmacy 82.1208; Glomerular Filtration Rate 100.4 mL/min (90-130); Glucose 81 mg/dL (65-115); Osmolality Calculated 285 mOsm/kg (285-295); Potassium 3.6 mmol/L (3.5-5.1); Sodium 138 mmol/L (136-145)
[2022-12-23 23:02] LABS: Anion Gap 12.9 (5-19); Blood Urea Nitrogen 7 mg/dL (6-20); Carbon Dioxide 20 mmol/L (22-29); Chloride 109 mmol/L (98-107); Glucose 98 mg/dL (65-115); Osmolality Calculated 284 mOsm/kg (285-295); Potassium 3.9 mmol/L (3.5-5.1); Sodium 138 mmol/L (136-145)
[2022-12-23] MEDS: potassium chloride ER 20 mEq Tablet PO (23:23)
[2022-12-24] VITALS (8 sets, daily range): BP systolic 95–117; BP diastolic 57–75; PULSE 80–100; RESP 16–18; TEMP 36.2–37; O2SAT 97–98
[2022-12-24] MEDS: pantoprazole 40 mg SDV IVP ×2 (03:50→17:01)
[2022-12-24] MEDS: metroNIDAZOLE IV 500 MG/100 ML PREMIX 100 MG IV (04:15)
[2022-12-24] MEDS: vancomycin 750 MG in sodium chloride 0.9% 250 ML 250 MG IV ×2 (04:53→17:01)
[2022-12-24 05:31] LABS: Basophils # 0.1 10^3/uL (0.0-0.1); Basophils % 0.6 %; Eosinophils # 0.7 10^3/uL (0.0-0.8); Eosinophils % 3.9 %; Hematocrit 34.3 % (37.0-47.0); Lymphocytes # 1.8 10^3/uL (0.8-4.8); Lymphocytes % 9.4 %; Mean Corpuscular HGB Conc 32.1 g/dL (30.0-36.0); Mean Corpuscular Hemoglobin 30.2 pg (28.0-34.0); Mean Corpuscular Volume 94.2 fl (81-99); Mean Platelet Volume 9.1 fL (7.4-10.4); Monocytes # 0.6 10^3/uL (0.2-0.9); Monocytes % 3.1 %; Neutrophils # 15.41 10^3/uL (1.8-7.7); Neutrophils % 82.3 %; Nucleated Red Blood Cells % 0 %; Platelet Count 242 10^3/cmm (130-400); Red Blood Count 3.64 10^6/uL (4.1-5.3); Red Cell Distribution Width 12.5 % (12.1-15.1); White Blood Count 18.7 10^3/uL (4.0-10.0)
[2022-12-24 06:01] LABS: Alanine Aminotransferase 7 U/L (0-33); Albumin Level 2.4 g/dL (3.5-5.2); Alkaline Phosphatase 62 U/L (35-105); Anion Gap 14.4 (5-19); Aspartate Amino Transferase 9 U/L (0-32); Blood Urea Nitrogen 9 mg/dL (6-20); Calcium 7.3 mg/dL (8.5-10.5); Carbon Dioxide 18 mmol/L (22-29); Chloride 108 mmol/L (98-107); Globulin 2.4 g/dL (1.3-4.6); Glomerular Filtration Rate 191.5 mL/min (90-130); Glucose 70 mg/dL (65-115); Magnesium 2.2 mg/dL (1.7-2.3); Osmolality Calculated 279 mOsm/kg (285-295); Potassium 4.4 mmol/L (3.5-5.1); Sodium 136 mmol/L (136-145); Total Bilirubin 0.5 mg/dL (0.15-1.2); Total Protein 4.8 g/dL (6.6-8.7)
[2022-12-24] MEDS: lactated ringers 1,000 ML 150 ML IV (06:27)
--- NOTE | 2022-12-24 12:19 | USCV_ITS ---
Rebekah Wagner Age: 27 Gender: F : 1995 Exam Date: 12/24/2022 12:54 Ordering Phys: Usha Bangura MD Technologist: Andrea Steele [place] [facility] [place]ication: ? veg BP: 120 / 75 HR: 92 Rhythm: Sinus Technical Quality: Adequate MEASUREMENTS (Male / Female) Normal Values 2D ECHO LV Diastolic Diameter PLAX 3.4 cm 4.2 - 5.9 / 3.9 - 5.3 cm LV Systolic Diameter PLAX 1.8 cm IVS Diastolic Thickness 0.9 cm 0.6 - 1.0 / 0.6 - 0.9 cm IVS Systolic Thickness 1.1 cm LVPW Diastolic Thickness 0.8 cm 0.6 - 1.0 / 0.6 - 0.9 cm LVPW Systolic Thickness 1.0 cm LVOT Diameter 2.0 cm LV Ejection Fraction 2D Teich 79.5 % LV Ejection Fraction MOD 2C 72.3 % LV Ejection Fraction 2C AL 72.6 % LA Diameter 2.8 cm IVC Diameter 1.4 cm M-MODE Aortic Annulus Diameter 2.5 cm LA Ao Ratio MM 1.3 MV E Point Septal Separation 0.5 cm DOPPLER AV Peak Velocity 129.0 cm/s LVOT Peak Velocity 101.0 cm/s AV Area Cont Eq vti 2.0 cm squared AV Area Cont Eq pk 2.5 cm squared MV Area PHT 5.0 cm squared Mitral E to A Ratio 1.4 MV E' Velocity 56.5 cm/s Mitral E to MV E' Ratio 6.2 Mitral E to LV E' Lateral Ratio 6.1 Mitral E to LV E' Septal Ratio 6.3 TR Peak Velocity 126.3 cm/s TR Peak Gradient 6.4 mmHg TV Peak E Velocity 89.0 cm/s Right Atrial Pressure 3.0 mmHg Pulmonary Artery Systolic Pressu 9.4 mmHg FINDINGS Left Ventricle Normal left ventricular size, systolic function and wall thickness, with no regional wall motion abnormalities. No regional wall motion abnormalities. Right Ventricle The right ventricle is normal in size and function. Right Atrium The right atrium is normal in size. Left Atrium The left atrium is normal in size. Mitral Valve No gross abnormalities noted Aortic Valve No gross abnormalities noted Tricuspid Valve No gross abnormalities noted Pulmonic Valve No gross abnormalities noted Pericardium No pericardial effusion. Aorta Normal size aortic root and proximal ascending aorta. IVC Normal inferior vena cava. CONCLUSIONS Normal LV size and ejection fraction of 79 %. No gross wall motion normalities. No significant stenotic or regurgitant lesions. Normal cardiac chamber sizes. No significant pericardial effusion No similar previous studies are available for comparison. Dr Saúl Lee MD FAC (Electronically Signed) Final Date: 24 December 2022 18:31 S
[2022-12-24] MEDS: cefTRIAXone 1,000 MG in sodium chloride 0.9% (plus) 50 ML 100 MG IV (13:33)
--- NOTE | 2022-12-24 16:24 | P.PN_ITS ---
Subjective Subjective: Overnight Tmax 100.7 Fahrenheit. Nausea and vomiting is improving today. Clinically appears to be dehydrated. Did not tolerate IV doxycycline due to burning in the veins. Medications: Reviewed: Yes Vitals/I&O/Wt Last Vital Signs Temp 98.5 F 12/24/22 15:47 Pulse 95 12/24/22 15:47 Resp 18 12/24/22 15:47 BP 109/67 12/24/22 15:47 Pulse Ox 98 12/24/22 15:47 O2 Del Method Room Air 12/24/22 15:47 12/24/22 12/24/22 12/24/22 06:59 14:59 22:59 Intake Total 2350 / 6407.5 1560 / 1560 Output Total 500 / 500 Balance 2350 / 6407.5 1060 / 1060 Weight last 48 hrs Weight 51.347 kg Weight 43.091 kg Physical Exam Narrative: General: No acute distress, AO x3 HEENT: PERRLA, pupils bilaterally equal and reactive, pallors not present Chest: Normal vesicular breath sounds, no added sounds, equal good air entry bilaterally CVS: S1-S2 regular, no murmurs, no tachycardia, no gallops, no rubs Abdomen: Soft, nontender, no organomegaly, bowel sounds present Neuro: No focal deficits, no facial deformity, AO x3, power 5/5 in all limbs Data 12/24/22 04:53 12/24/22 04:53 Micro: Microbiology 12/23/22 12:17 Blood Culture - Preliminary Blood NEGATIVE TO DATE 12/23/22 12:20 Blood Culture - Preliminary Blood NEGATIVE TO DATE 12/23/22 13:52 Urine Culture - Preliminary Urine,Clean Catch A&P Assessment and plan (1) Sepsis: Sepsis of unclear origin at current time, has been having nausea and vomiting, noted to some possible nonspecific enteritis on CT. Was having epigastric abdominal pain. Vomiting. So far no further vomiting, subjectively feeling a bit better after Zofran, 1 L bolus. Currently she is on levofloxacin, metronidazole and doxycycline Will DC levofloxacin and change treatment to ceftriaxone 1 g IV every 24 hours due to concern for group A strep. Patient has a past history of being colonized with group A strep, currently is complaining of a sore throat, no cough, recently was sick with URI type symptoms. Continue vancomycin while awaiting blood cultures given past history of Staph aureus UTI. On previous admission in August, Staph aureus appeared to have been in order organism to be isolated from a urine culture in the absence of any other structural abnormalities or catheterization. Blood cultures were serially negative. However given the association of Staph aureus bacteremia with Staph aureus isolated from the urinary stream, will order additional set of blood cultures with a.m. labs. Given recurrent symptoms of fever ongoing every 2 to 3 months since late last year, will repeat an echocardiogram to assess for any possible endocarditis. In August 2022 TTE was essentially negative for any vegetations. Would repeat one now to assess for any interim developments. Given recurrent fevers, respiratory symptoms, enteritis and GI symptoms, check CMV PCR and EBV PCR, though lower probability of CMV or EBV viremia as a cause of her symptoms in an otherwise immunocompetent patient. check tularemia DA. Ch xavier Brucella and bartonella serology. CT of the chest abdomen and pelvis overall without any other localizing source except for nonspecific enteritis. Possibility of viral gastroenteritis still remains. Alternate differential includes heatstroke Negative respiratory viral panel pending tick panel negative HIV, HEP screening from 08/2022 Continue IV hydration with normal saline at 75 cc an hour (2) Nausea and vomiting: (3) Hypokalemia: Replace hypomagnesemia, replace potassium. Follow-up chemistry and magnesium. (4) Hypomagnesemia: Replace hypomagnesemia, follow-up magnesium. (5) Abdominal pain: Epigastric pain. Minimal abdominal wall tenderness, like after vomiting. PPI twice daily. Attestations Medical Necessity Statement*: persisting leukocytosis and fever, sepsis source under evaluation Coding Level of Care Code Acute Code for [facility] Diagnoses Sepsis A41.9 Nausea and vomiting R11.2 Hypokalemia E87.6 Hypomagnesemia E83.42 Abdominal pain R10.9
[2022-12-24] MEDS: doxycycline 100 mg Tablet PO (17:00)
[2022-12-24] MEDS: enoxaparin 30 mg/0.3 mL Syringe SUBCUT (17:01)
[2022-12-24] MEDS: lactated ringers 1,000 ML 75 ML IV (21:53)
[2022-12-25] VITALS: BP 101/63; PULSE 94; RESP 16; TEMP 36.6; O2SAT 97
[2022-12-25 04:00] VITALS: BP 108/69; PULSE 88; RESP 18; TEMP 36.6; O2SAT 97
[2022-12-25 04:12] LABS: Basophils % 0.5 %; Eosinophils # 0.9 10^3/uL (0.0-0.8); Hematocrit 34.8 % (37.0-47.0); Hemoglobin 11.2 g/dL (11.5-15.3); Lymphocytes # 2.1 10^3/uL (0.8-4.8); Lymphocytes % 25.2 %; Mean Corpuscular HGB Conc 32.2 g/dL (30.0-36.0); Mean Corpuscular Hemoglobin 29.6 pg (28.0-34.0); Mean Corpuscular Volume 92.1 fl (81-99); Mean Platelet Volume 9.2 fL (7.4-10.4); Monocytes # 0.4 10^3/uL (0.2-0.9); Monocytes % 5.3 %; Neutrophils # 4.77 10^3/uL (1.8-7.7); Neutrophils % 57.3 %; Nucleated Red Blood Cells % 0 %; Platelet Count 312 10^3/cmm (130-400); Red Blood Count 3.78 10^6/uL (4.1-5.3); Red Cell Distribution Width 12.5 % (12.1-15.1); White Blood Count 8.3 10^3/uL (4.0-10.0)
[2022-12-25 04:34] LABS: Alanine Aminotransferase 6 U/L (0-33); Albumin Level 2.9 g/dL (3.5-5.2); Alkaline Phosphatase 67 U/L (35-105); Anion Gap 10.8 (5-19); Aspartate Amino Transferase 9 U/L (0-32); Blood Urea Nitrogen 8 mg/dL (6-20); Carbon Dioxide 25 mmol/L (22-29); Chloride 108 mmol/L (98-107); Creatinine Clr Calc Pharmacy 136.9966; Globulin 2.7 g/dL (1.3-4.6); Glucose 95 mg/dL (65-115); Magnesium 1.9 mg/dL (1.7-2.3); Osmolality Calculated 288 mOsm/kg (285-295); Potassium 3.8 mmol/L (3.5-5.1); Sodium 140 mmol/L (136-145); Total Bilirubin 0.2 mg/dL (0.15-1.2); Total Protein 5.6 g/dL (6.6-8.7)
[2022-12-25 04:35] LABS: Vancomycin Trough 4.3 ug/mL (10-15)
[2022-12-25] MEDS: pantoprazole 40 mg SDV IVP (05:05)
[2022-12-25] MEDS: vancomycin 1,000 MG in sodium chloride 0.9% 250 ML 250 MG IV (05:09)
[2022-12-25 06:00] VITALS: PULSE 79
[2022-12-25 07:47] VITALS: BP 109/65; PULSE 91; RESP 15; TEMP 37; O2SAT 98
[2022-12-25] MEDS: doxycycline 100 mg Tablet PO (08:54)
[2022-12-25 11:29] VITALS: BP 122/72; PULSE 91; RESP 16; TEMP 36.8; O2SAT 98
--- NOTE | 2022-12-25 11:38 | PM.DCS ---
Discharge Providers Date of Admission: 12/23/22 15:09 Date of Discharge: December 25, 2022 Attending Provider at Admission: Paul Ortega Attending Provider at Discharge: Usha Bangura MD Primary Care Provider: Juan Alberto Sharma MD Diagnoses at Discharge Discharge Diagnosis (1) Sepsis: Status: Acute (2) Nausea and vomiting: Status: Acute (3) Hypokalemia: Status: Acute (4) Hypomagnesemia: Status: Acute (5) Abdominal pain: Status: Acute Reason for Visit Reason for Visit: BP Low, Loc, N/V, Dizzy Hospital Course Hospital Course Rebekah is a 27-year-old lady who came to the emergency room for evaluation of nausea vomiting malaise fever of 102.5 along with leukocytosis of nearly 20,000. She had sinus tachycardia initially upon arrival in the 140s. She has a history of being admitted to the hospital in August 2022 for septic shock at which time work-up had shown urine culture positive for Staph aureus with negative blood cultures. She had been treated with 2 weeks of IV antibiotics at that time. She has had recurrent intermittent episodes of FUO since March 2022. Currently her symptoms started 1 night prior to admission with vomiting malaise and epigastric pain. She had no diarrhea melena or hematochezia. No urinary symptoms. She met SIRS criteria on admission with leukocytosis, fever, and was admitted to the hospital due to concern for sepsis and source evaluation. She did report a mild sore throat with a history of being colonized with group A strep. CT of the chest did not show any consolidation. CT of the abdomen and pelvis showed mild nonspecific enteritis. UA not consistent with a UTI. She currently denies any dysuria. Does not have any retained tampons. No recent [employer] T[employer]ENT concerns. Blood cultures remain negative to date. He had a history of removing ticks from her body several weeks ago. [place] therefore there was a possibility of heatstroke which was considered. She received IV hydration and presumptive antibiotics with Levaquin, vancomycin and metronidazole, then changed to ceftriaxone vancomycin and doxycycline. Over the last 24 hours prior to discharge patient is afebrile. Her leukocytosis has now resolved. Currently she has no persisting symptoms. No nausea vomiting or abdominal pain. She feels back to her baseline. No one source was evident as to her infections. Possibilities include acute viral versus bacterial gastroenteritis versus heat stroke versus tickborne illness. An echocardiogram was also performed during this admission to rule out possibility of endocarditis given recurrence of her symptoms. Additionally EBV/CMV PCR/Bartonella and Brucella serologies have been sent out and are currently pending. Possibility of the latter infections is currently low in an otherwise immunocompetent patient. She is recommended to continue Augmentin for enteritis and doxycycline for possible tickborne illness while her tick panel remains pending. Recommended to follow-up with her primary care provider within 1 week to follow-up on pending results. Physical Exam Narrative: General: No acute distress, AO x3 HEENT: PERRLA, pupils bilaterally equal and reactive, pallors not present Chest: Normal vesicular breath sounds, no added sounds, equal good air entry bilaterally CVS: S1-S2 regular, no murmurs, no tachycardia, no gallops, no rubs Abdomen: Soft, nontender, no organomegaly, bowel sounds present Neuro: No focal deficits, no facial deformity, AO x3, power 5/5 in all limbs Discharge Data Studies Completed and Pending Completed Studies During Hospitalization Category Date Time Status CT abdomen pelvis w con* [id number] Stat Cat Scan 12/23/22 12:[address] sinus wo con* [id number] Routine Cat Scan 12/23/22 14:49 Completed CTA chest [CT angio chest PE protcl [id number]] Stat Cat Scan 12/23/22 15:48 Completed XR chest 1V portable [id number] Stat Exams 12/23/22 12:05 Completed CV. echo complete* [id number] Routine Ultrasound 12/24/22 12:19 Completed Pending at discharge Category Date Time Status Bartonella Species AB(IgG,IgM) AM LABS Lab 12/25/22 03:52 Received Blood Culture AM LABS Lab 12/25/22 03:52 Results Blood Culture Stat Lab 12/23/22 12:20 Results Brucella AB Agglutination AM LABS Lab 12/25/22 03:52 Received CMV PCR [CYTOMEGALOVIRUS DNA, QN, REAL] AM LABS Lab 12/25/22 03:52 Received Complete Blood Count w/Auto AM LABS Lab 12/26/22 04:00 Ordered Comprehensive Metabolic Panel AM LABS Lab 12/26/22 04:00 Ordered EBV PCR [Diego Mccarthy Virus QN PCR] AM LABS Lab 12/25/22 03:52 Received Francisella Tularensis DA AM LABS Lab 12/25/22 03:52 Received Magnesium AM LABS Lab 12/26/22 04:00 Ordered Miscellaneous Test Routine Lab 12/23/22 15:07 Received Stool Culture, Bacterial [Enteric Bacterial Panel by Lab 12/23/22 15:09 Uncollected PCR] Routine Stool WBC [Lactoferrin] Routine Lab 12/23/22 15:09 Uncollected Tick Panel Routine Lab 12/23/22 15:09 Received Vancomycin Trough Timed Lab 12/26/22 04:00 Ordered stool Ova and Parasite [Enteric Parasite Panel by PCR] Lab 12/23/22 15:09 Uncollected Routine Radiology Impressions Chest X-Ray 12/23/22 12:05 IMPRESSION: No acute findings. Abdomen/Pelvis CT 12/23/22 12:59 IMPRESSION: There are air-fluid levels in nondilated small bowel loops. This can be seen with a nonspecific enteritis. COMMENTS: Consistent with the [employer]'s Incidental Findings Committee white paper (J Am Laura Radiol 2018): Any incidental renal lesion less than 1 cm or classified as too small to characterize, or any incidental cystic renal lesion characterized as simple-appearing, is likely benign. No follow-up imaging is recommended for these lesions per consensus recommendations based on imaging criteria. Sinuses CT 12/23/22 14:49 IMPRESSION: There is mild mucosal thickening of the ethmoid air cells and maxillary sinuses. Chest CTA 12/23/22 15:48 IMPRESSION: No acute findings. Laboratory Results WBC 8.3 10^3/uL (4.0-10.0) 12/25/22 03:52 RBC 3.78 10^6/uL (4.1-5.3) L 12/25/22 03:52 Hgb 11.2 g/dL (11.5-15.3) L 12/25/22 03:52 Hct 34.8 % (37.0-47.0) L 12/25/22 03:52 MCV 92.1 fl (81-99) 12/25/22 03:52 MCH 29.6 pg (28.0-34.0) 12/25/22 03:52 MCHC 32.2 g/dL (30.0-36.0) 12/25/22 03:52 RDW 12.5 % (12.1-15.1) 12/25/22 03:52 Plt Count 312 10^3/cmm (130-400) 12/25/22 03:52 MPV 9.2 fL (7.4-10.4) 12/25/22 03:52 Neut % (Auto) 57.3 % 12/25/22 03:52 Lymph % (Auto) 25.2 % 12/25/22 03:52 [place] % (Auto) 5.3 % 12/25/22 03:52 Eos % (Auto) 11.0 % 12/25/22 03:52 Baso % (Auto) 0.5 % 12/25/22 03:52 Neut # (Auto) 4.77 10^3/uL (1.8-7.7) 12/25/22 03:52 Lymph # (Auto) 2.1 10^3/uL (0.8-4.8) 12/25/22 03:52 [place] # (Auto) 0.4 10^3/uL (0.2-0.9) 12/25/22 03:52 Eos # (Auto) 0.9 10^3/uL (0.0-0.8) H 12/25/22 03:52 Baso # (Auto) 0.0 10^3/uL (0.0-0.1) 12/25/22 03:52 Nucleated RBC % (auto) 0 % 12/25/22 03:52 Nucleated RBCs # 0.0 /100WBC 12/25/22 03:52 ESR 15 mm/hr (0-15) 12/23/22 12:10 Sodium 140 mmol/L (136-145) 12/25/22 03:52 Potassium 3.8 mmol/L (3.5-5.1) 12/25/22 03:52 Chloride 108 mmol/L (98-107) H 12/25/22 03:52 Carbon Dioxide 25 mmol/L (22-29) 12/25/22 03:52 Anion Gap 10.8 (5-19) 12/25/22 03:52 BUN 8 mg/dL (6-20) 12/25/22 03:52 Creatinine 0.5 mg/dL (0.5-0.9) 12/25/22 03:52 GFR Calculation 148.0 mL/min (90-130) H 12/25/22 03:52 Glucose 95 mg/dL (65-115) 12/25/22 03:52 Calculated Osmolality 288 mOsm/kg (285-295) 12/25/22 03:52 Lactic Acid 2.2 mmol/L (0.5-2.2) 12/23/22 12:10 Lactic Acid (Sepsis) 1.1 mmol/L (0.5-2.2) 12/23/22 14:50 Calcium 8.0 mg/dL (8.5-10.5) L 12/25/22 03:52 Magnesium 1.9 mg/dL (1.7-2.3) 12/25/22 03:52 Total Bilirubin 0.2 mg/dL (0.15-1.2) 12/25/22 03:52 AST 9 U/L (0-32) 12/25/22 03:52 ALT 6 U/L (0-33) 12/25/22 03:52 Alkaline Phosphatase 67 U/L (35-105) 12/25/22 03:52 Creatine Kinase 61 U/L (26-192) 12/23/22 12:10 C-Reactive Protein 28.0 mg/L (0.0-4.9) H 12/23/22 12:10 Total Protein 5.6 g/dL (6.6-8.7) L 12/25/22 03:52 Albumin 2.9 g/dL (3.5-5.2) L 12/25/22 03:52 Globulin 2.7 g/dL (1.3-4.6) 12/25/22 03:52 Lipase 16 U/L (13-60) 12/23/22 12:10 HCG, Qual Negative (Negative) 12/23/22 12:10 Urine Color Colorless (Yellow) 12/23/22 13:52 Urine Appearance Clear (CLEAR) 12/23/22 13:52 Urine pH 9 (5-7) H 12/23/22 13:52 Ur Specific [place] 1.010 (1.005-1.030) 12/23/22 13:52 Urine Protein Neg (Negative) 12/23/22 13:52 Urine Glucose (UA) Norm (Normal) 12/23/22 13:52 Urine Ketones 1+ (Negative) H 12/23/22 13:52 Urine Blood Neg (Negative) 12/23/22 13:52 Urine Nitrate Negative (Negative) 12/23/22 13:52 Urine Bilirubin Neg (Negative) 12/23/22 13:52 Prot Sulfosalicylic Acd Negative (Negative) 12/23/22 13:52 Urine Urobilinogen Norm mg/dL (Negative) 12/23/22 13:52 Ur Leukocyte Esterase Negative (Negative) 12/23/22 13:52 Nasal Influ A H1 2009 PCR Not detected (NOT DETECT) 12/23/22 16:14 Vancomycin Trough 4.3 ug/mL (10-15) L 12/25/22 03:52 Adenovirus (PCR) Not detected (NOT DETECT) 12/23/22 16:14 C. pneumoniae DNA (PCR) Not detected (NOT DETECT) 12/23/22 16:14 Coronavirus 229E (PCR) Not detected (NOT DETECT) 12/23/22 16:14 Monoscreen Negative (Negative) 12/23/22 12:10 Human Metapneumovir PCR Not detected (NOT DETECT) 12/23/22 16:14 Influenza A (H1) PCR Not detected (NOT DETECT) 12/23/22 16:14 Influenza A (H3) PCR Not detected (NOT DETECT) 12/23/22 16:14 Influenza Type A (PCR) Not detected (NOT DETECT) 12/23/22 16:14 Influenza Type B (PCR) Not detected (NOT DETECT) 12/23/22 16:14 M. pneumoniae (PCR) Not detected (NOT DETECT) 12/23/22 16:14 Parainfluenza 1 (PCR) Not detected (NOT DETECT) 12/23/22 16:14 Parainfluenza 2 (PCR) Not detected (NOT DETECT) 12/23/22 16:14 Parainfluenza 3 (PCR) Not detected (NOT DETECT) 12/23/22 16:14 Parainfluenza 4 (PCR) Not detected (NOT DETECT) 12/23/22 16:14 RSV Type A (PCR) Not detected (NOT DETECT) 12/23/22 16:14 RSV Type B (PCR) Not detected (NOT DETECT) 12/23/22 16:14 Entero/Rhino (PCR) Not detected (NOT DETECT) 12/23/22 16:14 SARS-CoV-2 (PCR) Not detected (NOT DETECT) 12/23/22 16:14 Group A Strep Rapid Negative (Negative) 12/23/22 15:25 Vitals Last Vital Signs Temp 98.3 F 12/25/22 11:29 Pulse 91 12/25/22 11:29 Resp 16 12/25/22 11:29 BP 122/72 12/25/22 11:29 Pulse Ox 98 12/25/22 11:29 O2 Del Method Room Air 12/25/22 11:29 Discharge Plan Discharge Patient Disposition: Home Condition: Stable Prescriptions: New doxycycline monohydrate 100 mg Tablet 100 mg PO BID 7 Days Qty: 14 0RF amoxicillin-pot clavulanate 875-125 mg tablet 1 tab PO BID 5 Days Qty: 10 0RF Continued metoprolol tartrate 25 mg tablet 12.5 mg PO BID PRN (Reason: blood pressure/heartrate) ibuprofen 200 mg Tablet 800 mg PO Q8H PRN (Reason: Pain) Discharge Orders: Discharge Order (Routine); Ordered 12/25/22 Ordered By: Usha Bangura Referrals: Juan Alberto Sharma MD [Primary Care Provider] - 1 week Discharge Diet: Usual diet Discharge Activity: Resume usual activity Patient Instructions: Opioid Safety Discharge Attestations Time Spent in Discharge Care*: greater than 30 min Quality Metrics Clinical Quality Measures [ No reported AMI, CVA or VTE this stay] Coding Level of Care Code Acute Code for Chg Fwd Diagnoses Sepsis A41.9 Nausea and vomiting R11.2 Hypokalemia E87.6 Hypomagnesemia E83.42 Abdominal pain R10.9
[2022-12-25 14:34] LABS: Lyme AB Screen <0.90 index
[2022-12-25 14:45] VITALS: BP 122/72; PULSE 91; RESP 16; TEMP 36.8; O2SAT 98
[2022-12-27 23:30] LABS: RMSF IGG NOT DETECTED; RMSF IGM NOT DETECTED
[2022-12-28 15:16] LABS: Miscellaneous Test SEE COMMENTS
[2022-12-28 15:34] LABS: CMV DNA By PCR NOT DETECTED; CMV DNA, QN PCR NOT DETECTED Log IU/mL; SOURCE BLOOD
[2022-12-28 17:19] LABS: Epstein Barr Virus DNA PCR NOT DETECTED; Epstein Barr Virus DNA QN PCR NOT DETECTED copies/mL; Epstein Barr Virus Source BLOOD
[2022-12-29 21:48] LABS: E. Chaffeensis AB IGG <1:64; E. Chaffeensis AB IGM <1:20
[2022-12-31 20:26] LABS: Brucella AB Agglutination <1:80 titer
[2022-12-31 22:26] LABS: Francisella Tularensis DA <1:20 titer
[2023-01-03 02:10] LABS: Bartonella Henselae IgG AB NEGATIVE; Bartonella Henselae IgM AB NEGATIVE; Bartonella Quintana IgG AB NEGATIVE
[2023-03-27 16:06] LABS: Bartonella Quintana IgM AB NEGATIVE
== END 2022-12-25 14:30 | disposition home or self-care (01) | DRG 872 ==
LOC: ER 12:24 → MEDSURG 14:29
PROVIDERS: Internal Medicine; Admitting Provider Internal Medicine; Emergency Provider Family Medicine; PCP Family Medicine; Visit Provider Student in an Organized Health Care Education/Training Program
DX: A41.9 Sepsis, unspecified organism (principal); A93.8 Other specified arthropod-borne viral fevers; E83.42 Hypomagnesemia; E87.6 Hypokalemia; I10 Essential (primary) hypertension; K52.9 Noninfective gastroenteritis and colitis, unspecified
CPT/HCPCS: 36415; 70486; 71045; 71275; 74177; 80048; 80053; 80202; 81003; 82550; 83605; 83690; 83735; 84703; 85025; 85651; 86000; 86140; 86308; 86611; 86618; 86622; 86666; 86757; 87040; 87081; 87086; 87486; 87496; 87581; 87633; 87798; 87880; 93005; 93306; 96365; 96372; 96375; 99285; C9113; J0696; J1650; J1956; J2405; J3370; J3475; J3490; J7030; J7050; J7120; Q9967

== ENCOUNTER 2023-07-17 05:40 | Emergency (ER) | payer MEDICAID, SELFPAY ==
[2023-07-17 05:46] VITALS: BP 144/104; PULSE 79; RESP 18; TEMP 36.4; O2SAT 99; BMI 19.8
--- NOTE | 2023-07-17 06:00 | XRR_ITS ---
PROCEDURE INFORMATION: Exam: XR Chest Exam date and time: 07/17/2023 6:03 AM Age: 28 years old Clinical indication: Other: Upper abd pain; Additional info: Dyspnea/cough TECHNIQUE: Imaging protocol: Radiologic exam of the chest. Views: 1 view. COMPARISON: CT angio chest PE protcl [id number] 12/23/2022 5:56 PM FINDINGS: Lungs: Unremarkable. No consolidation. Pleural spaces: Unremarkable. No pleural effusion. No pneumothorax. Heart/Mediastinum: Unremarkable. No cardiomegaly. Bones/joints: Unremarkable. XR/XR chest 1V portable [id number] IMPRESSION: No acute findings.
[2023-07-17 06:02] VITALS: BP 145/81; PULSE 79; RESP 20; O2SAT 98
[2023-07-17] MEDS: ondansetron 2 mg/ML SDV 2 mL 4 MG IVP (06:07)
--- NOTE | 2023-07-17 06:10 | CTR_ITS ---
PROCEDURE INFORMATION: Exam: CT Abdomen And Pelvis With Contrast Exam date and time: 07/17/2023 6:35 AM Age: 28 years old Clinical indication: Nausea and vomiting; Abdominal pain; Epigastric; Prior surgery; Surgery date: 6+ months; Surgery type: Appy; Additional info: Abd pain TECHNIQUE: Imaging protocol: Computed tomography of the abdomen and pelvis with contrast. Radiation optimization: All CT scans at this facility use at least one of these dose optimization techniques: automated exposure control; mA and/or kV adjustment per patient size (includes targeted exams where dose is matched to clinical indication); or iterative reconstruction. Contrast material: OMNI 350; Contrast volume: 80 ml; Contrast route: INTRAVENOUS (IV); COMPARISON: CT abdomen pelvis w con* [id number] 12/23/2022 1:08 PM RADIATION DOSE METRICS: Total DLP (mGy-cm): 308.13 FINDINGS: Liver: Normal. No mass. Gallbladder and bile ducts: Normal. No calcified stones. No ductal dilation. Pancreas: Normal. No ductal dilation. Spleen: Normal. No splenomegaly. Adrenal glands: Normal. No mass. Kidneys and ureters: Normal. No hydronephrosis. Stomach and bowel: Unremarkable. No obstruction. No mucosal thickening. Appendix: No evidence of appendicitis. Intraperitoneal space: Unremarkable. No free air. No significant fluid collection. Vasculature: Unremarkable. No abdominal aortic aneurysm. Lymph nodes: Unremarkable. No enlarged lymph nodes. Urinary bladder: Unremarkable as visualized. Reproductive: Likely bilateral ovarian cysts. Fluid within the endometrial canal, correlate with menstrual cycle. Bones/joints: Unremarkable. No acute fracture. Soft tissues: Unremarkable. CT/CT abdomen pelvis w con* [id number] IMPRESSION: No acute subdiaphragmatic pathology.
[2023-07-17 06:12] LABS: Basophils % 0.4 %; Eosinophils % 0.3 %; Lymphocytes % 13.6 %; Mean Corpuscular HGB Conc 34.3 g/dL (30-55); Mean Corpuscular Hemoglobin 30.3 pg (27-33); Mean Corpuscular Volume 88.5 fl (85-98); Mean Platelet Volume 9.2 fL (7.4-10.4); Monocytes # 0.3 10^3/uL (0.2-0.9); Monocytes % 4.2 %; Neutrophils # 5.82 10^3/uL (1.8-7.7); Neutrophils % 81.1 %; Nucleated Red Blood Cells % 0 %; Platelet Count 383 10^3/cmm (157-399); Red Blood Count 4.52 10^6/uL (3.85-5.65); Red Cell Distribution Width 11.9 % (12.1-15.1); White Blood Count 7.18 10^3/uL (3.29-11.43)
[2023-07-17 06:13] VITALS: RESP 22; O2SAT 100
[2023-07-17] MEDS: morphine 4 mg/mL SDV 1 mL IVP ×2 (06:13→08:22)
--- NOTE | 2023-07-17 06:13 | ED_ITS ---
HPI - Abdominal Pain 2 General: Chief Complaint: Abdominal Pain Stated Complaint: center upper abd pain nausea vomit Time Seen by Provider: 07/17/23 05:50 Source: patient Mode of arrival: ambulatory History of Present Illness: 20-year-old female presents emergency ro om with right upper quadrant epigastric abdominal pain that began yesterday. She has had several episodes of vomiting. She denies dysuria urgency or frequency no recent fever sweats or chills. No cough or shortness of breath. She has previously had a cholecystectomy. She states she does not believe there is any potential for her to be . She denies any hematochezia melena hematemesis or coffee-ground emesis. She has not noticed anything that exacerbates or relieves her symptoms MD elicited complaint: abdominal pain Onset (ago): day(s) (1) Pain Consistency: constant Location: Epigastric and RUQ Severity: severe Quality: sharp Exacerbating factors: nothing Relieving factors: nothing Associated Symptoms: Reports GI cramping, nausea, poor appetite and vomiting; Denies anorexia, belching, bloating, change in bowel habits, change in stool character, chills, coffee ground emesis, constipation, diarrhea, dyspepsia, dysuria, excessive flatus, fever(s), heartburn, hematochezia, hematuria, hematemesis, fecal incontinence, loose stools, melena and syncope Related Data: Date of Last Menstrual Period: 07/03/23 Review of Systems 2 Const: Denies: fever(s) or chills Card: Denies: chest pain or syncope Resp: Denies: dyspnea GI: Reports: nausea, vomiting and GI cramping; Denies: abdominal pain, hematemesis, coffee ground emesis, heartburn, diarrhea, constipation, bloating, belching, excessive flatus, fecal incontinence, change in bowel habits, change in stool character, hematochezia or melena : Denies: dysuria, urinary frequency, urinary urgency or hematuria Musc: Denies: neck pain or back pain Skin/Breast: Denies: rash PFSH ED 2 PFSH: Medical History (Updated 07/17/23 @ 09:03 by Adelfo Christian DO) No pertinent past medical history Denies diabetes, asthma, seizures, DVT/PE PCP: Dr. Brown Benign hypertension Has chronic hypertension diagnosed in 2018 and is not currently on any medication. This is managed by her primary care provider Surgical History History of appendectomy Laparoscopic procedure performed in 2011 Family History Father Hypertension CAD (coronary artery disease) Stroke CVA in 30's Mother Crohn's disease Denies family history of Colon cancer Ovarian cancer Diabetes Clotting disorder Dementia Heart disease Hyperlipidemia Chronic kidney disease (CKD) Breast cancer Suicide Anesthesia complication Bleeding disorder Lung disease Cancer Uterine cancer Thyroid disease Social History Smoking and tobacco/nicotine status: never used tobacco/nicotine Alcohol intake: never Substance/Drug Use: never Lives independently: Yes Marital status: Number of children: 3 Current occupational status: employed Current occupation: [employer] Current gender identity: Female Female Reproductive History: Date of last menstrual period: 07/03/23 Physical Exam 2 Const: COMMON NORMALS: no acute distress GENERAL APPEARANCE: cooperative and comfortable ORIENTATION/CONSCIOUSNESS: Yes awake, Yes oriented to person, Yes oriented to place and Yes oriented to time HENMT: COMMON NORMALS: normocephalic, atraumatic and hearing grossly normal bilaterally HEAD & SCALP: normocephalic and atraumatic Resp: COMMON NORMALS: normal respiratory effort, No retractions, No use of accessory muscles and clear to auscultation bilaterally AUSCULTATION: clear to auscultation bilaterally Cardio: COMMON NORMALS: regular rate, regular rhythm and No murmurs present (Cardio) RATE: regular rate RHYTHM: regular rhythm GI: COMMON NORMALS: Soft to palpation and No hepatosplenomegaly present A USCULTATION: Yes normoactive bowel sounds PALPATION: Yes Soft to palpation, No Tenderness to palpation present (GI), No Guarding due to palpation present (GI) and Yes No hepatosplenomegaly present Extremity: COMMON NORMALS: normal to inspection, capillary refill normal, no clubbing, cyanosis or edema, no calf tenderness and no pedal edema Neuro: SENSORIUM/ORIENTATION: Yes oriented to person, Yes oriented to place and Yes oriented to time Skin: COMMON NORMALS: no rashes or lesions noted GENERAL SKIN EXAM: no rashes or lesions noted Course 2 Vital Signs: Vital signs: Vital Signs Temperature 97.5 F L 07/17/23 05:46 Pulse Rate 105 H 07/17/23 08:57 Respiratory Rate 18 07/17/23 08:57 Blood Pressure 145/81 07/17/23 06:02 Pulse Oximetry 99 07/17/23 08:57 Oxygen Delivery Me thod Room Air 07/17/23 08:57 MDM - Abdominal Pain Medical Decision Making Labs and imaging reviewed. Patient has improved somewhat. CT does not show any s set up for outpatient HIDA scan clear liquid diet for next 24 to 48 hours. Ignificant pathology and labs are unremarkable. She is feeling somewhat better. Suspect she may have had some biliary colic. Medical Records I reviewed the patient's medical records. Lab Data I reviewed the patient's lab results. 07/17/23 05:51 07/17/23 05:51 Labs/Radiology: Radiology Impressions Chest X-Ray 07/17/23 06:00 IMPRESSION: No acute findings. Abdomen/Pelvis CT 07/17/23 06:10 IMPRESSION: No acute subdiaphragmatic pathology. Laboratory Results WBC 7.18 10^3/uL (3.29-11.43) 07/17/23 05:51 RBC 4.52 10^6/uL (3.85-5.65) 07/17/23 05:51 Hgb 13.70 g/dL (11.27-16.99) 07/17/23 05:51 Hct 40.0 % (36-47) 07/17/23 05:51 MCV 88.5 fl (85-98) 07/17/23 05:51 MCH 30.3 pg (27-33) 07/17/23 05:51 MCHC 34.3 g/dL (30-55) 07/17/23 05:51 RDW 11.9 % (12.1-15.1) L 07/17/23 05:51 Plt Count 383 10^3/cmm (157-399) 07/17/23 05:51 MPV 9.2 fL (7.4-10.4) 07/17/23 05:51 Neut % (Auto) 81.1 % 07/17/23 05:51 Lymph % (Auto) 13.6 % 07/17/23 05:51 [place] % (Auto) 4.2 % 07/17/23 05:51 Eos % (Auto) 0.3 % 07/17/23 05:51 Baso % (Auto) 0.4 % 07/17/23 05:51 Neut # (Auto) 5.82 10^3/uL (1.8-7.7) 07/17/23 05:51 Lymph # (Auto) 1.0 10^3/uL (0.8-4.8) 07/17/23 05:51 [place] # (Auto) 0.3 10^3/uL (0.2-0.9) 07/17/23 05:51 Eos # (Auto) 0.0 10^3/uL (0.0-0.8) 07/17/23 05:51 Baso # (Auto) 0.0 10^3/uL (0.0-0.1) 07/17/23 05:51 Nucleated RBC % (auto) 0 % 07/17/23 05:51 Nucleated RBCs # 0.0 /100WBC 07/17/23 05:51 Sodium 137 mmol/L (136-145) 07/17/23 05:51 Potassium 3.9 mmol/L (3.5-5.1) 07/17/23 05:51 Chloride 102 mmol/L (98-107) 07/17/23 05:51 Carbon Dioxide 22 mmol/L (22-29) 07/17/23 05:51 Anion Gap 16.9 (5-19) 07/17/23 05:51 BUN 16 mg/dL (6-20) 07/17/23 05:51 Creatinine 0.6 mg/dL (0.5-0.9) 07/17/23 05:51 GFR Calculation 119.0 mL/min (90-130) 07/17/23 05:51 Glucose 120 mg/dL (65-115) H 07/17/23 05:51 Calculated Osmolality 286 mOsm/kg (285-295) 07/17/23 05:51 Calcium 9.8 mg/dL (8.5-10.5) 07/17/23 05:51 Total Bilirubin 0.7 mg/dL (0.15-1.2) 07/17/23 05:51 AST 16 U/L (0-32) 07/17/23 05:51 ALT 12 U/L (0-33) 07/17/23 05:51 Alkaline Phosphatase 72 U/L (35-105) 07/17/23 05:51 Total Protein 7.8 g/dL (6.6-8.7) 07/17/23 05:51 Albumin 4.6 g/dL (3.5-5.2) 07/17/23 05:51 Globulin 3.2 g/dL (1.3-4.6) 07/17/23 05:51 Lipase 21 U/L (13-60) 07/17/23 05:51 HCG, Qual Negative (Negative) 07/17/23 05:51 Urine Color Straw (Yellow) 07/17/23 07:05 Urine Appearance Clear (CLEAR) 07/17/23 07:05 Urine pH 9 (5-7) H 07/17/23 07:05 Ur Specific [place] 1.010 (1.005-1.030) 07/17/23 07:05 Urine Protein Neg (Negative) 07/17/23 07:05 Urine Glucose (UA) Norm (Normal) 07/17/23 07:05 Urine Ketones Negative (Negative) 07/17/23 07:05 Urine Blood Neg (Negative) 07/17/23 07:05 Urine Nitrate Negative (Negative) 07/17/23 07:05 Urine Bilirubin Neg (Negative) 07/17/23 07:05 Prot Sulfosalicylic Acd Negative (Negative) 07/17/23 07:05 Urine Urobilinogen Neg mg/dL (Negative) 07/17/23 07:05 Ur Leukocyte Esterase Negative (Negative) 07/17/23 07:05 All radiology interpretation(s) finalized by discharge Discharge Plan Discharge Patient Disposition: Home Clinical Impression: Abdominal pain in female, Biliary dyskinesia Condition: Stable Prescriptions: New hydrocodone-acetaminophen 5-325 mg tablet 1 tab PO Q6H PRN (Reason: pain) Qty: 20 0RF promethazine 25 mg tablet 25 mg PO Q6H PRN (Reason: nausea and vomiting) Qty: 15 0RF Protonix 40 mg tablet,delayed release (DR/EC) 40 mg PO DAILY Qty: 30 0RF Discharge Orders: Discharge ED (Routine); Ordered 07/17/23 Ordered By: Adelfo Christian Referrals: Juan Alberto Sharma MD [Primary Care Provider] - Patient Instructions: Diet for Stomach Ulcers and Gastritis (ED), GERD (Gastroesophageal Reflux Disease) (ED), Abdominal Pain (ED), Biliary Dyskinesia (DC), Pain Management Activity Restrictions/Additional Instructions: Thank you for choosing [facility] for your healthcare needs today. Please realize this is an emergency room and that we are providing you with a medical screening exam and this may not be complete and all inclusive of all the testing and or work up that you may need to determine your ailment or severity of your illness. It is very important that you follow up as instructed or that you return to the Emergency Department should you have concerns or if your condition changes or worsens in any way. Coding Level of Care Code ED [employer] Consultant for Cristian Sutton
[2023-07-17 06:23] LABS: HCG, Serum Qual Negative (Negative)
[2023-07-17] MEDS: sodium chloride 0.9% 1,000 ML 999 ML IV ×2 (06:26→08:12)
[2023-07-17 06:27] LABS: Alanine Aminotransferase 12 U/L (0-33); Albumin Level 4.6 g/dL (3.5-5.2); Alkaline Phosphatase 72 U/L (35-105); Anion Gap 16.9 (5-19); Aspartate Amino Transferase 16 U/L (0-32); Blood Urea Nitrogen 16 mg/dL (6-20); Calcium 9.8 mg/dL (8.5-10.5); Carbon Dioxide 22 mmol/L (22-29); Chloride 102 mmol/L (98-107); Creatinine Clr Calc Pharmacy 94.9598; Globulin 3.2 g/dL (1.3-4.6); Glucose 120 mg/dL (65-115); Lipase 21 U/L (13-60); Osmolality Calculated 286 mOsm/kg (285-295); Potassium 3.9 mmol/L (3.5-5.1); Sodium 137 mmol/L (136-145); Total Bilirubin 0.7 mg/dL (0.15-1.2); Total Protein 7.8 g/dL (6.6-8.7)
[2023-07-17 07:32] LABS: Add Urine Microscopic? NO; Charge for UA Resulting for Rev
[2023-07-17 07:39] LABS: Bilirubin Urine Neg (Negative); Blood Urine Neg (Negative); Glucose Urine UA Norm (Normal); Ketones Urine Negative (Negative); Leukocyte Esterase Urine Negative (Negative); Nitrate Urine Negative (Negative); Protein Urine Neg (Negative); Sulfosalicylic Acid Urine Negative (Negative); Urine Appearance Clear (CLEAR); Urine Color Straw (Yellow); Urobilinogen Urine Neg (Negative); pH Urine 9 (5-7)
[2023-07-17 08:57] VITALS: PULSE 105; RESP 18; O2SAT 99
[2023-07-17] MEDS: iohexol 350 mg/mL 500 mL Btl (per mL) IV (12:13)
--- NOTE | 2023-07-24 08:36 | DCPLANNER ---
outpatient order request sent to centralized scheduling 07/24/23- [facility]
== END 2023-07-17 09:58 | disposition home or self-care (01) ==
PROVIDERS: Emergency Provider Family Medicine; PCP Family Medicine
DX: R10.11 Right upper quadrant pain (principal); K82.8 Other specified diseases of gallbladder
CPT/HCPCS: 71045; 74177; 80053; 81003; 83690; 84703; 85025; 96361; 96374; 96375; 96376; 99285; J2270; J2405; J7030; Q9967

== ENCOUNTER 2023-07-24 07:35 | Outpatient (CLI) | payer MEDICAID, SELFPAY ==
--- NOTE | 2023-07-24 07:45 | NM_ITS ---
WS: [id number] NUCLEAR MEDICINE HIDA SCAN CLINICAL INFORMATION: Biliary dyskinesia TECHNIQUE: Following intravenous administration of 7.4 mCi of technetium 99m mebrofenin, images of th e abdomen were obtained over the course of 60 minutes. Next, gallbladder ejection fraction was determ ined by obtaining preprandial and one-hour postprandial images of the gallbladder following oral patsy stion of Ensure. COMPARISON: None. FINDINGS: Normal hepatic uptake at 5 minutes. Normal hepatic excretion. Normal common bile duct and small bowel activity. Gallbladder is visualized by 15 minutes. No evidence of acute cholecystitis. Gallbladder ejection fraction 86% within normal limits. No evidence of chronic cholecystitis. IMPRESSION: 1. No evidence of acute or chronic cholecystitis. 2. Gallbladder ejection fraction 86% within normal limits.
== END 2023-07-24 07:36 | disposition home or self-care (01) ==
LOC: RAD 07:36
PROVIDERS: PCP Family Medicine; Visit Provider Family Medicine
DX: K82.8 Other specified diseases of gallbladder (principal)
CPT/HCPCS: 78227; A9537

== ENCOUNTER 2023-08-01 09:44 | Day surgery (SDC) | payer MEDICAID, SELFPAY ==
--- NOTE | 2023-08-01 09:50 | P.HPUD_ITS ---
Surgery/Procedure H&P Update DATE OF PROCEDURE: August 01, 2023 DATE H&P PERFORMED: 07/26/23 H&P UPDATE INFORMATION: I have reviewed H&P completed within last 30 days, I have examined patient prior to procedure, No changes to prior documentation and H&P is in [facility] on date indicated PLANNED PROCEDURE: Operation Date: 08/01/23 10:50 Proposed Procedures p 76108 egd K21.9,R10.9(Not Applicable) - Paul Castelan MD
--- NOTE | 2023-08-01 09:50 | W.PM.OPSUD ---
Surgery/Procedure H&P Update DATE OF PROCEDURE: August 01, 2023 DATE H&P PERFORMED: 07/26/23 H&P UPDATE INFORMATION: I have reviewed H&P completed within last 30 days, I have examined patient prior to procedure, No changes to prior documentation and H&[place] is in [facility] [place] indicated PLANNED PROCEDURE: Operation Date: 08/01/23 10:50 Proposed Procedures p 16401 egd K21.9,R10.9(Not Applicable) - Paul Castelan MD
[2023-08-01 09:57] VITALS: BP 156/97; PULSE 108; RESP 18; TEMP 36.9; O2SAT 98; BMI 19.8
[2023-08-01 10:04] LABS: OR HCG Qualitative Urine Negative (Negative)
[2023-08-01] MEDS: sodium chloride 0.9% 1,000 ML 30 ML IV (10:05)
--- NOTE | 2023-08-01 10:10 | ANES.PREANE2 ---
Pre-Anesthetic Assessment Height/Weight: Height 1.47 m Weight 43.091 kg Temp Pulse Resp BP Pulse Ox O2 Del Method 98.4 F 108 H 18 156/97 98 Room Air 08/01/23 09:57 08/01/23 09:57 08/01/23 09:57 08/01/23 09:57 08/01/23 09:57 08/01/23 09:57 Operation Date: 08/01/23 10:50 Proposed Procedures p 89468 egd K21.9,R10.9(Not Applicable) - Paul Castelan MD Was Beta Brett taken within 24 hours: N/A Was Clonidine taken within 24 hours: N/A Last intake: Intake Last Liquid Date 07/31/23 Last Liquid Time 19:00 Last Solid Date 07/31/23 Last Solid Time 19:00 Social No alcohol and No tobacco Exam alert and oriented x 3 Airway Submandibular: within normal limits Cervical ROM: within normal limits Mallampati: Class I Dentition: full History/ROS No significant history except as noted Pulmonary None reported CV/HEM Hypertension (medically managed- not on meds now) None reported Hepatic None reported GI Gastroesophageal Reflux Disease Metabolic None reported Musc/skel None reported Neuropsych None reported Anesthetic Plan ASA status: 1 Anesthesia: MAC Risk of > 500 ml blood loss (7ml/kg in children): No Medications/Allergies Home Medications Medication Instructions Recorded Confirmed Last Taken Type pantoprazole 40 mg tablet,delayed 40 mg PO DAILY #30 tabs 07/17/23 07/30/23 07/31/23 Rx release (Protonix) ondansetron 4 mg disintegrating 4 mg PO Q8H PRN nausea and 07/19/23 07/30/23 07/29/23 Rx tablet vomiting #30 tabs Allergies Allergy/AdvReac Type Severity Reaction Status Date / Time No Known Allergies Allergy Verified 07/30/23 10:30 Current Medications Generic Name Dose Route Start Last Admin Trade Name Freq PRN Reason Stop Dose Admin Sodium Chloride 1,000 mls @ 30 mls/hr 08/01/23 10:00 08/01/23 10:05 Sodium Chloride 0.9% IV 08/02/23 09:59 30 mls/hr .Q24H JER Administration PFSH Anesthesia Medical History No pertinent past medical history Denies diabetes, asthma, seizures, DVT/PE PCP: Dr. Brown Benign hypertension Has chronic hypertension diagnosed in 2018 and is not currently on any medication. This is managed by her primary care provider Surgical History History of appendectomy Laparoscopic procedure performed in 2011 Family History Father Hypertension CAD (coronary artery disease) Stroke CVA in 30's Mother Crohn's disease Denies family history of Colon cancer Ovarian cancer Diabetes Clotting disorder Dementia Heart disease Hyperlipidemia Chronic kidney disease (CKD) Breast cancer Suicide Anesthesia complication Bleeding disorder Lung disease Cancer Uterine cancer Thyroid disease Social History Smoking and tobacco/nicotine status: never used tobacco/nicotine Alcohol intake: never Substance/Drug Use: never Lives independently: Yes Marital status: Number of children: 3 Current occupational status: employed Current occupation: [employer] Current gender identity: Female Female Reproductive History Date of last menstrual period: 07/03/23 Data Anesthesia Cardiac Studies: Echocardiogram 12/24/22 Sestamibi Stress Test (Cardiology) 08/08/22 Cardiac Event Monitor 02/15/22
[2023-08-01 10:45] VITALS: BP 110/63; PULSE 93; RESP 14; TEMP 36.9; O2SAT 95
[2023-08-01 10:50] VITALS: BP 108/69; PULSE 90; RESP 14; O2SAT 95
[2023-08-01 11:00] VITALS: BP 123/77; PULSE 82; RESP 16; O2SAT 97
[2023-08-01 11:07] VITALS: BP 129/83; PULSE 84; RESP 18; O2SAT 98
--- NOTE | 2023-08-01 11:25 | ANE.PACU2 ---
Inpatient post-anesthesia follow up: Airway intact: Yes Vital signs: Temperature 98.5 F Pulse Rate 84 Respiratory Rate 18 Blood Pressure 129/83 Pulse Oximetry 98 Oxygen Delivery Me thod Room Air Oxygen Flow Rate Fraction of Inspir ed Oxygen Hydration adequate: Yes Nausea and vomiting: No Pain level: 1 Mental status: Baseline
== END 2023-08-01 11:22 | disposition home or self-care (01) ==
PROVIDERS: Anesthesiology; PCP Family Medicine; Visit Provider Surgery
PROC: 0DJ08ZZ Inspection of Upper Intestinal Tract, Via Natural or Artificial Opening Endoscopic (ICD-10-PCS; CPT 43235; principal; 2023-08-01 10:50)
DX: K21.9 Gastro-esophageal reflux disease without esophagitis (principal); R10.9 Unspecified abdominal pain; K29.70 Gastritis, unspecified, without bleeding; I10 Essential (primary) hypertension
CPT/HCPCS: 43239; 81025; 84703; 88305; J2704; J7030

== ENCOUNTER 2023-09-23 14:24 | Inpatient (IN) | payer OTHER, MEDICAID, SELFPAY ==
[2023-09-23] VITALS (36 sets, daily range): BP systolic 95–144; BP diastolic 58–108; PULSE 65–148; RESP 11–26; TEMP 36.1–38; O2SAT 94–100; BMI 20.5; BMI 20.3
[2023-09-23 07:36] LABS: OR HCG Qualitative Urine Negative (Negative)
[2023-09-23] MEDS: sodium chloride 0.9% 1,000 ML 30 ML IV (07:43)
[2023-09-23] MEDS: scopolamine 1.5 Patch 1 PATCH TRANSDERMA (07:44)
--- NOTE | 2023-09-23 07:49 | P.ANESASSM_ITS ---
Pre-Anesthetic Assessment Height/Weight: Height 1.47 m Weight 44.452 kg Temp Pulse Resp BP Pulse Ox O2 Del Method 98.4 F 95 20 H 131/95 99 Room Air 09/23/23 07:37 09/23/23 07:37 09/23/23 07:37 09/23/23 07:37 09/23/23 07:37 09/23/23 07:37 Operation Date: 09/23/23 09:05 Proposed Procedures p 43168 lap cristiano K80.20(Not Applicable) - Paul Castelan MD Familial anesthetic complications: None Was Beta Brett taken within 24 hours: N/A Was Clonidine taken within 24 hours: N/A Last intake: Intake Last Liquid Date 09/22/23 Last Liquid Time 17:00 Last Solid Date 09/22/23 Last Solid Time 17:00 Social No alcohol and No tobacco Exam alert, oriented x 3, clear to auscultation bilaterally and regular rate & rhythm Airway Mallampati: Class I Dentition: full CV/HEM Hypertension and Palpitations (symptomatic tachy) GI Gastroesophageal Reflux Disease Anesthetic Plan ASA status: 2 Anesthesia: General Risk of > 500 ml blood loss (7ml/kg in children): No Medications/Allergies Home Medications Medication Instructions Recorded Confirmed Last Taken Type ondansetron 4 mg disintegrating 4 mg PO Q8H PRN nausea and 07/19/23 09/20/23 09/18/23 Rx tablet vomiting #30 tabs Allergies Allergy/AdvReac Type Severity Reaction Status Date / Time No Known Allergies Allergy Verified 09/23/23 07:34 Current Medications Generic Name Dose Route Start Last Admin Trade Name Freq PRN Reason Stop Dose Admin Sodium Chloride 1,000 mls @ 30 mls/hr 09/23/23 07:30 09/23/23 07:43 Sodium Chloride 0.9% IV 09/24/23 07:29 30 mls/hr .Q24H JER Administration PFSH Anesthesia Medical History No pertinent past medical history Denies diabetes, asthma, seizures, DVT/PE PCP: Dr. Brown Benign hypertension Has chronic hypertension diagnosed in 2018 and is not currently on any medication. This is managed by her primary care provider Surgical History History of appendectomy Laparoscopic procedure performed in 2011 Family History Father Hypertension CAD (coronary artery disease) Stroke CVA in 30's Mother Crohn's disease Denies family history of Colon cancer Ovarian cancer Diabetes Clotting disorder Dementia Heart disease Hyperlipidemia Chronic kidney disease (CKD) Breast cancer Suicide Anesthesia complication Bleeding disorder Lung disease Cancer Uterine cancer Thyroid disease Social History Smoking and tobacco/nicotine status: never used tobacco/nicotine Alcohol intake: never Substance/Drug Use: never Lives independently: Yes Marital status: Number of children: 3 Current occupational status: employed Current occupation: [employer] Current gender identity: Female Female Reproductive History Date of last menstrual period: 09/01/23 Data Anesthesia Cardiac Studies: Echocardiogram 12/24/22 Sestamibi Stress Test (Cardiology) 08/08 Cardiac Event Monitor 02/15/22
--- NOTE | 2023-09-23 08:09 | W.PM.OPSFHP ---
Same Day Surgery H&P Indication for Procedure/HPI DATE OF PROCEDURE: September 23, 2023 CHIEF COMPLAINT/INDICATIONFOR SURGICAL PROCEDURE: symptomatic cholelithiasis PREOP DIAGNOSIS: symptomatic cholelithiasis PLANNED PROCEDURE: Operation Date: 09/23/23 09:05 Pro[place] Procedures [place] [id number] lap cristiano K80.20(Not Applicable) - Paul Castelan MD Medications/Allergies* Allergies/Adverse Reactions Allergy/AdvReac Type Severity Reaction Status Date / Time No Known Allergies Allergy Verified 09/23/23 07:34 Current Medications: Generic Name Dose Route Start Last Admin Trade Name Freq PRN Reason Stop Dose Admin Sodium Chloride 1,000 mls @ 30 mls/hr 09/23/23 07:30 09/23/23 07:43 Sodium Chloride 0.9% IV 09/24/23 07:29 30 mls/hr .Q24H JER Administration Pertinent History/Comorbid Conditions* Medical History (Updated 07/25/23 @ 00:00 by LÓPEZ Abdi) No pertinent past medical history Denies diabetes, asthma, seizures, DVT/PE PCP: Dr. Brown Benign hypertension Has chronic hypertension diagnosed in 2018 and is not currently on any medication. This is managed by her primary care provider Surgical History (Updated 04/30/21 @ 12:56 by Carole Anthony MD) History of appendectomy Laparoscopic procedure performed in 2011 Family History (Updated 07/04/22 @ 12:11 by Juan Alberto Sharma MD) CAD (coronary artery disease) Father Crohn's disease Mother Hypertension Father Stroke Father CVA in 30's Denies family history of Colon cancer Ovarian cancer Diabetes Clotting disorder Dementia Heart disease Hyperlipidemia Chronic kidney disease (CKD) Breast cancer Suicide Anesthesia complication Bleeding disorder Lung disease Cancer Uterine cancer Thyroid disease Social History Smoking and tobacco/nicotine status: never used tobacco/nicotine Alcohol intake: never Substance/Drug Use: never Lives independently: Yes Marital status: Number of children: 3 Current occupational status: employed Current occupation: [employer] Current gender identity: Female Pertinent Exam Findings alert and oriented x 3 Recommendations Surgery/Procedure today Coding Level of Care Code Acute Code for Chg Fwd
[2023-09-23] MEDS: ceFAZolin 2,000 MG in sodium chloride 0.9% (plus) 50 ML 100 MG IV (09:16)
[2023-09-23] MEDS: lidocaine-epi 1% 20 mL INJ 10 ML INJECTION (09:42)
[2023-09-23] MEDS: BUPivacaine 0.25% INJ 10 mL INJECTION (09:43)
--- NOTE | 2023-09-23 10:18 | PM.OP ---
Operative Report Date of procedure: September 23, 2023 Pre-op diagnosis: Symptomatic cholelithiasis Post-op diagnosis: same Post-op findings: Normal biliary anatomy Procedure done: Laparoscopic cholecystectomy Specimens removed/disposition: Gallbladder Surgeon: Paul Castelan MD Laundry Route Driver: JESÚS OR Staff Estimated blood loss: 5 Complications: none Brief History: 28-year-old female with symptoms asymptomatic cholecystitis is a presented to my office to discuss laparoscopic cholecystectomy. After discussion of all risk benefits decided to proceed. Procedure: Patient was brought into the OR. She was placed in the supine position. General esthesia was given. The abdomen was prepped and draped in the usual sterile fashion. The abdomen was accessed via infraumbilical incision with an open technique, a 12 mm Sprague trocar was placed and fixed to the fascia with #0 Vicryl. Initial laparoscopy showed no evidence of visceral injury during entry. Additional 5 mm ports were placed in the epigastric right upper quadrant and right flank positions under direct visualization. The gallbladder was grasped from the fundus and retracted cephalad. It was a addition from the omentum of the gallbladder that was taken down with electrocautery. Then proceeded to close the infundibulum along the inferolateral direction to expose hepatocystic triangle. The peritoneum anterior to hepatocystic triangle was opened with electrocautery, this opening was carried on the medial and lateral directions of the gallbladder to the edges of the liver and then on the sides of the gallbladder to improve visualization. With careful dissection I was able to encircle the cystic duct and artery and I was able to elevate the lower third of the gallbladder from the cystic plate (obtaining the critical view of safety. Cystic duct and artery were double clipped singly and single clipped distally and transected. The gallbladder was excised from the liver bed using electrocautery. During excision a small hole was made in posterior wall of the gallbladder, bilateral spillage was removed with suction. The specimen was removed from the abdomen via the umbilical port site. I then proceeded to irrigate the gallbladder fossa the liver bed, evidence of bile leakage or bleeding was noted. Clips were noted in the correct position. After a complete history, physical examination and review of all available clinical data. I have offer screening colonoscopy as indicated by the current guidelines. I have discussed all the risks and benefits of the colonoscopy. Including, the risk of perforation requiring surgical intervention and ostomy creation, rectal bleeding, incomplete colonoscopy in one of every 20 patients requiring repat endoscopy in 1 year, missed polyps, need for additional procedures. Patient shows understanding and wishes to proceed. Endoscopy will be booked for the next available date. Information regarding the prep and procedure day will be given in printed format by my clinical staff. Post removal and fascia was closed using a #0 Vicryl in a Salo-Jose Manuel suture passer under direct visualization. The epigastric and right trocars were removed under direct association the right flank trocar was used to evacuate the pneumoperitoneum and subsequently removed. Local anesthesia was infiltrated in the wounds. The wounds were closed in layers using #4 Monocryl for the skin and was applied. At the end of the procedure all counts were correct. The patient tolerated the procedure and was transferred to the PACU in stable condition.
[2023-09-23] MEDS: fentaNYL 50 mcg/mL INJ 2mL IVP ×2 (11:00→13:28)
[2023-09-23] MEDS: racepinephrine 0.5 mL Neb INHALATION (11:22)
[2023-09-23] MEDS: midazolam 1 mg/mL INJ 2 mL IVP (11:24)
--- NOTE | 2023-09-23 11:31 | PC.NURSE ---
1122 - increased restless noted as well as stridor - 02 sats remain 98-100 on room air - FRANCK Dean at side - new orders rec'd
--- NOTE | 2023-09-23 13:00 | PC.NURSE ---
While assessing patient's pain level, patient became restless and having stridor and shortness of breath. Dean alerted. At bedside, ordered esmolol 30 mg given @ [address] Gan and 25 mg benadryl at 1305 by RN. Rt at bedside for ABG and doctor ordered albuterol. Temp now 98.7. Dr Castelan at bedside to assess patient. at bedside.
[2023-09-23 13:07] LABS: ABG PCO2 39.1 mmHg (35-45); ABG PH Result 7.36 (7.35-7.45); Alveolar-Arterial Oxygen Gradi 4.8 mmHg (5-10); Arterial Blood Gas Hematocrit 37.4 % (37-47); Base Excess ABG -3.3 mmol/L (-2.0-2.0); Blood Gas Operator Identificat GD; Blood Gas Sample Site Brachial, left; Blood Gas Sample Type Arterial; Carboxyhemoglobin 0.9 %THgb (0.4-20.1); HCO3 ABG 21.9 mmol/L (22-26); HGB O2 Sat 90.9 % (95-100); Ionized Calcium Level - ABG 1.1 mmol/L (1.1-1.4); Methemoglobin 0.8 % (0.4-1.5); Oxygen Device ROOM AIR; Oxygen Saturation ABG 92.5; PO2 ABG 61.5 mmHg (80.0-100.0); Potassium Level - ABG 4.1 mmol/L (3.5-5.0); Total Hemoglobin 12.2 g/dL (12-16)
--- NOTE | 2023-09-23 13:09 | XRR_ITS ---
PROCEDURE INFORMATION: Exam: XR Chest Exam date and time: 09/23/2023 12:19 PM Age: 28 years old Clinical indication: Shortness of breath; Prior surgery; Surgery date: 6+ months; Surgery type: Lap cristiano; Additional info: SOB TECHNIQUE: Imaging protocol: Radiologic exam of the chest. Views: 1 view. COMPARISON: CR XR chest 1V portable [id number] 07/17/2023 6:03 AM FINDINGS: Lungs: Unremarkable. No consolidation. Pleural spaces: Unremarkable. No pleural effusion. No pneumothorax. Heart/Mediastinum: Unremarkable. No cardiomegaly. Bones/joints: Unremarkable. Intraperitoneal space: Pneumoperitoneum is present. Right upper abdomen surgical clips. Gastrointestinal tract: Single borderline dilated air-filled left upper abdomen small bowel loop. XR/XR chest 1V portable [id number] IMPRESSION: 1. Pneumoperitoneum. If no history of recent surgery, recommend abdominopelvic CT. 2. Single borderline dilated left upper abdominal small bowel loop. 3. No acute cardiopulmonary findings.
[2023-09-23] MEDS: diphenhydrAMINE 50 mg/mL SDV 1mL 25 MG IVP (13:10)
[2023-09-23] MEDS: albuterol 2.5 mg/3 mL Neb INHALATION (13:13)
--- NOTE | 2023-09-23 13:25 | PC.NURSE ---
Humidification applied to O2 NC, 100 % on 3 L NC. Intermittent coughing fits with stridor sounding breathing. Dr Gan ordered 8 mg IVP decadron and another albuterol treatment. Also ordered to give fentanyl IVP.
[2023-09-23] MEDS: dexamethasone 4 mg/mL INJ 8 MG IVP (13:34)
--- NOTE | 2023-09-23 14:02 | PC.NURSE ---
Pt to go to ICU [address] Baires.
--- NOTE | 2023-09-23 14:29 | P.CONIM_ITS ---
Providers/Reason For Consult Consulting Physician/Specialty*: Dr Moran/Anesthesia Reason for Consult*: Stridor Requesting Physician: Dr Moran Attending Physician: Paul Castelan MD Primary Care Provider: Juan Alberto Sharma MD History of Present Illness History of Present Illness 28-year-old lady has not stridor, dry cough, dyspnea, tachypnea, tachycardia, accompanied by anxiety after extubation after an uneventful lap cristiano. Does not have history of anaphylaxis or known allergies. Had an EGD uneventful intubation prior to extubation cuff leak was checked and present. Does have some history of episodes of tachycardia which seem to have started or gotten worse after COVID which she was also assessed additionally including by cardiology and with a Holter monitor. In PACU she received racemic epinephrine, Benadryl, Decadron 8 mg. There is no circumoral, tongue or soft palate swelling. She denies nausea vomiting or abdominal discomfort. Maintain blood pressure 129/81. Tachycardia 120s-140s. Did not have an obvious rash, some flushing/red discoloration appearing on her chest with coughing. Has no history of anaphylaxis or angioedema. Review of Systems General: Reports: ROS unobtainable due to medical condition (limited) Card: Denies: chest pain Resp: Reports: non-productive cough and stridor GI: Denies: abdominal pain, nausea or vomiting Medications/Allergies Home Medications Medication Instructions Recorded Confirmed Last Taken Type ondansetron 4 mg disintegrating 4 mg PO Q8H PRN nausea and 07/19/23 09/20/23 09/18/23 Rx tablet vomiting #30 tabs meloxicam 7.5 mg tablet 7.5 mg PO DAILY 7 days #7 tabs 09/23/23 Unknown Rx oxycodone 5 mg tablet 5 mg PO Q8H PRN pain (scale score 09/23/23 Unknown Rx 7-10) #14 tabs Allergies Allergy/AdvReac Type Severity Reaction Status Date / Time No Known Allergies Allergy Verified 09/23/23 07:34 Current Medications Generic Name Dose Route Start Last Admin Trade Name Freq PRN Reason Stop Dose Admin Epinephrine 0.5 ml 09/23/23 11:28 09/23/23 11:22 Racepinephrine 0.5 Ml Neb INHALATION 0.5 ml Q4H.RESPIRATORY PRN Administration SHORTNESS OF BREATH Sodium Chloride 1,000 mls @ 30 mls/hr 09/23/23 07:30 09/23/23 09:44 Sodium Chloride 0.9% IV 09/24/23 07:29 Infused .Q24H JER Infusion PFSH Acute PFSH: Medical History (Updated 09/23/23 @ 14:58 by Paul Ortega MD) 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 Brown Benign hypertension Has chronic hypertension diagnosed in 2018 and is not currently on any medication. This is managed by her primary care provider Surgical History History of appendectomy Laparoscopic procedure performed in 2011 Family History Father Hypertension CAD (coronary artery disease) Stroke CVA in 30's Mother Crohn's disease Denies family history of Colon cancer Ovarian cancer Diabetes Clotting disorder Dementia Heart disease Hyperlipidemia Chronic kidney disease (CKD) Breast cancer Suicide Anesthesia complication Bleeding disorder Lung disease Cancer Uterine cancer Thyroid disease Social History Smoking and tobacco/nicotine status: never used tobacco/nicotine Alcohol intake: never Substance/Drug Use: never Lives independently: Yes Marital status: Number of children: 3 Current occupational status: employed Current occupation: [employer] Current gender identity: Female Female Reproductive History: Date of last menstrual period: 09/01/23 Vitals/I&O/Wt Last Vital Signs Temp 100.4 F H 09/23/23 14:06 Pulse 144 H 09/23/23 14:06 Resp 26 H 09/23/23 14:06 BP 129/81 09/23/23 14:06 Pulse Ox 99 09/23/23 14:06 O2 Del Method Nasal Cannula 09/23/23 14:06 O2 Flow Rate 3 09/23/23 14:06 09/22/23 09/23/23 09/23/23 22:59 06:59 14:59 Intake Total 1100 / 1100 Output Total 5 / 5 Balance 1095 / 1095 Weight last 48 hrs Weight 44.452 kg Physical Exam Narrative: Accompanied by her . Const: COMMON NORMALS: patient oriented x3 GENERAL APPEARANCE: cooperative ORIENTATION/CONSCIOUSNESS: Yes awake HENMT: COMMON NORMALS: oropharynx normal Neck/C-Spine: COMMON NORMALS: no JVD Resp: COMMON NORMALS: normal respiratory effort and clear to auscultation bilaterally AUSCULTATION: clear to auscultation bilaterally Cardio: COMMON NORMALS: no JVD, regular rhythm, S1 normal heart sound present, S2 normal heart sound present and No murmurs present (Cardio) RHYTHM: regular rhythm HEART SOUNDS: S1 normal heart sound present and S2 normal heart sound present GI: COMMON NORMALS: Normal to inspection, nondistended, normoactive bowel sounds present, Soft to palpation and non-tender PALPATION: Yes Soft to palpation Extremity: COMMON NORMALS: no joint enlargement and no pedal edema Neuro: COMMON NORMALS: patient oriented x3 and moves all extremities A&P Assessment and plan (1) Tachycardia: Does have history of episode of tachycardia. Sinus tachycardia on telemetry. Slightly likely multifactorial, question of possibility of reaction as above, otherwise also component of anxiety. Obtain twelve-lead EKG. Monitor on telemetry. Consult Attestations Medical Necessity Statement: Further hospitalization required for additional assessment management of stridor after extubation from following lap cristiano. Coding Level of Care Code Critical Care >/= 30 minutes Critical care time (in minutes): 35 The high probability of a clinically significant, sudden or life threatening deterioration, as referenced in this documentation, required my full and direct attention, intervention and personal management. The critical care time shown is in addition to time spent performing any reported separately billable procedures and includes the following: [x] Data and vital sign review and interpretation [x ] Patient assessment, examination and intervention [x] Medication orders and management [x] Patient/Family updates as able [x] Care Coordination and Documentation. Diagnoses Tachycardia R00.0
--- NOTE | 2023-09-23 14:29 | PC.NURSE ---
Pt and want to wait on IM epi for now out of concern of making HR higher. Will notify ICU staff.
--- NOTE | 2023-09-23 14:42 | PC.NURSE ---
Pt to ICU with all personal belongings. Report to Lucia.
--- NOTE | 2023-09-23 14:53 | ECG_ITS ---
[facility] Test Date: 2023-09-23 Pat Name: Rebekah Wagner Department: Room: ICU02 Gender: Female Braddisher: : 1995 Requested By: Paul Ortega Order Number: [id number] Reading MD: Tim Da Silva M.D. Measurements Intervals [place] Rate: 119 P: 60 LA: 149 QRS: 64 QRSD: 69 T: 40 QT: 314 QTc: 443 Interpretive Statements SINUS TACHYCARDIA POSSIBLE LEFT ATRIAL ENLARGEMENT [-0.1mV P-WAVE IN V1/V2] Compared to ECG 12/23/2022 12:07:12 Short LA interval no longer present T-wave abnormality no longer present Electronically Signed On 09-23-2023 21:53:12 CDT by Tim Da Silva M.D. [id number]
--- NOTE | 2023-09-23 15:11 | ANE.PACU2 ---
Inpatient post-anesthesia follow up: Airway intact: Yes Vital signs: Temperature 100.4 F Pulse Rate 144 Respiratory Rate 26 Blood Pressure 129/81 Pulse Oximetry 99 Oxygen Delivery Me thod Nasal Cannula Oxygen Flow Rate 3 Fraction of Inspir ed Oxygen Hydration adequate: Yes Nausea and vomiting: No Pain level: 3 Mental status: Baseline Additional Comments: patient with airway stridor and anxiety post-op given racemic epi. Stridor Continued mildly and intermittently sometimes moderately in severity. Treated with albuterol, decadron, benadryl for wheezing or allergic reaction as some transien and migrating flushing/rash noted over chest. ABG shows only PaO2 of 60 and CXR within normal limits. No signs of airway trauma or edema on exam. Significant tachycardia although there is baseline history of it. Admitted to ICU via hospitalist consult for continued monitoring.
--- NOTE | 2023-09-23 16:11 | PM.MISC ---
Miscellaneous Note Purpose of Documentation: Update on patient care Note: In the immediate postoperative. Patient was noted to have an episode of of tachycardia, stridor, shortness of breath and chest/abdominal pain. She was evaluated at the bedside by anesthesia team and myself, abdominal examination remained benign surgical incisions were intact. The patient appeared to have significant distress, in addition it was noted that she had a maculopapular rash in areas of the face and chest. Due to this findings we will proceed with consultation to the hospitalist team for evaluation and possible admission. After evaluation by hospitalist team it was deemed that the patient will benefit from overnight stay in the hospital, she was admitted to the ICU and initiated on medication for possible anaphylactic reaction. With these interventions patient shows improvement of her symptoms, rash also improved and the stridor resolved. I evaluated the patient this afternoon, tachycardia has significantly improved, patient is feeling better, no significant respiratory distress, no significant abdominal pain. Abdominal exam remains benign. We will continue current management, patient can be started on full liquid diet and advance as tolerated. After workup is concluded by the medical team and the patient is stable by the morning plan is for discharge home tomorrow.
[2023-09-23 16:48] LABS: Basophils % 0.1 %; Hematocrit 38.7 % (36-47); Lymphocytes # 0.5 10^3/uL (0.8-4.8); Lymphocytes % 4.3 %; Mean Corpuscular HGB Conc 32.8 g/dL (30-55); Mean Corpuscular Hemoglobin 30.2 pg (27-33); Mean Corpuscular Volume 92.1 fl (85-98); Mean Platelet Volume 9.4 fL (7.4-10.4); Monocytes # 0.1 10^3/uL (0.2-0.9); Monocytes % 0.5 %; Neutrophils # 9.94 10^3/uL (1.8-7.7); Neutrophils % 94.8 %; Nucleated Red Blood Cells % 0 %; Platelet Count 303 10^3/cmm (157-399); Red Cell Distribution Width 12.3 % (12.1-15.1); White Blood Count 10.48 10^3/uL (3.29-11.43)
[2023-09-23 17:03] LABS: Alanine Aminotransferase 19 U/L (0-33); Albumin Level 4.2 g/dL (3.5-5.2); Alkaline Phosphatase 82 U/L (35-105); Anion Gap 15.4 (5-19); Aspartate Amino Transferase 28 U/L (0-32); Blood Urea Nitrogen 15 mg/dL (6-20); Calcium 8.1 mg/dL (8.5-10.5); Carbon Dioxide 20 mmol/L (22-29); Chloride 107 mmol/L (98-107); Creatinine Clr Calc Pharmacy 83.3756; Globulin 2.8 g/dL (1.3-4.6); Glomerular Filtration Rate 99.6 mL/min (90-130); Glucose 104 mg/dL (65-115); Osmolality Calculated 287 mOsm/kg (285-295); Potassium 4.4 mmol/L (3.5-5.1); Sodium 138 mmol/L (136-145); Total Bilirubin 0.4 mg/dL (0.15-1.2)
--- NOTE | 2023-09-23 17:37 | P.CONIM_ITS ---
Providers/Reason For Consult 2 Consulting Physician/Specialty*: Dr. Sanket Hamilton MD Otolaryngology, Head & Neck Surgery Reason for Consult*: Post extubation stridor Requesting Physician: Dr. Pollo Rayo MD Attending Physician: Paul Castelan MD Primary Care Provider: Juan Alberto Sharma MD History of Present Illness History of Present Illness Rebekah Wagner is a 28 year old female who underwent a laparoscopic cholecystectomy today who developed acute onset stridor following extubation. The patient was transferred to the ICU and was given IV steroids and oxygen. I was consulted to evaluate the patient's airway. The patient reports that her symptoms have since resolved, and she is without c/o. She currently denies any shortness of breath, dyspnea, voice changes, or other related symptoms. Review of Systems 2 General: Reports: 10 or more systems reviewed and unremarkable except in HPI and below Medications/Allergies Home Medications Medication Instructions Recorded Confirmed Last Taken Type ondansetron 4 mg disintegrating 4 mg PO Q8H PRN nausea and 07/19/23 09/20/23 09/18/23 Rx tablet vomiting #30 tabs meloxicam 7.5 mg tablet 7.5 mg PO DAILY 7 days #7 tabs 09/23/23 Unknown Rx oxycodone 5 mg tablet 5 mg PO Q8H PRN pain (scale score 09/23/23 Unknown Rx 7-10) #14 tabs Allergies Allergy/AdvReac Type Severity Reaction Status Date / Time No Known Allergies Allergy Verified 09/23/23 07:34 Current Medications Generic Name Dose Route Start Last Admin Trade Name Freq PRN Reason Stop Dose Admin Epinephrine 0.5 ml 09/23/23 11:28 09/23/23 11:22 Racepinephrine 0.5 Ml Neb INHALATION 0.5 ml Q4H.RESPIRATORY PRN Administration SHORTNESS OF BREATH Sodium Chloride 1,000 mls @ 30 mls/hr 09/23/23 07:30 09/23/23 09:44 Sodium Chloride 0.9% IV 09/24/23 07:29 Infused .Q24H JER Infusion PFSH Acute 2 PFSH: Medical History (Updated 09/23/23 @ 14:58 by Paul Ortega MD) 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 Brown Benign hypertension Has chronic hypertension diagnosed in 2018 and is not currently on any medication. This is managed by her primary care provider Surgical History History of appendectomy Laparoscopic procedure performed in 2011 Family History Father Hypertension CAD (coronary artery disease) Stroke CVA in 30's Mother Crohn's disease Denies family history of Colon cancer Ovarian cancer Diabetes Clotting disorder Dementia Heart disease Hyperlipidemia Chronic kidney disease (CKD) Breast cancer Suicide Anesthesia complication Bleeding disorder Lung disease Cancer Uterine cancer Thyroid disease Social History Smoking and tobacco/nicotine status: never used tobacco/nicotine Alcohol intake: never Substance/Drug Use: never Lives independently: Yes Marital status: Number of children: 3 Current occupational status: employed Current occupation: [employer] Current gender identity: Female Female Reproductive History: Date of last menstrual period: 09/06/23 Vitals/I&O/Wt Last Vital Signs Temp 100.4 F H 09/23/23 14:06 Pulse 115 H 09/23/23 15:33 Resp 15 09/23/23 15:33 BP 129/81 09/23/23 14:06 Pulse Ox 95 09/23/23 15:33 O2 Del Method Nasal Cannula 09/23/23 15:33 O2 Flow Rate 2 09/23/23 15:33 09/23/23 09/23/23 09/23/23 06:59 14:59 22:59 Intake Total 1100 / 1100 Output Total 5 / 5 Balance 1095 / 1095 Weight last 48 hrs Weight 44.14 kg Weight 44.452 kg Physical Exam 2 Const: COMMON NORMALS: no acute distress, average body habitus, patient oriented x3, alert and well nourished GENERAL APPEARANCE: cooperative, comfortable and well kempt ORIENTATION/CONSCIOUSNESS: Yes awake, Yes oriented to person, Yes oriented to place and Yes oriented to time HENMT: COMMON NORMALS: normocephalic, external ears normal and Normal external nose present HEAD & SCALP: normocephalic FACE & SINUS: normal facial exam NOSE: Normal external nose present and Normal nares present EXTERNAL EAR: Y es external ears normal Eye: COMMON NORMALS: Equal, round and reactive pupils present, EOMs intact bilaterally, conjunctivae normal and no scleral icterus CONJUNCTIVA: Yes conjunctivae normal PUPIL: Yes Equal, round and reactive pupils present Neck/C-Spine: COMMON NORMALS: full ROM, no lymphadenopathy and supple Neuro: COMMON NORMALS: patient oriented x3 SENSORIUM/ORIENTATION: Yes alert, Yes oriented to person, Yes oriented to place and Yes oriented to time Psych: APPEARANCE: Yes well kempt Data 09/23/23 16:26 09/23/23 16:26 A&P Assessment and plan (1) VARGAS (dyspnea on exertion): Impression: Post extubation stridor - most likely secondary to glottic and/or supraglottic swelling that has now resolved Recommendations: - I recommend IV Decadron Q6 hours with overnight obervation - D/C in the am if stable from this standpoint - Contact Dr. Hamilton for any recurrent symptoms Consult Attestations 2 Medical Necessity Statement: I was consulted to evaluate the patient's airway for post extubation stridor. Procedures Procedure Narrative Flexible Fiberoptic Nasopharyngolaryngoscopy: the patient's nose was sprayed with Afrin bilaterally; the fiberoptic nasopharyngolaryngoscope was then introduced into the right nare and was advanced through the nose into the nasopharynx; the nasopharynx, oropharynx, hypopharynx, and larynx were examined and found to be normal; the patient had normal true vocal cord mobility bilaterally with a widely patent airway; the remaining exam was normal. Coding Level of Care Code Acute Code for Chg Fwd Diagnoses VARGAS (dyspnea on exertion) R06.09
[2023-09-23] MEDS: pantoprazole 40 mg SDV IVP (19:54)
[2023-09-23 20:25] LABS: Add Urine Culture? No; Add Urine Microscopic? YES; Bacteria Urine 2+ /hpf; Bilirubin Urine Neg (Negative); Blood Urine Neg (Negative); Glucose Urine UA Norm (Normal); Ketones Urine 2+ (Negative); Leukocyte Esterase Urine Negative (Negative); Nitrate Urine Negative (Negative); Protein Urine Neg (Negative); RBC Urine 0-4 /hpf (0-2); Squamous Epithelial Cell Urine 15-25 /hpf (0-5); Urine Appearance SL Hazy (CLEAR); Urine Color Yellow (Yellow); Urobilinogen Urine Neg (Negative); pH Urine 6 (5-7)
[2023-09-24] VITALS (17 sets, daily range): BP systolic 90–128; BP diastolic 54–87; PULSE 49–101; RESP 14–25; TEMP 36.8–37.2; O2SAT 95–100
[2023-09-24 04:32] LABS: Basophils % 0.2 %; Eosinophils # 0.1 10^3/uL (0.0-0.8); Eosinophils % 0.8 %; Hematocrit 36.3 % (36-47); Lymphocytes # 1.9 10^3/uL (0.8-4.8); Lymphocytes % 14.3 %; Mean Corpuscular HGB Conc 33.3 g/dL (30-55); Mean Corpuscular Hemoglobin 30.9 pg (27-33); Mean Corpuscular Volume 92.6 fl (85-98); Mean Platelet Volume 9.3 fL (7.4-10.4); Monocytes # 1.1 10^3/uL (0.2-0.9); Monocytes % 8.1 %; Neutrophils % 76.2 %; Nucleated Red Blood Cells % 0 %; Platelet Count 277 10^3/cmm (157-399); Red Blood Count 3.92 10^6/uL (3.85-5.65); Red Cell Distribution Width 12.3 % (12.1-15.1); White Blood Count 12.99 10^3/uL (3.29-11.43)
[2023-09-24 04:51] LABS: Alanine Aminotransferase 18 U/L (0-33); Albumin Level 3.8 g/dL (3.5-5.2); Alkaline Phosphatase 67 U/L (35-105); Anion Gap 14.4 (5-19); Aspartate Amino Transferase 21 U/L (0-32); Blood Urea Nitrogen 10 mg/dL (6-20); Calcium 8.8 mg/dL (8.5-10.5); Carbon Dioxide 23 mmol/L (22-29); Chloride 105 mmol/L (98-107); Creatinine Clr Calc Pharmacy 116.7258; Globulin 2.4 g/dL (1.3-4.6); Glomerular Filtration Rate 146.9 mL/min (90-130); Glucose 96 mg/dL (65-115); Osmolality Calculated 285 mOsm/kg (285-295); Potassium 4.4 mmol/L (3.5-5.1); Sodium 138 mmol/L (136-145); Total Bilirubin 0.4 mg/dL (0.15-1.2); Total Protein 6.2 g/dL (6.6-8.7)
--- NOTE | 2023-09-24 11:29 | PM.DCS ---
Discharge Providers Date of Admission: 09/23/23 14:24 Date of Discharge: September 24, 2023 Attending Provider at Admission: Paul Castelan MD Attending Provider at Discharge: Paul Castelan MD Primary Care Provider: Juan Alberto Sharma MD Diagnoses at Discharge Discharge Diagnosis (1) VARGAS (dyspnea on exertion): Status: Acute Reason for Visit Reason for Visit: K80.20 Hospital Course Hospital Course This is a 28-year-old female who presented for laparoscopic cholecystectomy for symptomatic cholelithiasis. Procedure was done without intraoperative complications but in the postoperative period patient had an episode of stridor, shortness of breath, tachycardia and a maculopapular rash that was concerning for the possibility of anaphylactic reaction. Due to his findings hospitalist team was consulted and the patient was admitted for overnight observation in the ICU. She received treatment with epinephrine which resolved her symptoms. Overnight patient has been doing very well, tachycardia completely resolved, no significant shortness of breath or pain reported. This morning patient had no abdominal pain, and was otherwise doing well. After discussion with the medical team we have decided the patient is stable for discharge we will be sending her home to return to my clinic in 1 week for follow-up. Physical Exam Narrative: General : Patient is well developed , no acute distress, oriented x3 Head : Normal cephalic, a-traumatic. Nose : Mucous membranes are without erythema. Lungs : Equal chest rise bilaterally, no use of accessory muscles, trachea is midline. CV : Rate and rhythm are normal. Abdomen : Soft, appropriately tender to palpation, surgical incisions are covered with Dermabond Extremities : No edema. Upper extremities are normal bilaterally. Back : non-tender to palpation, no CVA tenderness. Discharge Data Studies Completed and Pending Completed Studies During Hospitalization Category Date Time Status XR chest 1V portable [id number] Routine Exams 09/23/23 13:09 Completed Pending at discharge Category Date Time Status Complete Blood Count w/Auto AM LABS Lab 09/25/23 04:00 Ordered Complete Blood Count w/Auto AM LABS Lab 09/26/23 04:00 Ordered Comprehensive Metabolic Panel AM LABS Lab 09/25/23 04:00 Ordered Comprehensive Metabolic Panel AM LABS Lab 09/26/23 04:00 Ordered Tryptase Routine Lab 09/23/23 16:26 Received Pathology: Surgical [PTH] Routine Pth 09/23/23 10:14 Received Radiology Impressions Chest X-Ray 09/23/23 13:09 IMPRESSION: 1. Pneumoperitoneum. If no history of recent surgery, recommend abdominopelvic CT. 2. Single borderline dilated left upper abdominal small bowel loop. 3. No acute cardiopulmonary findings. ADDENDUM: 09/23/23 1347 Findings were discussed with ABRAN DORANTES at 09/23/2023 1:43 PM CDT. During discussion, Dr. Moran reported that the patient is currently in postoperative recovery, which makes the pneumoperitoneum an expected finding as well as the single borderline dilated left upper abdominal small bowel loop, which likely represents ileus. Laboratory Results WBC 12.99 10^3/uL (3.29-11.43) H 09/24/23 04:15 RBC 3.92 10^6/uL (3.85-5.65) 09/24/23 04:15 Hgb 12.10 g/dL (11.27-16.99) 09/24/23 04:15 Hct 36.3 % (36-47) 09/24/23 04:15 MCV 92.6 fl (85-98) 09/24/23 04:15 MCH 30.9 pg (27-33) 09/24/23 04:15 MCHC 33.3 g/dL (30-55) 09/24/23 04:15 RDW 12.3 % (12.1-15.1) 09/24/23 04:15 Plt Count 277 10^3/cmm (157-399) 09/24/23 04:15 MPV 9.3 fL (7.4-10.4) 09/24/23 04:15 Neut % (Auto) 76.2 % 09/24/23 04:15 Lymph % (Auto) 14.3 % 09/24/23 04:15 [place] % (Auto) 8.1 % 09/24/23 04:15 Eos % (Auto) 0.8 % 09/24/23 04:15 Baso % (Auto) 0.2 % 09/24/23 04:15 Neut # (Auto) 9.90 10^3/uL (1.8-7.7) H 09/24/23 04:15 Lymph # (Auto) 1.9 10^3/uL (0.8-4.8) 09/24/23 04:15 [place] # (Auto) 1.1 10^3/uL (0.2-0.9) H 09/24/23 04:15 Eos # (Auto) 0.1 10^3/uL (0.0-0.8) 09/24/23 04:15 Baso # (Auto) 0.0 10^3/uL (0.0-0.1) 09/24/23 04:15 Nucleated RBC % (auto) 0 % 09/24/23 04:15 Nucleated RBCs # 0.0 /100WBC 09/24/23 04:15 Specimen Type Arterial 09/23/23 12:50 Sample Site Brachial, left 09/23/23 12:50 ABG pH 7.36 (7.35-7.45) 09/23/23 12:50 ABG pCO2 39.1 mmHg (35-45) 09/23/23 12:50 ABG pO2 61.5 mmHg (80.0-100.0) L 09/23/23 12:50 ABG HCO3 21.9 mmol/L (22-26) L 09/23/23 12:50 ABG O2 Saturation 92.5 09/23/23 12:50 ABG Base Excess -3.3 mmol/L (-2.0-2.0) L 09/23/23 12:50 Hipolito Test N/a 09/23/23 12:50 A-a O2 Gradient 4.8 mmHg (5-10) L 09/23/23 12:50 Hematocrit 37.4 % (37-47) 09/23/23 12:50 Hgb O2 Saturation 90.9 % (95-100) L 09/23/23 12:50 Carboxyhemoglobin 0.9 %THgb (0.4-20.1) 09/23/23 12:50 Methemoglobin 0.8 % (0.4-1.5) 09/23/23 12:50 Total Hemoglobin 12.2 g/dL (12-16) 09/23/23 12:50 Sodium 141.0 mmol/L (131-143) 09/23/23 12:50 Potassium 4.1 mmol/L (3.5-5.0) 09/23/23 12:50 Glucose 98.0 mg/dL (70-115) 09/23/23 12:50 Ionized Calcium 1.1 mmol/L (1.1-1.4) 09/23/23 12:50 O2 Delivery Device Room air 09/23/23 12:50 English And Reading Instructor ID Gd 09/23/23 12:50 Sodium 138 mmol/L (136-145) 09/24/23 04:15 Potassium 4.4 mmol/L (3.5-5.1) 09/24/23 04:15 Chloride 105 mmol/L (98-107) 09/24/23 04:15 Carbon Dioxide 23 mmol/L (22-29) 09/24/23 04:15 Anion Gap 14.4 (5-19) 09/24/23 04:15 BUN 10 mg/dL (6-20) 09/24/23 04:15 Creatinine 0.5 mg/dL (0.5-0.9) 09/24/23 04:15 GFR Calculation 146.9 mL/min (90-130) H 09/24/23 04:15 Glucose 96 mg/dL (65-115) 09/24/23 04:15 Calculated Osmolality 285 mOsm/kg (285-295) 09/24/23 04:15 Calcium 8.8 mg/dL (8.5-10.5) 09/24/23 04:15 Total Bilirubin 0.4 mg/dL (0.15-1.2) 09/24/23 04:15 AST 21 U/L (0-32) 09/24/23 04:15 ALT 18 U/L (0-33) 09/24/23 04:15 Alkaline Phosphatase 67 U/L (35-105) 09/24/23 04:15 Total Protein 6.2 g/dL (6.6-8.7) L 09/24/23 04:15 Albumin 3.8 g/dL (3.5-5.2) 09/24/23 04:15 Globulin 2.4 g/dL (1.3-4.6) 09/24/23 04:15 Urine Color Yellow (Yellow) 09/23/23 20:00 Urine Appearance Sl hazy (CLEAR) A 09/23/23 20:00 Urine pH 6 (5-7) 09/23/23 20:00 Ur Specific [place] 1.020 (1.005-1.030) 09/23/23 20:00 Urine Protein Neg (Negative) 09/23/23 20:00 Urine Glucose (UA) Norm (Normal) 09/23/23 20:00 Urine Ketones 2+ (Negative) H 09/23/23 20:00 Urine Blood Neg (Negative) 09/23/23 20:00 Urine Nitrate Negative (Negative) 09/23/23 20:00 Urine Bilirubin Neg (Negative) 09/23/23 20:00 Urine Urobilinogen Neg mg/dL (Negative) 09/23/23 20:00 Ur Leukocyte Esterase Negative (Negative) 09/23/23 20:00 Urine RBC 0-4 /hpf (0-2) H 09/23/23 20:00 Urine WBC None /hpf (0-5) 09/23/23 20:00 Ur Squamous Epith Cells 15-25 /hpf (0-5) H 09/23/23 20:00 Amorphous Sediment Not Reportable 09/23/23 20:00 Urine Bacteria 2+ /hpf (NONE) H 09/23/23 20:00 Urine HCG, Qual Negative (Negative) 09/23/23 07:30 Vitals Last Vital Signs Temp 98.3 F 09/24/23 04:00 Pulse 86 09/24/23 10:00 Resp 19 H 09/24/23 10:00 BP 128/80 09/24/23 10:00 Pulse Ox 95 09/24/23 10:00 O2 Del Method Room Air 09/24/23 09:31 O2 Flow Rate 2 09/23/23 20:00 Discharge Plan Discharge Patient Disposition: Home Condition: Stable Prescriptions: New oxycodone 5 mg tablet 5 mg PO Q8H PRN (Reason: pain (scale score 7-10)) Qty: 14 0RF epinephrine 0.3 mg/0.3 mL auto-injector 0.3 mg IM Q15M PRN (Reason: anaphylaxis) Qty: 2 0RF Rx Instructions: for 2 doses dexamethasone 6 mg tablet 6 mg PO Q6H 1 Days Qty: 4 0RF Continued ondansetron 4 mg tablet,disintegrating 4 mg PO Q8H PRN (Reason: nausea and vomiting) Qty: 30 0RF Discharge Orders: Discharge Order (Routine); Ordered 09/24/23 Ordered By: Paul Castelan Referrals: Paul Castelan MD [Physician] - 10/01/23 1:35 pm () Juan Alberto Sharma MD [Primary Care Provider] - 10/02/23 8:45 am Discharge Diet: Advance as tolerated Discharge Activity: Limit activity as instructed Patient Instructions: Oxycodone/Acetaminophen (By mouth), Epinephrine (By injection) (Adrenaclick, Adrenalin, EpiPen,..., Epinephrine (By injection), Post Anesthesia Care Activity Restrictions/Additional Instructions: Walk as much as possible, this will speed up your recovery. Please do not lift anything heavier than 10 pounds for the next 4 to 6 weeks. You can remove your dressing and shower and then pat dry your wounds a day after tomorrow. Return to the hospital to be you have fever, chills, severe abdominal pain that is getting worse, yellowing of the coloration of your eyes or skin. Follow-up with your primary doctor for reassessment after reaction after anesthesia, possible anaphylactic reaction. You are provided with an EpiPen. Would avoid meloxicam if possible. The possibility could be secondary to pressure from endotracheal tube causing airway irritation and swelling and temporary narrowing. Follow-up with your primary provider regarding pending tryptase level and discuss consideration of referral for allergy testing. In case of any worsening or new concerning symptoms seek medical attention. Discharge Attestations Time Spent in Discharge Care*: greater than 30 min Quality Metrics Clinical Quality Measures [ No reported AMI, CVA or VTE this stay] Coding Level of Care Code Acute Code for Chg Fwd Diagnoses VARGAS (dyspnea on exertion) R06.09
[2023-09-24] MEDS: dexamethasone 4 mg Tablet 6 MG PO (12:50)
--- NOTE | 2023-09-24 13:00 | PC.NURSE ---
Discharge Note Patient discharged to home accompanied by spouse. Discharge instructions reviewed with patient and spouse, both verbalized understanding of teaching . All prescriptions sent to patient pharmacy of choice. All belongings returned to patient upon discharge.
--- NOTE | 2023-09-24 15:48 | PM.PN ---
Subjective Subjective: She is overall doing better. She still notices some raspiness/minimal upper airway wheeze with using incentive parameter this morning. Has not had any recurrence of macular rash. No nausea or vomiting. Poor appetite this morning but on reassessment later on did have some GI soft breakfast. Has not been related. Denies dyspnea, no oral or perioral swelling, no difficulties maintaining O2 saturation. She had previously experienced intermittent gastric reflux. Vitals/I&O/Wt Last Vital Signs Temp 99.0 F 09/24/23 12:44 Pulse 82 09/24/23 12:44 Resp 18 09/24/23 12:44 BP 109/83 09/24/23 12:44 Pulse Ox 100 09/24/23 12:44 O2 Del Method Room Air 09/24/23 09:31 O2 Flow Rate 2 09/23/23 20:00 Weight last 48 hrs Weight 44.497 kg Weight 44.14 kg Weight 44.452 kg Physical Exam Narrative: Accompanied by her . Const: COMMON NORMALS: patient oriented x3 GENERAL APPEARANCE: cooperative ORIENTATION/CONSCIOUSNESS: Yes awake HENMT: COMMON NORMALS: oropharynx normal Neck/C-Spine: COMMON NORMALS: no JVD Resp: COMMON NORMALS: normal respiratory effort and clear to auscultation bilaterally AUSCULTATION: clear to auscultation bilaterally Cardio: COMMON NORMALS: no JVD, regular rhythm, S1 normal heart sound present, S2 normal heart sound present and No murmurs present (Cardio) RHYTHM: regular rhythm HEART SOUNDS: S1 normal heart sound present and S2 normal heart sound present GI: COMMON NORMALS: Normal to inspection, nondistended, normoactive bowel sounds present, Soft to palpation and non-tender PALPATION: Yes Soft to palpation Extremity: COMMON NORMALS: no joint enlargement and no pedal edema Neuro: COMMON NORMALS: patient oriented x3 and moves all extremities Data 09/24/23 04:15 09/24/23 04:15 A&P Assessment and plan (1) Stridor: For the most part has nearly resolved, although she does still have some raspiness to her voice and still has some low pitched upper airway wheeze using the incentive spirometer this morning. She received Decadron yesterday, resumed her on some additional Decadron 4 days he has discussed with as per ENT with possible localized swelling. She otherwise has continued to improve. Has not had any recurrence of macular rash. She does report occasional reflux episodes in the past, and so another possibility could be upper airway irritation secondary to reflux post extubation. However, there is no flecked traction is still a possibility, discussed with her and she will follow-up with her provider for assessment of tryptase results, and is additionally given prescription for EpiPen in case of symptoms of anaphylactic reaction. She will also discuss consideration of referral for allergy testing once tryptase results become available. We additionally monitored her through the morning and afternoon today, and she was able to tolerate oral intake without difficulty. On reassessment she is feeling well, in good spirits, denies any complaints, feels comfortable returning home. Knows to seek medical attention in case of any worsening or new concerning symptoms. Discussed with porter sample case. (2) Tachycardia: Resolved (3) Fever: Resolved. No signs of UTI. Possibly atelectasis after extubation versus possibility of some postoperative reflux, possibly airway irritation, perhaps contributing to her symptoms above. Did have mild leukocytosis this morning 12.99, possibly secondary to steroids. Reviewed vitals, CBC, CMP, UA. Low-grade temp in recovery room, 100.4 Fahrenheit, no abdominal pain, no nausea vomiting, chest x-ray with pneumoperitoneum, expected following lap cristiano, single borderline dilated left upper abdominal small bowel loop. No acute cardiopulmonary findings. Plan (4) S/P cholecystectomy: Reported status post uneventful lap cristiano. Tolerating oral intake today. Reviewed surgery note. Discussed with the surgeon. Attestations Medical Necessity Statement*: Returning home with follow-up. and High MDM includes number and complexity of problems actively addressed during encounter and amount and/or complexity of data reviewed/ordered [ resulted lab(s)/test(s) and other healthcare professional discussion] as documented Diagnoses Stridor R06.1 Tachycardia R00.0 Fever R50.9
== END 2023-09-24 12:52 | disposition home or self-care (01) | DRG 419 ==
LOC: ICU 14:25
PROVIDERS: Anesthesiology; Internal Medicine; Admitting Provider Surgery; PCP Family Medicine; Visit Provider Surgery
PROC: 0FT44ZZ Resection of Gallbladder, Percutaneous Endoscopic Approach (ICD-10-PCS; CPT 47562; principal; 2023-09-23 08:55)
DX: K80.20 Calculus of gallbladder without cholecystitis without obstruction (principal); R00.0 Tachycardia, unspecified; R06.1 Stridor; R21 Rash and other nonspecific skin eruption; R06.02 Shortness of breath
CPT/HCPCS: 36415; 36600; 71045; 80051; 80053; 81001; 81025; 82330; 82805; 83520; 84703; 85025; 88304; 93005; 94640; 96376; C9113; J0690; J1100; J1170; J1200; J2250; J2371; J2405; J2704; J2710; J3010; J3490; J7030; J7613; J8540

== ENCOUNTER 2024-11-19 10:45 | Outpatient (CLI) | payer OTHER, SELFPAY ==
--- NOTE | 2024-11-19 10:53 | US_ITS ---
WS: [id number] ULTRASOUND BREAST RIGHT TECHNIQUE: Ultrasound right breast focused area of concern. CLINICAL INFORMATION: PAINFUL LUMP RT. BREAST n64.4 COMPARISON: None. FINDINGS: Ultrasound RIGHT breast the 7 o'clock position 3 cm from the nipple in the area of concern. Deep to the area of palpable concern there is a region of dense parenchymal tissue with an area of presumed fibrocystic change. Central hypoechoic area appears cystic measuring 8 x 8 x 4 mm. Recommend 6-month follow- up ultrasound to confirm stability or follow-up sooner if change in symptoms. US/US breast RT limited* [id number] IMPRESSION: BI-RADS 3 probably benign Follow-up: 6-month follow-up ultrasound RIGHT breast
== END 2024-11-19 10:46 | disposition home or self-care (01) ==
PROVIDERS: PCP Family Medicine; Visit Provider Nurse Practitioner Family
DX: N64.4 Mastodynia (principal); N63.13 Unspecified lump in the right breast, lower outer quadrant
CPT/HCPCS: 76642

== ENCOUNTER 2025-04-03 07:56 | Emergency (ER) | payer OTHER, BC, MEDICAID, SELFPAY ==
--- OUTSIDE RECORDS SUMMARY | 2025-04-03 08:00 | XMS_ITS | Clinical Summary ---
Author Organization [facility] Address [address] Attn: [place] [address] Care Team Providers Care [employer] Professional Name Role Phone Unavailable Primary Care Provider Unavailabl e Social History Tobacco Use Types Packs/Day Years Used Date Smoking Tobacco: Never Assessed Comments Unknown Sex and Gender Information Value Date Recorded Sex Assigned at Not on file Legal Sex Female 11:41 AM MEDICARE CONTACT SPECIALIST Gender Identity Not on file Sexual Orientation Not on file Plan of Treatment Health Maintenance Due Date Last Done Comments DTAP/TDAP/TD VACCINES (1 - Tdap) 2014 HEPATITIS B VACCINES (1 of 3 - 19+ 3-dose series) 03/02 HPV/Cotest (21-29) 2016 HPV VACCINES (1 - 3-dose SCDM series) 2022 INFLUENZA VACCINE (#1) 2025 CERVICAL CANCER SCREENING 2025 HPV/Cotest (30-65) 2025 PAP SMEAR 2025 Insurance [facility] [id number] [facility] [id number] POS II
--- OUTSIDE RECORDS SUMMARY | 2025-04-03 08:00 | XMS_ITS | Data Portability ---
Author Organization [facility] Address [address] [facility] [address] [place] [address] Care Team Providers Care Warehousing Technician Name Role Phone ZIYAD BROWN Primary Care Provider Unavailabl e Assessment Encounter Date Assessment Date Assessment LastModified by Organization Details LastModified Time 11/04/2024 11/04/2024 Patient here to establish care and to discuss further testing regarding a right breast lump. She has been doing well otherwise. She cannot remember when her last pap smear was or if she has had one but she has had 3 babies so I would think at some point a pap has been done. She will call back to have pap testing done after her breast lump is addressed. Not available 11/04/2024 16:09:01 Plan of Treatment Reminders Order Date Submit Date Provider Last Modified By Organization Details Last Modified Time Details Appointments None recorded. Lab None recorded. Referral None recorded. Procedures None recorded. Surgeries None recorded. Imaging MAMMO, unilateral , right and US, breast, right 2024 025 [facility] (Scheduling Orders), [address] [place], [address], 08:35:45 Medication Orders mupirocin 2 % topical ointment 2024 025 [facility] [place], [address] [place], [address], 5 10:54:40 Medrol ([place]) 4 mg tablets in a dose pack 2024 025 [facility] [place], [address] [place], [address], 10:05:13 Patient TargetsNo targets recorded. Patient Instructions Encounter Date Encounter Id Patient Instructions Last Modified By Organization Details Last Modified Time 11/04/2024 [id number] Call or return for questions or concerns. Not available 11/04/2024 16:08:16 Reason for Referral None Reported. Results Created Date Observation Date Name Description Value Unit Range Abnormal Flag Note LastModifiedBy Organization Detail LastModifiedTime 11/20/1911/19/2024 imagi ng inter preta tion No observ ation record ed. [email or web address] [facility] [address] [place], [address], 12/02/2024 10:06:03 Result Notes None recorded. Procedures Surgical History Date Name Laterality Status Provider Name and Address Organization Details Recorded Time 11/20/19 ultrasonography of right breast completed [facility] 12/02/2024 10:05:12 Appendectomy completed [facility] 07/16/2024 10:03:19 Cholecystectomy completed [facility] 07/16/2024 10:03:27 Imaging Results None recorded. Procedure Notes None recorded. Medical Equipment None Reported. Allergies No known drug allergies Medications Name Sig Start Date Stop Date Status Note LastModified by Organization Details LastModified Time hydrocodo ne 5 mg-acetam inophen 325 mg tablet TAKE 1 TABLET BY MOUTH EVERY 6 HOURS NEEDED FOR PAIN 07/16 completed Not Available Not Available Not Available sucralfat e 100 mg/mL oral suspensio n take 10ml BY MOUTH TWICE DAILY for 10 days 07/16 completed Not Available Not Available Not Available Medrol ([place]) 4 mg tablets in a dose pack Take 1 dose pk every day by oral route as directed . 10/08 completed Not Available Not Available Not Available dexametha sone 6 mg tablet TAKE 1 TABLET BY MOUTH EVERY 6 HOURS FOR ONE DAY 07/16 completed Not Available Not Available Not Available meloxicam 7.5 mg tablet TAKE ONE TABLET BY MOUTH DAILY FOR SEVEN DAYS 07/16 completed Not Available Not Available Not Available famotidin e 20 mg tablet two times daily 07/16 completed Recorded 12/21/19 21 1:11PM by Ziyad Brown MD, Office Visit; Refill Quantity : 28; Tablet; Not Available Not Available Not Available pantopraz ole 40 mg tablet,de layed release TAKE 1 TABLET BY MOUTH EVERY DAY 07/16 completed Not Available Not Available Not Available promethaz ine 25 mg tablet TAKE 1 TABLET BY MOUTH EVERY 6 HOURS NEEDED FOR NAUSEA AND VOMITING 07/16 completed Not Available Not Available Not Available mupirocin 2 % topical ointment apply a small amount TO affected area of SKIN THREE TIMES DAILY 11/04 completed Not Available Not Available Not Available epinephri ne 0.3 mg/0.3 mL injection , auto-inje ctor inject 0.3mg (0.3ml) INTRAMUS CULARLY every 15 minutes NEEDED FOR anaphyla xis FOR TWO doses 11/04 completed Not Available Not Available Not Available ondansetr on 4 mg disintegr ating tablet DISSOLVE ONE TABLET BY MOUTH EVERY 8 HOURS NEEDED FOR NAUSEA AND VOMITING 07/16 completed Not Available Not Available Not Available oxycodone 5 mg tablet TAKE ONE TABLET BY MOUTH EVERY 8 HOURS NEEDED FOR PAIN (scale score 7-10) 07/16 completed Not Available Not Available Not Available Tri-Sprin frederick (28) 0.18 mg(7)/0.2 15 mg(7)/0.2 5 mg(7)-0.0 35 mg tablet daily 07/16 completed Recorded 12/21/19 21 12:56PM by Chio Luther LPN, Office Visit; Refill Quantity : 28; Tablet; Not Available Not Available Not Available ondansetr on every four hours, as needed 07/16 completed RM/CC; 9; Recorded 09/02/19 22 1:10PM by Chio Luther LPN ([facility] through Ziyad Brown MD), Refill Request; Refill Quantity : 25; Tablet; Not Available Not Available Not Available Vitals Date Recorded Body height Body mass index (BMI) Body weight Oxygen saturation Oxygen saturation in Arterial blood by Pulse oximetry Body temperature Heart rate Systolic And Diastolic Provider Name and Address Organization Details Last Updated DateTime 5 147.32 cm 22.6 kg/m2 79584.9 8 g 99 % 99 % 98 [degF] 91 /min 116/58 mm[Hg] Mayte Arroyo [facility] 5 10:06:18 Date Recorded Body height Body mass index (BMI) Body weight Oxygen saturation Oxygen saturation in Arterial blood by Pulse oximetry Heart rate Body temperature Systolic And Diastolic Provider Name and Address Organization Details Last Updated DateTime 5 147.32 cm 22.2 kg/m2 21388.7 9 g 99 % 99 % 75 /min 98.1 [degF] 116/72 mm[Hg] Mayte Arroyo [facility] 5 09:32:30 Date Recorded Body height Body mass index (BMI) Body weight Oxygen saturation Oxygen saturation in Arterial blood by Pulse oximetry Heart rate Respiratory rate Systolic And Diastolic Provider Name and Address Organization Details Last Updated DateTime 5 152.4 cm 20.9 kg/m2 55694.3 8 g 99 % 99 % 100 /min 20 /min 122/80 mm[Hg] VICKY LAWRENCE [facility] 5 15:42:56 Social History Question Answer Notes LastModified by [employer] [place] Details LastModified Time Tobacco Smoking Status Never Smoker [facility] 07/16/2024 10:03:05 What Is Your Level Of Caffeine Consumption? Moderate Energy Drinks Information not available 11/04/2024 What Was The Date Of Your Most Recent Tobacco Screening? 11/04/2024 Information not available 11/04/2024 Sex: Unknown Functional Status Question Answer Note LastModified by [employer] [place] Details LastModified Time Do you use any illicit or recreational drugs? No [email or web address] Information not available 11/04/2024 Do you or have you ever used any other forms of tobacco or nicotine? No Information not available 11/04/2024 What is your level of alcohol consumption? None [email or web address] Information not available 11/04/2024 Are you currently employed? Yes [email or web address] Information not available 11/04/2024 Are you able to walk independently without assistance or assistive devices? [email or web address] Information not available 11/04/2024 Are you able to care for yourself independently? Yes [email or web address] Information not available 11/04/2024 Do you or have you ever used any nicotine-free cigarettes, vape, or chewing tobacco? No Information not available 11/04/2024 Mental Status None recorded. Family History Relationship Description Onset Age of this Age Resolved Age Notes LastModified by Organization Details LastModified Time Father Essential hypertension [email or web address] Not available 15:39:16 Mother Crohn's disease [email or web address] Not available 11/04 15:39:32 Medical History No medical history recorded. Gynecological HistoryNo gynecological history recorded. Obstetrics History GPAL:G 0 P 0 0 0 0 Immunizations Vaccine Type Date Status Note Provider Nam e and Address Organization Details Recorded Time MMR 9 completed Not Available [facility] 01/26/2023 02:52:08 pneumococcal polysaccharide PPV23 9 completed Not Available [facility] 01/26/2023 02:52:08 Influenza, split virus, trivalent, preservative 9 completed Not Available [facility] 01/26/2023 02:52:08 Past Encounters Encounter ID Performer Location Encounter Start Date Encounter Closed Date Diagnosis/Indication Diagnosis SNOMED-CT Code Diagnosis ICD10 Code Diagnosis IMO Codes Diagnosis Note [id number] Toby Yo MD [facility] ([facility]) [address] [place] [address] 07/16/2024 09:56:35 07/20/2024 12:33:55 Urticaria 006749789 L50.9 Rash is very urticaria like and is concerning for possible allergic reaction to something. Other possibilit ies could be chronic urticaria, however other causes have not been completely excluded. Will treat with steroids. Discussed utilizing antihistam charla as well. Follow-up with PCP if symptoms are not improving, worsening, or recurring. [id number] Toby Yo MD [facility] ([facility]) [address] [place] [phone] 10/08/2024 09:25:28 10/08/2024 18:57:35 Infection of sebaceous cyst 138743600 L72.3 Mildly infected sebaceous cyst. Will start topical treatment. Recommend following up with PCP if symptoms do not improve. Patient may also want to consider excisional procedure to remove the cyst after infection has resolved. [id number] ANA VALDIVIA [facility] ([facility]) [address] [place] [phone] 11/04/2024 15:13:40 11/04/2024 16:19:02 Pain of right breast 2494730324 N64.4 N63.10 [id number] Health Concerns Section Related Observation LastModified by Organization Detai ls LastModified Time None Recorded Concern Status LastModified by Organization Details LastModified Time None Recorded Advance Directives Directive None Recorded Payers Insurance Date Sequence Insurance Name Policy Number Policy Parrish Covered Member ID Parrish Member ID Guarantor Name 11/10/2024 1 [facility] [id number] Rebekah Linn [id number] Rebekah Linn Notes Date Note Type Note Provider Name and Address Organization Details Recorded Time 07/16/2024 text/html ROS as noted in the HPI walk Devonte is a 29-year-old female that comes in today with a rash to her face and neck. Patient states that she awoke this way. Patient denies any new soaps or detergents. Patient denies any new medications. Patient states that she has had symptoms like this previously. Toby Yo MD [address] [place] [address], [phone], [facility] 07/19/2024 09:51:23 10/08/2024 text/html ROS as noted in the HPI Walk Zehra had cyst to back for years friend tried to pop it and did get drainage but since has increased in size and pain. Toby Yo MD [address] [place] [address], [phone], [facility] [place] 10/08/2024 18:55:19 11/04/2024 text/html Breast PainRepor sukhwinder by PatientHPIFor location, patient reportsright. For onset/timing, patient reports2-7 days. For duration, patient reportsconstant. For quality, patient reportsthrobbing. For severity, patient reportsmoderate. For associated symptoms, patient reportsno fever. TIEN FOFANA, [employer] [address] [place], [phone], [facility] [place] 11/04/2024 16:10:35 OBGyn Episode No OBEpisode recorded.
--- NOTE | 2025-04-03 08:07 | ED_ITS ---
HPI - Nausea/Vomiting/Diarrhea 2 General: Chief complaint: Nausea/Vomiting/Diarrhea Stated complaint: NVD Time Seen by Provider: 04/03/25 07:59 Source: patient Mode of arrival: ambulatory Limitations: no limitations History of Present Illness: 30-year-old female states she has been h aving vomiting since around midnight. States she has had multiple episodes been having some abdominal cramping only when she vomits. States she has had this in the past. She denies any fever denies any worsening improving factors. She has had a cholecystectomy along with appendectomy. Denies any alcohol use or drug use Related Data Previous Rx's ?Medication ?Instructions ?Recorded epinephrine 0.3 mg/0.3 mL 0.3 mg (0.3 mL) IM Q15M PRN 09/24/23 injection, auto-injector anaphylaxis #2 ea ondansetron 4 mg disintegrating 4 mg PO Q6H PRN nausea and 04/03/25 tablet vomiting #14 tabs Allergies Allergy/AdvReac Type Severity Reaction Status Date / Time No Known Allergies Allergy Verified 10/22/23 11:00 Review of Systems 2 GI: Reports: vomiting PFSH ED 2 PFSH: Medical History 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 Brown Benign hypertension Has chronic hypertension diagnosed in 2018 and is not currently on any medication. This is managed by her primary care provider Surgical History (Updated 10/04/23 @ 12:59 by Juan Alberto Sharma MD) Hx laparoscopic cholecystectomy 09/23/23 Dr Chin History of appendectomy Laparoscopic procedure performed in 2011 Family History Father Hypertension CAD (coronary artery disease) Stroke CVA in 30's Mother Crohn's disease Denies family history of Colon cancer Ovarian cancer Diabetes Clotting disorder Dementia Heart disease Hyperlipidemia Chronic kidney disease (CKD) Breast cancer Suicide Anesthesia complication Bleeding disorder Lung disease Cancer Uterine cancer Thyroid disease Social History Smoking and tobacco/nicotine status: never used tobacco/nicotine Alcohol intake: never Substance/Drug Use: never Lives independently: Yes Marital status: Number of children: 3 Current occupational status: employed Current occupation: [employer] Current gender identity: Female Physical Exam 2 Const: COMMON NORMALS: no acute distress, patient oriented x3 and healthy appearing HENMT: COMMON NORMALS: normocephalic and atraumatic HEAD & SCALP: n ormocephalic and atraumatic Neck/C-Spine: COMMON NORMALS: full ROM and supple Chest: COMMONS NORMALS: normal inspection of the chest Resp: COMMON NORMALS: normal respiratory effort Cardio: COMMON NORMALS: regular rate, regular rhythm and No murmurs present (Cardio) RATE: regular rate RHYTHM: regular rhythm GI: COMMON NORMALS: Normal to inspection, nondistended, normoactive bowel sounds present, Soft to palpation, non-tender and no masses PALPATION: Yes Soft to palpation Extremity: COMMON NORMALS: normal to inspection and full ROM Neuro: COMMON NORMALS: patient oriented x3, moves all extremities and no focal motor deficits Psych: COMMON NORMALS: mental status grossly normal, Normal thought process present and cooperative THOUGHT PROCESS: Normal thought process present Skin: COMMON NORMALS: no rashes or lesions noted and no wounds GENERAL SKIN EXAM: no rashes or lesions noted Course 2 Vital Signs: Vital signs: Vital Signs Temperature 97.8 F 04/03/25 08:08 Pulse Rate 110 H 04/03/25 09:45 Respiratory Rate 20 H 04/03/25 08:08 Blood Pressure 112/86 04/03/25 09:45 Pulse Oximetry 98 04/03/25 09:45 Oxygen Delivery Me thod Room Air 04/03/25 09:45 MDM - Nausea/Vomiting/Diarrhea Medical Decision Making Patient presents here the vomiting is likely gastroenteritis. Her initial and repeat abdominal exam here is benign she has no tenderness no signs of acute surgical abdomen or small bowel obstruction. She does have an elevated white count is likely stress reaction from vomiting she had some ketones in her urine likely from dehydration she felt much improved here after IV fluids and nausea meds she is able to tolerate p.o. here. Electrolytes here were normal urinalysis was normal as well patient prescribed Zofran I did go over the labs with her she is stable for discharge follow-up with PCP return if worsening she understands agrees to plan. Medical Records I reviewed the patient's medical records. Lab Data I reviewed the patient's lab results. 04/03/25 08:09 04/03/25 08:09 Laboratory Results WBC 16.37 10^3/uL (3.29-11.43) H 04/03/25 08:09 RBC 4.68 10^6/uL (3.85-5.65) 04/03/25 08:09 Hgb 14.50 g/dL (11.27-16.99) 04/03/25 08:09 Hct 42.8 % (36-47) 04/03/25 08:09 MCV 91.5 fl (85-98) 04/03/25 08:09 MCH 31.0 pg (27-33) 04/03/25 08:09 MCHC 33.9 g/dL (30-55) 04/03/25 08:09 RDW 12.0 % (12.1-15.1) L 04/03/25 08:09 Plt Count 355 10^3/cmm (157-399) 04/03/25 08:09 MPV 9.0 fL (7.4-10.4) 04/03/25 08:09 Neut % (Auto) 94.6 % 04/03/25 08:09 Lymph % (Auto) 2.9 % 04/03/25 08:09 [place] % (Auto) 1.7 % 04/03/25 08:09 Eos % (Auto) 0.2 % 04/03/25 08:09 Baso % (Auto) 0.2 % 04/03/25 08:09 Neut # (Auto) 15.47 10^3/uL (1.8-7.7) H 04/03/25 08:09 Lymph # (Auto) 0.5 10^3/uL (0.8-4.8) L 04/03/25 08:09 [place] # (Auto) 0.3 10^3/uL (0.2-0.9) 04/03/25 08:09 Eos # (Auto) 0.0 10^3/uL (0.0-0.8) 04/03/25 08:09 Baso # (Auto) 0.0 10^3/uL (0.0-0.1) 04/03/25 08:09 Nucleated RBC % (auto) 0 % 04/03/25 08:09 Nucleated RBCs # 0.0 /100WBC 04/03/25 08:09 Sodium 136 mmol/L (136-145) 04/03/25 08:09 Potassium 3.8 mmol/L (3.5-5.1) 04/03/25 08:09 Chloride 102 mmol/L (98-107) 04/03/25 08:09 Carbon Dioxide 20 mmol/L (22-29) L 04/03/25 08:09 Anion Gap 17.8 (5-19) 04/03/25 08:09 BUN 13 mg/dL (6-20) 04/03/25 08:09 Creatinine 0.6 mg/dL (0.5-0.9) 04/03/25 08:09 GFR Calculation 117.4 mL/min (90-130) 04/03/25 08:09 Glucose 124 mg/dL (65-115) H 04/03/25 08:09 Calculated Osmolality 284 mOsm/kg (285-295) L 04/03/25 08:09 Calcium 9.1 mg/dL (8.5-10.5) 04/03/25 08:09 Total Bilirubin 1.2 mg/dL (0.15-1.2) 04/03/25 08:09 AST 14 U/L (0-32) 04/03/25 08:09 ALT 12 U/L (0-33) 04/03/25 08:09 Alkaline Phosphatase 73 U/L (35-105) 04/03/25 08:09 Total Protein 7.8 g/dL (6.6-8.7) 04/03/25 08:09 Albumin 4.8 g/dL (3.5-5.2) 04/03/25 08:09 Globulin 3.0 g/dL (1.3-4.6) 04/03/25 08:09 Lipase 23 U/L (13-60) 04/03/25 08:09 HCG, Qual Negative (Negative) 04/03/25 08:09 Urine Color Yellow (Yellow) 04/03/25 09:08 Urine Appearance Clear (CLEAR) 04/03/25 09:08 Urine pH 8.0 (5-7) A 04/03/25 09:08 Ur Specific [place] 1.015 (1.005-1.030) 04/03/25 09:08 Urine Protein Negative (Negative) 04/03/25 09:08 Urine Glucose (UA) Negative (Normal) 04/03/25 09:08 Urine Ketones 2+ (Negative) H 04/03/25 09:08 Urine Blood Negative (Negative) 04/03/25 09:08 Urine Nitrate Negative (Negative) 04/03/25 09:08 Urine Bilirubin Negative (Negative) 04/03/25 09:08 Urine Urobilinogen 1.0 mg/dL (Negative) 04/03/25 09:08 Ur Leukocyte Esterase Negative (Negative) 04/03/25 09:08 Amorphous Sediment Not Reportable 04/03/25 09:08 No radiology studies performed this visit Discharge Plan Discharge Patient Disposition: Home Clinical Impression: Vomiting Qualifiers: Vomiting type: unspecified Nausea presence: with nausea Qualified Code(s): R 11.2 - Nausea with vomiting, unspecified Condition: Stable Prescriptions: New ondansetron 4 mg tablet,disintegrating 4 mg PO Q6H PRN (Reason: nausea and vomiting) Qty: 14 0RF No Action epinephrine 0.3 mg/0.3 mL auto-injector 0.3 mg IM Q15M PRN (Reason: anaphylaxis) Qty: 2 0RF Rx Instructions: for 2 doses Discharge Orders: Discharge ED (Routine); Ordered 04/03/25 Ordered By: Joanne Pinon Referrals: Juan Alberto Sharma MD [Primary Care Provider, Family Practice] - 4-7 days Discharge Diet: Advance as tolerated Discharge Activity: Resume usual activity Patient Instructions: Acute Nausea and Vomiting (ED) Print Language: Khmer Coding Level of Care Code ED Tetryl Boiling Tub Operator for Cristian Sutton
[2025-04-03 08:08] VITALS: BP 122/78; PULSE 103; RESP 20; TEMP 36.6; O2SAT 99; BMI 21.2
[2025-04-03] MEDS: ondansetron 2 mg/ML SDV 2 mL 4 MG IVP (08:08)
[2025-04-03 08:16] LABS: Hematocrit 42.8 % (36-47); Hemoglobin 14.50 g/dL (11.27-16.99); Mean Corpuscular HGB Conc 33.9 g/dL (30-55); Mean Corpuscular Hemoglobin 31.0 pg (27-33); Mean Corpuscular Volume 91.5 fl (85-98); Nucleated Red Blood Cells % 0 %; Platelet Count 355 10^3/cmm (157-399); Red Blood Count 4.68 10^6/uL (3.85-5.65); White Blood Count 16.37 10^3/uL (3.29-11.43)
[2025-04-03 08:31] LABS: Alanine Aminotransferase 12 U/L (0-33); Albumin Level 4.8 g/dL (3.5-5.2); Alkaline Phosphatase 73 U/L (35-105); Anion Gap 17.8 (5-19); Aspartate Amino Transferase 14 U/L (0-32); Blood Urea Nitrogen 13 mg/dL (6-20); Calcium 9.1 mg/dL (8.5-10.5); Carbon Dioxide 20 mmol/L (22-29); Chloride 102 mmol/L (98-107); Creatinine Clr Calc Pharmacy 103.0816; Globulin 3.0 g/dL (1.3-4.6); Glucose 124 mg/dL (65-115); Lipase 23 U/L (13-60); Osmolality Calculated 284 mOsm/kg (285-295); Potassium 3.8 mmol/L (3.5-5.1); Sodium 136 mmol/L (136-145); Total Protein 7.8 g/dL (6.6-8.7)
[2025-04-03 08:32] LABS: HCG, Serum Qual Negative (Negative)
[2025-04-03 08:48] VITALS: BP 121/98; PULSE 106; O2SAT 99
[2025-04-03 09:11] LABS: Add Urine Microscopic? NO
[2025-04-03 09:17] LABS: Glucose Urine UA Negative (Normal); Nitrate Urine Negative (Negative); Specific Gravity, Urine 1.015 (1.005-1.030)
[2025-04-03 09:19] LABS: Charge for UA Resulting for Rev
[2025-04-03 09:45] VITALS: BP 112/86; PULSE 110; O2SAT 98
[2025-04-03] MEDS: diphenhydrAMINE 50 mg/mL SDV 1mL 25 MG IVP (09:45)
[2025-04-03] MEDS: metoclopramide 5 mg/mL SDV 2 mL IVP (09:45)
== END 2025-04-03 10:09 | disposition home or self-care (01) ==
PROVIDERS: Emergency Provider Emergency Medicine; PCP Family Medicine
DX: R11.2 Nausea with vomiting, unspecified (principal); I10 Essential (primary) hypertension
CPT/HCPCS: 36415; 80053; 81003; 83690; 84703; 85025; 96361; 96374; 96375; 99284; J1200; J2405; J2765; J7030

== ENCOUNTER 2025-06-28 12:31 | Outpatient (CLI) | payer OTHER, BC, MEDICAID, SELFPAY ==
--- NOTE | 2025-06-28 12:37 | US_ITS ---
WS: [id number] ULTRASOUND BREAST RIGHT TECHNIQUE: Ultrasound right breast focused area of concern. CLINICAL INFORMATION: PAINFUL LUMPY RT BREAST COMPARISON: 11/19/2024 FINDINGS: Ultrasound RIGHT breast 7 o'clock position 3 cm from the nipple. Dense underlying parenchymal tissue. Again seen is the small hypoechoic area measuring 8 x 9 x 4 mm which is unchanged in appearance compared to previous. Recommend additional 6-month follow-up to confirm 1 year stability. US/US breast RT limited* [id number] IMPRESSION: BI-RADS 3 probably benign Follow-up: Ultrasound in 6 months
== END 2025-06-28 12:32 | disposition home or self-care (01) ==
LOC: RAD 12:32
PROVIDERS: PCP Family Medicine; Visit Provider Nurse Practitioner Family
DX: N64.4 Mastodynia (principal); R92.30 Dense breasts, unspecified; N63.13 Unspecified lump in the right breast, lower outer quadrant
CPT/HCPCS: 76642